=== PATIENT | male | born 1935 | race Caucasian/White ===

== ENCOUNTER → 2022-08-22 | Outpatient (CLI) | payer MEDICARE, BC ==
[2022-08-22 12:24] LABS: Partial Thromboplastin Time 50.7 sec (22.0-30.0); Prothrombin Time 86.8 sec (9.0-12.0)
[2022-08-22 12:26] LABS: INR 8.6 (<1.2)
== END | disposition home or self-care (01) ==
LOC: LABWHC1 10:57
PROVIDERS: ATTEND Nurse Practitioner Adult Health
DX: I48.0 Paroxysmal atrial fibrillation (principal)
CPT/HCPCS: 36415; 85610; 85730

== ENCOUNTER → 2022-09-07 | Outpatient (CLI) | payer MEDICARE, BC ==
[2022-09-07 11:07] LABS: Prothrombin Time 96.1 sec (9.0-12.0)
[2022-09-07 12:25] LABS: INR 9.4 (<1.2)
== END | disposition home or self-care (01) ==
LOC: LABWHC1 10:15
PROVIDERS: ATTEND Nurse Practitioner Adult Health
DX: I48.11 Longstanding persistent atrial fibrillation (principal)
CPT/HCPCS: 36415; 85610

== ENCOUNTER 2023-02-07 19:28 | Emergency (ER) | payer MEDICARE, BC ==
[2023-02-07 19:46] VITALS: TEMP 97.5
[2023-02-07] MEDS ORDERED: MORPHINE SULFATE 4 MG/ML SYRINGE IM STA (20:03)
--- NOTE | 2023-02-07 20:04 | ED ---
General Adult HPI - General Chief complaint: Extremity Injury, Lower Stated complaint: Fall Source: patient Mode of arrival: EMS Limitations: no limitations - History of Present Illness Initial comments: A 88-year-old male on Coumadin presents to the ED with a chief complaint of fall. Patient states he lost his balance and he fell forward onto the cement. Patient states that he was able to catch himself with his hands and notes that he landed on his right knee. Denies head injury at this time. No LOC. Now notes pain of his ribs and his right knee. Denies difficulty breathing. Denies headache. No other complaints. - Related Data Home Medications Medication Instructions Recorded Confirmed Digoxin [Lanoxin] 250 mcg PO DAILY 03/15/16 03/21/16 Glimepiride [Amaryl] 2 mg PO DAILY 03/15/16 03/21/16 Pioglitazone [Actos] 15 mg PO DAILY 03/15/16 03/21/16 Tamsulosin [Flomax] 0.4 mg PO Q48H 03/15/16 03/21/16 Warfarin [Coumadin] 5 mg PO DAILY 03/15/16 03/21/16 amLODIPine [Norvasc] 5 mg PO DAILY 03/15/16 03/21/16 atenoloL [Tenormin] 25 mg PO BID 03/15/16 03/21/16 hydrALAZINE HCL [Apresoline] 50 mg PO DAILY 03/15/16 03/21/16 hydroCHLOROthiazide [Hydrodiuril] 25 mg PO DAILY 03/15/16 03/21/16 lisinopriL [Zestril] 20 mg PO DAILY 03/15/16 03/21/16 sitaGLIPtin PHOS/metFORMIN HCL 1 each PO DAILY 03/15/16 03/21/16 [Janumet 50-500 mg Tablet] Previous Rx's Medication Instructions Recorded Cephalexin [Keflex] 500 mg PO Q8HR #10 cap 03/21/16 Acetaminophen [Tylenol Extra 500 mg PO Q8HR #30 tablet 02/07/23 Strength] Allergies Allergy/AdvReac Type Severity Reaction Status Date / Time No Known Allergies Allergy Verified 02/07/23 19:42 Review of Systems ROS Statement: Those systems with pertinent positive or pertinent negative responses have been documented in the HPI. ROS Other: All systems not noted in ROS Statement are negative. Past Medical History Past Medical History: Diabetes Mellitus, Hypertension, Osteoarthritis (OA) Additional Past Medical History / Comment(s): hiatal hernia, History of Any Multi-Drug Resistant Organisms: None Reported Past Surgical History: Pacemaker Additional Past Surgical History / Comment(s): saeid cataracts Past Anesthesia/Blood Transfusion Reactions: No Reported Reaction Type of Cardiac Device: Permanent Pacemaker Device Placement Date:: 2007 Past Psychological History: No Psychological Hx Reported Smoking Status: Former smoker Past Alcohol Use History: None Reported Past Drug Use History: None Reported - Past Family History Mother Family Medical History: Cancer Father Family Medical History: Cancer General Exam Limitations: no limitations General appearance: alert, in no apparent distress Head exam: Present: atraumatic, normocephalic Neck exam: Present: other (No midline cervical spinal tenderness to palpation) Respiratory exam: Present: normal lung sounds bilaterally Cardiovascular Exam: Present: regular rate, normal rhythm Extremities exam: Present: tenderness (Tenderness around the right patella. No crepitus or step-off. Surrounding soft tissue swelling.), other (Strength and sensation of bilateral upper and lower extremities equal and intact. DP PT pulses 2+.) Neurological exam: Present: alert, oriented X3 Skin exam: Present: warm, dry Course Vital Signs 02/07/23 19:36 Temperature 97.5 F L Pulse Rate 74 Respiratory 20 Rate Blood Pressure 172/86 O2 Sat by Pulse 95 Oximetry Medical Decision Making - Medical Decision Making Was pt. sent in by a medical professional or institution (, PA, EXTRACTIONS TECHNOLOGIST, urgent care, hospital, or fci...) When possible be specific @ -No Did you speak to anyone other than the patient for history (EMS, parent, family, police, friend...)? What history was obtained from this source @ -No Did you review nursing and triage notes (agree or disagree)? Why? @ -I reviewed and agree with nursing and triage notes Were old charts reviewed (outside hosp., previous admission, EMS record, old EKG, old radiological studies, urgent care reports/EKG's, fci records)? Report findings @ - reviewed showing patient on Coumadin. Differential Diagnosis (chest pain, altered mental status, abdominal pain women, abdominal pain men, vaginal bleeding, weakness, fever, dyspnea, syncope, headache, dizziness, GI bleed, back pain, seizure, CVA, palpatations, mental health, musculoskeletal)? @ -Acute fracture, acute hemorrhage. This is not meant to be an all-inclusive list. EKG interpreted by me (3pts min.). @ -None X-rays interpreted by me (1pt min.). @ -x-Ray showed showed no acute process of the chest or right knee. CT interpreted by me (1pt min.). @ -None done U/S interpreted by me (1pt. min.). @ -None done What testing was considered but not performed or refused? (CT, X-rays, U/S, labs)? Why? @ -None What meds were considered but not given or refused? Why? @ -None Did you discuss the management of the patient with other professionals (professionals i.e. , PA, EXTRACTIONS TECHNOLOGIST, lab, RT, psych nurse, social media analyst, application security consultant, teacher, radiological defense officer, case reviewer)? Give summary @ -No Was smoking cessation discussed for >3mins.? @ -No Was critical care preformed (if so, how long)? @ -No Were there social determinants of health that impacted care today? How? (Homelessness, low income, unemployed, alcoholism, drug addiction, transportation, low edu. Level, literacy, decrease access to med. care, residential, rehab)? @ -No Was there de-escalation of care discussed even if they declined (Discuss DNR or withdrawal of care, Hospice)? DNR status @ -No What co-morbidities impacted this encounter? (DM, HTN, Smoking, COPD, CAD, Cancer, CVA, ARF, Chemo, Hep., AIDS, mental health diagnosis, sleep apnea, morbid obesity)? @ -None Was patient admitted / discharged? Hospital course, mention meds given and route, prescriptions, significant lab abnormalities, going to OR and other pertinent info. @ -Discharged. Imaging as above. Patient provided 4 mg morphine with improvement of the pain. Discharged home in stable condition. Undiagnosed new problem with uncertain prognosis? @ -No Drug Therapy requiring intensive monitoring for toxicity (Heparin, Nitro, Insulin, Cardizem)? @ -No Were any procedures done? @ -No Diagnosis/symptom? @ -Fall, knee pain. Acute, or Chronic, or Acute on Chronic? @ -Acute Uncomplicated (without systemic symptoms) or Complicated (systemic symptoms)? @ -Uncomplicated Side effects of treatment? @ -No Exacerbation, Progression, or Severe Exacerbation? @ -No Poses a threat to life or bodily function? How? (Chest pain, [place], [place], pneumonia, PE, COPD, DKA, ARF, appy, cholecystitis, CVA, Diverticulitis, Homicidal, Suicidal, threat to staff... and all critical care pts) @ -No Disposition Clinical Impression: Knee pain Disposition: HOME SELF-CARE Condition: Good Instructions (If sedation given, give patient instructions): Knee Pain (ED) Additional Instructions: Please return to the Emergency Department if symptoms worsen or any other concerns. Prescriptions: Acetaminophen [Tylenol Extra Strength] 500 mg PO Q8HR #30 tablet Is patient prescribed a controlled substance at d/c from ED?: No Referrals: Kranthi Cuevas DO [Primary Care Provider] - 1-2 days
--- NOTE | 2023-02-07 20:51 | XR ---
EXAMINATION TYPE: XR chest 2V DATE OF EXAM: 01/27/2010 COMPARISON: Chest radiographs from 01/27/2010 TECHNIQUE: XR chest 2V Frontal and lateral views of the chest. CLINICAL INDICATION:Male, 88 years old with history of fall, rib pain; FINDINGS: Lungs/Pleura: There is no evidence of pleural effusion, focal consolidation, or pneumothorax. Pulmonary vascularity: Unremarkable. Heart/mediastinum: Cardiomediastinal silhouette is unremarkable. Two lead cardiac conduction device o verlying the left hemithorax with lead tips projecting over the right ventricle and right atrium. Musculoskeletal: No acute osseous pathology. IMPRESSION: No acute cardiopulmonary disease/process.
--- NOTE | 2023-02-07 20:52 | XR ---
EXAMINATION TYPE: XR knee complete RT DATE OF EXAM: 02/07/2023 8:43 PM INDICATION: Patient age:Male; 88 years old; Reason for study: r knee pain s/p fall; COMPARISON: None. TECHNIQUE: The Right knee(s) was examined in Frontal, lateral and oblique projections. FINDINGS: No evidence of any acute osseous pathology, soft tissue swelling, or joint effusion is no christine. Tricompartmental osteophyte formation involving the femoral condyles, tibial plateau and patell a. Mild joint space narrowing. Prepatellar edema. Quadriceps insertional enthesophyte on the patella. Enthesophyte of the tibial tuberosity. Atherosclerosis of the arterial vasculature. IMPRESSION: 1. No acute osseous pathology. 2. Moderate tricompartmental osteoarthritic changes. 3. Mild prepatellar edema.
[2023-02-07 22:06] VITALS: BP 157/75; PULSE 63; RESP 18
== END 2023-02-07 22:06 | disposition home or self-care (01) ==
LOC: EC 19:28
DX: M17.11 Unilateral primary osteoarthritis, right knee (principal); I10 Essential (primary) hypertension; E11.9 Type 2 diabetes mellitus without complications; M19.90 Unspecified osteoarthritis, unspecified site; Z87.891 Personal history of nicotine dependence; Z79.899 Other long term (current) drug therapy; W18.30XA Fall on same level, unspecified, initial encounter
CPT/HCPCS: 73562; 71046; 99283; 96372; J2270

== ENCOUNTER 2023-05-26 08:39 | Inpatient (IN) | payer MEDICARE, BC ==
--- NOTE | 2023-05-26 08:54 | ED ---
Fall HPI - General Chief Complaint: Fall Stated Complaint: Fall, Fractured Hip Time Seen by Provider: 05/26/23 08:40 Source: patient, EMS Mode of arrival: EMS Limitations: physical limitation - History of Present Illness Initial Comments: 88-year-old male presents emergency from via EMS chief complaint of trip and fall. Patient states that he may have struck his head but complains primarily of right hip pain. Patient states that he was given morphine by EMS. Patient is on Coumadin. Patient was placed in c-collar by EMS. Patient denies any fevers or chills no other complaints. Patient denies chest pain shortness of breath - Related Data Home Medications Medication Instructions Recorded Confirmed Glimepiride [Amaryl] 2 mg PO DAILY 03/15/16 05/26/23 Pioglitazone [Actos] 15 mg PO DAILY 03/15/16 05/26/23 Warfarin [Coumadin] 5 mg PO DAILY 03/15/16 05/26/23 amLODIPine [Norvasc] 5 mg PO DAILY 03/15/16 05/26/23 atenoloL [Tenormin] 25 mg PO DAILY 03/15/16 05/26/23 hydrALAZINE HCL [Apresoline] 50 mg PO TID 03/15/16 05/26/23 hydroCHLOROthiazide [Hydrodiuril] 25 mg PO DAILY 03/15/16 05/26/23 lisinopriL [Zestril] 20 mg PO BID 03/15/16 05/26/23 metFORMIN HCL [Glucophage] 1,000 mg PO BID 05/26/23 05/26/23 Allergies Allergy/AdvReac Type Severity Reaction Status Date / Time No Known Allergies Allergy Verified 05/26/23 12:07 Review of Systems ROS Statement: Those systems with pertinent positive or pertinent negative responses have been documented in the HPI. ROS Other: All systems not noted in ROS Statement are negative. Past Medical History Past Medical History: Diabetes Mellitus, Hypertension, Osteoarthritis (OA) Additional Past Medical History / Comment(s): hiatal hernia, History of Any Multi-Drug Resistant Organisms: None Reported Past Surgical History: Pacemaker Additional Past Surgical History / Comment(s): saeid cataracts Past Anesthesia/Blood Transfusion Reactions: No Reported Reaction Type of Cardiac Device: Permanent Pacemaker Device Placement Date:: 2007 Past Psychological History: No Psychological Hx Reported Smoking Status: Former smoker Past Alcohol Use History: None Reported Past Drug Use History: None Reported - Past Family History Mother Family Medical History: Cancer Father Family Medical History: Cancer General Exam Limitations: no limitations General appearance: alert, in no apparent distress Head exam: Present: atraumatic, normocephalic, normal inspection Eye exam: Present: normal appearance, PERRL, EOMI. Absent: scleral icterus, conjunctival injection, periorbital swelling ENT exam: Present: normal exam, mucous membranes moist Neck exam: Present: normal inspection. Absent: tenderness, meningismus, full ROM (Patient c-collar), lymphadenopathy Respiratory exam: Present: normal lung sounds bilaterally. Absent: respiratory distress, wheezes, rales, rhonchi, stridor Cardiovascular Exam: Present: regular rate, normal rhythm, normal heart sounds. Absent: systolic murmur, diastolic murmur, rubs, gallop, clicks Extremities exam: Present: other (Right hip tenderness, there is minimal shortening, pedal pulses palpable and equal) Back exam: Present: full ROM. Absent: tenderness Course Vital Signs 05/26/23 05/26/23 05/26/23 08:40 10:00 11:00 Temperature 98.2 F Pulse Rate 59 L 62 59 L Respiratory 22 18 18 Rate Blood Pressure 189/88 158/68 160/74 O2 Sat by Pulse 99 98 98 Oximetry 05/26/23 05/26/23 11:36 12:00 Temperature Pulse Rate 60 104 H Respiratory 18 18 Rate Blood Pressure 160/74 160/74 O2 Sat by Pulse 91 L 93 L Oximetry Medical Decision Making - Medical Decision Making Was pt. sent in by a medical professional or institution (, PA, ENVELOPE FOLDING MACHINE OPERATOR, urgent care, hospital, or long term...) When possible be specific @ -No Did you speak to anyone other than the patient for history (EMS, parent, family, police, friend...)? What history was obtained from this source @ -Family and EMS providing prehospital injury vitals treatment medications pro vided Did you review nursing and triage notes (agree or disagree)? Why? @ -I reviewed and agree with nursing and triage notes Were old charts reviewed (outside hosp., previous admission, EMS record, old EKG, old radiological studies, urgent care reports/EKG's, long term records)? Report findings @ -No old charts were reviewed Differential Diagnosis (chest pain, altered mental status, abdominal pain women, abdominal pain men, vaginal bleeding, weakness, fever, dyspnea, syncope, headache, dizziness, GI bleed, back pain, seizure, CVA, palpatations, mental health, musculoskeletal)? @ -Fall, hip fracture, intracranial hemorrhage EKG interpreted by me (3pts min.). @ -As above X-rays interpreted by me (1pt min.). @ -Chest x-ray shows no acute process right hip, pelvis x-ray showing right IT fracture CT interpreted by me (1pt min.). @ -CT brain, C-spine show no acute intracranial hemorrhage, cervical fracture U/S interpreted by me (1pt. min.). @ -None done What testing was considered but not performed or refused? (CT, X-rays, U/S, labs)? Why? @ -None What meds were considered but not given or refused? Why? @ -None Did you discuss the management of the patient with other professionals (professionals i.e. , PA, ENVELOPE FOLDING MACHINE OPERATOR, lab, RT, psych nurse, social insurance adviser, insole and outsole preparer, teacher, building drafting officer, telephonic nurse case manager)? Give summary @ -[facility] on-call for orthopedics accepts admission Was smoking cessation discussed for >3mins.? @ -No Was critical care preformed (if so, how long)? @ -No Were there social determinants of health that impacted care today? How? (Homelessness, low income, unemployed, alcoholism, drug addiction, transportation, low edu. Level, literacy, decrease access to med. care, long term, rehab)? @ -No Was there de-escalation of care discussed even if they declined (Discuss DNR or withdrawal of care, Hospice)? DNR status @ -No What co-morbidities impacted this encounter? (DM, HTN, Smoking, COPD, CAD, Cancer, CVA, ARF, Chemo, Hep., AIDS, mental health diagnosis, sleep apnea, morbid obesity)? @ -None Was patient admitted / discharged? Hospital course, mention meds given and route, prescriptions, significant lab abnormalities, going to OR and other pertinent info. @ -Admitted patient is admitted to orthopedic service with consult to medicine for surgical clearance patient has a right hip fracture. Patient was provided analgesics symptoms are stable time. Undiagnosed new problem with uncertain prognosis? @ -No Drug Therapy requiring intensive monitoring for toxicity (Heparin, Nitro, Insulin, Cardizem)? @ -No Were any procedures done? @ -No Diagnosis/symptom? @ -Fall, right IT fracture Acute, or Chronic, or Acute on Chronic? @ -Acute Uncomplicated (without systemic symptoms) or Complicated (systemic symptoms)? @ -complicated Side effects of treatment? @ -No Exacerbation, Progression, or Severe Exacerbation? @ -No Poses a threat to life or bodily function? How? (Chest pain, [place], [place], pneumonia, PE, COPD, DKA, ARF, appy, cholecystitis, CVA, Diverticulitis, Homicidal, Suicidal, threat to staff... and all critical care pts) @ -No - Lab Data Result diagrams: 05/26/23 08:54 05/26/23 08:54 Lab Results 05/26/23 05/26/23 05/26/23 Range/Units 08:54 08:54 08:54 WBC 12.8 H (3.8-10.6) k/uL RBC 4.46 (4.30-5.90) m/uL Hgb 13.9 (13.0-17.5) gm/dL Hct 41.8 (39.0-53.0) % MCV 93.7 (80.0-100.0) fL MCH 31.2 (25.0-35.0) pg MCHC 33.3 (31.0-37.0) g/dL RDW 13.3 (11.5-15.5) % Plt Count 136 L (150-450) k/uL MPV 12.0 Neutrophils % 86 % Lymphocytes % 4 % Monocytes % 8 % Eosinophils % 0 % Basophils % 0 % Neutrophils # 11.1 H (1.3-7.7) k/uL Lymphocytes # 0.5 L (1.0-4.8) k/uL Monocytes # 1.1 H (0-1.0) k/uL Eosinophils # 0.0 (0-0.7) k/uL Basophils # 0.0 (0-0.2) k/uL PT 12.4 H (9.0-12.0) sec INR 1.2 H (<1.2) APTT 19.8 L (22.0-30.0) sec Sodium 134 L (137-145) mmol/L Potassium 3.8 (3.5-5.1) mmol/L Chloride 95 L (98-107) mmol/L Carbon Dioxide 18 L (22-30) mmol/L Anion Gap 21 mmol/L BUN 25 H (9-20) mg/dL Creatinine 1.20 (0.66-1.25) mg/dL Est GFR (CKD-EPI)AfAm 63 (>60 ml/min/1.73 sqM) Est GFR (CKD-EPI)NonAf 54 (>60 ml/min/1.73 sqM) Glucose 402 H (74-99) mg/dL Calcium 9.3 (8.4-10.2) mg/dL Total Bilirubin 2.1 H (0.2-1.3) mg/dL AST 43 (17-59) U/L ALT 31 (4-49) U/L Alkaline Phosphatase 96 (38-126) U/L Total Protein 7.1 (6.3-8.2) g/dL Albumin 4.1 (3.5-5.0) g/dL - EKG Data -: EKG Interpreted by Me EKG Comments: EKG performed a: 47 paced rhythm at 60 a 263 QRS 200 QT/QTC 531/531 Disposition Clinical Impression: Fall, Fracture, intertrochanteric, right femur Disposition: ADMITTED IP TO THIS HOSP Condition: Fair Time of Disposition: 10:54
[2023-05-26 09:24] LABS: Basophils % (A) 0 %; Eosinophils % (A) 0 %; HCT 41.8 % (39.0-53.0); HGB 13.9 gm/dL (13.0-17.5); Lymphocytes # (A) 0.5 k/uL (1.0-4.8); Lymphocytes % (A) 4 %; MCH 31.2 pg (25.0-35.0); MCHC 33.3 g/dL (31.0-37.0); MCV 93.7 fL (80.0-100.0); Monocytes # (A) 1.1 k/uL (0-1.0); Monocytes % (A) 8 %; Neutrophils # (A) 11.1 k/uL (1.3-7.7); Neutrophils % (A) 86 %; Platelet Count 136 k/uL (150-450); RBC 4.46 m/uL (4.30-5.90); RDW 13.3 % (11.5-15.5); WBC 12.8 k/uL (3.8-10.6)
[2023-05-26 09:38] LABS: ALT 31 U/L (4-49); AST 43 U/L (17-59); African American GFR (CKD) 63 (>60 ml/min/1.73 sqM); Albumin 4.1 g/dL (3.5-5.0); Alkaline Phosphatase 96 U/L (38-126); Anion Gap 21 mmol/L; Blood Urea Nitrogen 25 mg/dL (9-20); Calcium 9.3 mg/dL (8.4-10.2); Carbon Dioxide 18 mmol/L (22-30); Chloride 95 mmol/L (98-107); Glucose 402 mg/dL (74-99); Non-African American GFR(CKD) 54 (>60 ml/min/1.73 sqM); Potassium 3.8 mmol/L (3.5-5.1); Sodium 134 mmol/L (137-145); Total Bilirubin 2.1 mg/dL (0.2-1.3); Total Protein 7.1 g/dL (6.3-8.2)
--- NOTE | 2023-05-26 09:49 | CT ---
EXAMINATION TYPE: CT brain kody gee DATE OF EXAM: 05/26/2023 COMPARISON: None HISTORY: fall CT DLP: 1483.2 mGycm Automated exposure control for dose reduction was used. TECHNIQUE: CT scan of the head and cervical spine are performed without contrast. FINDINGS: Head CT: The ventricles, basal cisterns and sulci over convexities within normal limits and there is no mass e ffect or shift of midline structures. There is no acute intra or extra-axial hemorrhage. There is moderate chronic white matter demyelination. The posterior fossa is grossly normal. The intraorbital contents appear normal and symmetric. There are mild chronic inflammatory changes in the maxillary sinuses but there are no air-fluid level s to suggest acute sinusitis. The mastoid air cells are well aerated. The calvarium and overlying soft tissues are intact. CT cervical spine. Cervical vertebral segments are normal in height and alignment and there is no fracture subluxation. The craniovertebral junction ratio is normal. There is mild to moderate degenerative disease throughout the cervical region greatest at the C5-6 an d C6-7 levels where there is mild to moderate disc space narrowing and spondylosis. There is moderate facet and uncovertebral joint arthropathy throughout the cervical region. IMPRESSION: 1. No acute trauma to the head or neck. 2. No acute bleed or mass effect 3. No acute trauma to the cervical spine but significant degenerative disc disease and osteoarthritic changes as described above.
[2023-05-26 09:59] LABS: INR 1.2 (<1.2); Prothrombin Time 12.4 sec (9.0-12.0)
[2023-05-26 10:22] LABS: Partial Thromboplastin Time 19.8 sec (22.0-30.0)
[2023-05-26] MEDS ORDERED: SODIUM CHLORIDE 0.9% 500 ML 500 ML IV ONE (10:26)
[2023-05-26] MEDS ORDERED: INSULIN REGULAR 100 UNIT/ML VIAL (IV) IV ONE (10:26)
[2023-05-26] MEDS ORDERED: HYDROmorphone 0.5 MG/0.5 ML SYRINGE IVP STA (10:46)
[2023-05-26] MEDS ORDERED: ONDANSETRON 4 MG/2 ML VIAL IVP PRN (10:55)
[2023-05-26] MEDS ORDERED: NALOXONE 0.4 MG/ML 1 ML VIAL IV PRN (10:55)
--- NOTE | 2023-05-26 10:55 | XR ---
EXAMINATION TYPE: XR Hip RT and AP Pelvis DATE OF EXAM: 05/26/2023 COMPARISON: None HISTORY: Pain following fall TECHNIQUE: A single AP view of the pelvis is obtained. Two views of the right hip are obtained. FINDINGS: There is a displaced intertrochanteric fracture of the right hip. The left hip is intact. The pelvic ring is intact without diastasis or fracture. IMPRESSION: 1. Displaced intertrochanteric fracture the right hip. 2. No pelvic fracture.
--- NOTE | 2023-05-26 10:57 | XR ---
EXAMINATION TYPE: XR chest 1V DATE OF EXAM: 05/26/2023 COMPARISON: 02/07/2023 HISTORY: Fall TECHNIQUE: Single frontal view of the chest is obtained. FINDINGS: There is a 2-lead cardiac pacemaker. Cardiac silhouette is normal in size and there is no pulmonary v ascular congestion. There is no airspace/consolidative opacity There is mild interstitial prominence which was seen previously and is likely chronic. There is no pneumothorax or pleural effusion. The osseous structures are intact IMPRESSION: 1. No acute cardiopulmonary disease. 2. No evidence of acute trauma.
--- NOTE | 2023-05-26 11:41 | XR ---
Right femur. HISTORY: Pain findings trauma COMPARISON: None TECHNIQUE: 4 portable views of the right femur were obtained FINDINGS: There is a displaced intertrochanteric fracture of the right femur. There is no right hip dislocation . Mid and distal right femur are intact. IMPRESSION: Displaced intertrochanteric fracture of the right femur.
[2023-05-26] MEDS ORDERED: ACETAMINOPHEN TAB 325 MG TAB PO PRN (12:26)
--- NOTE | 2023-05-26 12:28 | P.HPOR ---
History of Present Illness H&P Date: 05/26/23 Chief Complaint: Right hip pain Patient is an 88-year-old male who presents to the emergency department early this morning status post fall at home. Orthopedics was contacted due to a right hip IT fracture. Patient was seen at bedside with present during encounter late this morning. Patient states he is having a lot of right hip pain at this time. Patient states at 2 AM this morning he got up out of bed to use the bathroom when he tripped and fell landing on his right hip on the floor. Patient denies hitting his head/losing consciousness. Patient states imm ediately began to have right hip pain and could not get up under his own power. Patient was brought into the hospital via EMS. X-ray of the right hip does demonstrate right hip IT fracture. Patient states the pain is somewhat controlled with pain medication, however, patient states the pain is sharp. She says there is some radiation of pain down the right leg. Patient denies any numbness/tingling. Patient says he does have a pacemaker and is currently on Coumadin, however, patient does not take his medication regularly and cannot recall last dose of Coumadin he did take. Patient does follow with Dr. Akhtar for cardiology. Patient's glucose was 400 when he came in this morning. Vandanatomasz lassiter does follow with Dr. Cuevas for primary care. Patient denies any previous orthopedic surgical history. Patient usually ambulates independently at home. Patient denies chest pain, fever, [place] breath, nausea, lying, change in vision, loss of bowel/bladder control. Past Medical History Past Medical History: Diabetes Mellitus, Hypertension, Osteoarthritis (OA) Additional Past Medical History / Comment(s): hiatal hernia, History of Any Multi-Drug Resistant Organisms: None Reported Past Surgical History: Pacemaker Additional Past Surgical History / Comment(s): saeid cataracts Past Anesthesia/Blood Transfusion Reactions: No Reported Reaction Type of Cardiac Device: Permanent Pacemaker Device Placement Date:: 2007 Past Psychological History: No Psychological Hx Reported Smoking Status: Former smoker Past Alcohol Use History: None Reported Past Drug Use History: None Reported - Past Family History Mother Family Medical History: Cancer Father Family Medical History: Cancer Medications and Allergies Home Medications Medication Instructions Recorded Confirmed Type Glimepiride [Amaryl] 2 mg PO DAILY 03/15/16 05/26/23 History Pioglitazone [Actos] 15 mg PO DAILY 03/15/16 05/26/23 History Warfarin [Coumadin] 5 mg PO DAILY 03/15/16 05/26/23 History amLODIPine [Norvasc] 5 mg PO DAILY 03/15/16 05/26/23 History atenoloL [Tenormin] 25 mg PO DAILY 03/15/16 05/26/23 History hydrALAZINE HCL [Apresoline] 50 mg PO TID 03/15/16 05/26/23 History hydroCHLOROthiazide [Hydrodiuril] 25 mg PO DAILY 03/15/16 05/26/23 History lisinopriL [Zestril] 20 mg PO BID 03/15/16 05/26/23 History metFORMIN HCL [Glucophage] 1,000 mg PO BID 05/26/23 05/26/23 History Allergies Allergy/AdvReac Type Severity Reaction Status Date / Time No Known Allergies Allergy Verified 05/26/23 12:07 Physical Examination Inspection: Right leg is shortened and actually rotated. Negative for erythema/open fractures. Negative for ecchymosis Sensation: Equal, symmetric, bilaterally intact at the upper and lower extremities on exam. Palpation: Significant tenderness to palpation throughout right hip on exam. Nontender to palpation throughout rest of exam Range of motion: Patient has full range of motion bilateral upper extremities on exam. There is no range of motion throughout the right lower extremity secondary to injury and pain in the right hip. Patient has full range of motion left lower extremity exam Motor: 4/5 in all major motor groups left lower extremity and bilateral upper extremities. Motor exam not performed in right hip and knee secondary to injury. Right ankle 3/5 in resisted dorsi/plantar flexion. Neurovascular: Radial pulses intact, 2+ bilaterally. DP pulse intact bilaterally. Cap refill under 3 seconds in digits upper extremities. Special tests: Positive log roll maneuver on the right. Negative Homans bilaterally. Negative clonus bilaterally. Negative Reynaldo Results - Labs Labs: Abnormal Lab Results - Last 24 Hours (Table) 05/26/23 05/26/23 05/26/23 Range/Units 08:54 08:54 08:54 WBC 12.8 H (3.8-10.6) k/uL Plt Count 136 L (150-450) k/uL Neutrophils # 11.1 H (1.3-7.7) k/uL Lymphocytes # 0.5 L (1.0-4.8) k/uL Monocytes # 1.1 H (0-1.0) k/uL PT 12.4 H (9.0-12.0) sec INR 1.2 H (<1.2) APTT 19.8 L (22.0-30.0) sec Sodium 134 L (137-145) mmol/L Chloride 95 L (98-107) mmol/L Carbon Dioxide 18 L (22-30) mmol/L BUN 25 H (9-20) mg/dL Glucose 402 H (74-99) mg/dL Total Bilirubin 2.1 H (0.2-1.3) mg/dL H & H 05/26/23 Range/Units 08:54 Hgb 13.9 (13.0-17.5) gm/dL Hct 41.8 (39.0-53.0) % Coagulation 05/26/23 Range/Units 08:54 INR 1.2 H (<1.2) Result Diagrams: 05/26/23 08:54 05/26/23 08:54 - Diagnostic results Hip x-ray: report reviewed, image reviewed (Right hip x-ray does demonstrate right hip IT fracture) Assessment and Plan Assessment: 1. Right hip IT fracture status post fall Plan: 1. Right hip IT fracture - patient examined at bedside this morning in the emergency department. X-ray of the right hip does demonstrate right hip IT fracture. Surgery has been scheduled for tomorrow, 05/27/2023 - right hip IM nail. Patient to be nothing by mouth after midnight tonight. Medicine has been consulted for clearance. Patient does have pacemaker and is currently on Coumadin - cardiology consulted for clearance as well. Regular diet for today. Nothing by mouth at midnight tonight. Remain nonweightbearing right l ower extremity at this time. Withhold thinners at this time. We'll continue to follow patient during a standard hospital. 2. Appreciate medical and cardio management -patient does need clearance for surgery 3. Pain management - Tylenol; [place] 4. DVT prophylaxis - mechanical; withhold thinners at this time 5. GI prophylaxis - senna 6. PT/OT - nonweightbearing right lower extremity 7. Encourage incentive spirometer use Time with Patient: Less than 30
[2023-05-26] MEDS: HYDROmorphone 0.5 MG/0.5 ML SYRINGE IVP PRN ×2 (14:01→19:43)
[2023-05-26] MEDS ORDERED: DEXTROSE 50% SYRINGE 50 ML IVP PRN ×2 (14:39)
--- NOTE | 2023-05-26 14:41 | P.CONS ---
History of Present Illness - Reason for Consult Consult date: 05/26/23 Medical management - History of Present Illness History of present illness; patient is a 88-year-old gentleman with past medical history significant for hypertension, diabetes mellitus, atrial fibrillation on Coumadin who presented to the hospital because of a fall. Patient apparently woke up this morning to use the restroom when he tripped and fell landing on his right side. Patient denies losing consciousness. Denies hitting his head. Patient was complaining of pain in his right hip and was not able to get up on his own, patient was brought to the ER. Initial lab work done in the ER showed WBC 12.8, hemoglobin 13.9, platelet count 136, sodium 134, potassium 3.8, BUN 25, creatinine 1.2 X-ray of the right hip does demonstrate right hip IT fracture Patient was admitted to orthopedics service REVIEW OF SYSTEMS: CONSTITUTIONAL: No fever, no malaise, no fatigue. HEENT: No recent visual problems or hearing problems. Denied any sore throat. CARDIOVASCULAR: No chest pain, orthopnea, PND, no palpitations, no syncope. PULMONARY: No shortness of breath, no cough, no hemoptysis. GASTROINTESTINAL: No diarrhea, no nausea, no vomiting, no abdominal pain. NEUROLOGICAL: No headaches, no weakness, no numbness. HEMATOLOGICAL: Denies any bleeding or petechiae. GENITOURINARY: Denies any burning micturition, frequency, or urgency. MUSCULOSKELETAL/RHEUMATOLOGICAL: Right hip pain ENDOCRINE: Denies any polyuria or polydipsia. The rest of the 14-point review of systems is negative. PHYSICAL EXAMINATION: GENERAL: The patient is alert and oriented x3, not in any acute distress. Well developed, well nourished. HEENT: Pupils are round and equally reacting to light. EOMI. No scleral icterus. No conjunctival pallor. Normocephalic, atraumatic. No pharyngeal erythema. No thyromegaly. CARDIOVASCULAR: S1 and S2 present. No murmurs, rubs, or gallops. PULMONARY: Chest is clear to auscultation, no wheezing or crackles. ABDOMEN: Soft, nontender, nondistended, normoactive bowel sounds. No palpable organomegaly. MUSCULOSKELETAL: Right leg externally rotated EXTREMITIES: No cyanosis, clubbing, or pedal edema. NEUROLOGICAL: Gross neurological examination did not reveal any focal deficits. SKIN: No rashes. Assessment and plan Right hip fracture Hypertension [id number] diabetes mellitus Monitor vital signs Monitor CBC Monitor CMP Fall precautions Continue pain management per orthopedics Hold Coumadin for now Resume blood pressure medications Cardiology consulted for cardiac clearance Patient is medically cleared , patient has moderate risk for complications Labs and medication were reviewed.. Continue same treatment. Continue with symptomatic treatment. Resume home medication. Monitor labs and vitals. DVT and GI prophylaxis. Further recommendations as per clinical course of the patient Dictation was produced using [employer] dictation software. please excuse any grammatical, word or spelling errors. Past Medical History Past Medical History: Diabetes Mellitus, Hypertension, Osteoarthritis (OA) Additional Past Medical History / Comment(s): hiatal hernia, History of Any Multi-Drug Resistant Organisms: None Reported Past Surgical History: Pacemaker Additional Past Surgical History / Comment(s): saeid cataracts Past Anesthesia/Blood Transfusion Reactions: No Reported Reaction Type of Cardiac Device: Permanent Pacemaker Device Placement Date:: 2007 Past Psychological History: No Psychological Hx Reported Smoking Status: Former smoker Past Alcohol Use History: None Reported Past Drug Use History: None Reported - Past Family History Mother Family Medical History: Cancer Father Family Medical History: Cancer Medications and Allergies Home Medications Medication Instructions Recorded Confirmed Type Glimepiride [Amaryl] 2 mg PO DAILY 03/15/16 05/26/23 History Pioglitazone [Actos] 15 mg PO DAILY 03/15/16 05/26/23 History Warfarin [Coumadin] 5 mg PO DAILY 03/15/16 05/26/23 History amLODIPine [Norvasc] 5 mg PO DAILY 03/15/16 05/26/23 History atenoloL [Tenormin] 25 mg PO DAILY 03/15/16 05/26/23 History hydrALAZINE HCL [Apresoline] 50 mg PO TID 03/15/16 05/26/23 History hydroCHLOROthiazide [Hydrodiuril] 25 mg PO DAILY 03/15/16 05/26/23 History lisinopriL [Zestril] 20 mg PO BID 03/15/16 05/26/23 History metFORMIN HCL [Glucophage] 1,000 mg PO BID 05/26/23 05/26/23 History Allergies Allergy/AdvReac Type Severity Reaction Status Date / Time No Known Allergies Allergy Verified 05/26/23 12:07 Physical Exam Vitals: Vital Signs Temp Pulse Resp BP Pulse Ox 05/26/23 12:00 104 H 18 160/74 93 L 05/26/23 11:36 60 18 160/74 91 L 05/26/23 11:00 59 L 18 160/74 98 05/26/23 10:00 62 18 158/68 98 05/26/23 08:40 98.2 F 59 L 22 189/88 99 Intake and Output 05/25/23 05/26/23 05/26/23 22:59 06:59 14:59 Other: Weight 81.647 kg Results CBC & Chem 7: 05/26/23 08:54 05/26/23 08:54 Labs: Abnormal Lab Results - Last 24 Hours (Table) 05/26/23 05/26/23 05/26/23 Range/Units 08:54 08:54 08:54 WBC 12.8 H (3.8-10.6) k/uL Plt Count 136 L (150-450) k/uL Neutrophils # 11.1 H (1.3-7.7) k/uL Lymphocytes # 0.5 L (1.0-4.8) k/uL Monocytes # 1.1 H (0-1.0) k/uL PT 12.4 H (9.0-12.0) sec INR 1.2 H (<1.2) APTT 19.8 L (22.0-30.0) sec Sodium 134 L (137-145) mmol/L Chloride 95 L (98-107) mmol/L Carbon Dioxide 18 L (22-30) mmol/L BUN 25 H (9-20) mg/dL Glucose 402 H (74-99) mg/dL Total Bilirubin 2.1 H (0.2-1.3) mg/dL
[2023-05-26 14:48] LABS: Glucose,Whole Blood 384 mg/dL (70-110)
[2023-05-26] MEDS: hydrALAZINE HCL 50 MG TAB PO SCH ×2 (15:38→21:59)
[2023-05-26] MEDS: HYDROcodone/APAP 5-325MG 1 EACH TAB PO PRN (15:38)
[2023-05-26 16:30] LABS: Glucose,Whole Blood 345 mg/dL (70-110)
[2023-05-26] MEDS: INSULIN ASPART (NovoLOG) 100 UNIT/ML VIAL SQ SCH ×2 (17:08→21:59)
[2023-05-26] MEDS ORDERED: INSULIN ASPART (NovoLOG) 100 UNIT/ML VIAL SQ ONE (17:20)
[2023-05-26 19:42] LABS: Glucose,Whole Blood 315 mg/dL (70-110)
[2023-05-26 21:55] LABS: Glucose,Whole Blood 238 mg/dL (70-110)
[2023-05-26] MEDS: lisinopriL 20 MG TAB PO SCH (21:59)
[2023-05-27] MEDS: HYDROmorphone 0.5 MG/0.5 ML SYRINGE IVP PRN ×4 (01:05→20:14)
[2023-05-27 06:08] LABS: Glucose,Whole Blood 213 mg/dL (70-110)
[2023-05-27] MEDS: INSULIN ASPART (NovoLOG) 100 UNIT/ML VIAL SQ SCH ×4 (06:14→21:03)
--- NOTE | 2023-05-27 08:16 | P.CRDCN ---
History of Present Illness History of present illness: Stable for surgery continue cardiac meds periop complete heart block, s/p [place] ppm magnet over device intraop atorvastatin added full consult to follow Past Medical History Past Medical History: Diabetes Mellitus, Hypertension, Osteoarthritis (OA) Additional Past Medical History / Comment(s): hiatal hernia, History of Any Multi-Drug Resistant Organisms: None Reported Past Surgical History: Pacemaker Additional Past Surgical History / Comment(s): saeid cataracts Past Anesthesia/Blood Transfusion Reactions: No Reported Reaction Type of Cardiac Device: Permanent Pacemaker Device Placement Date:: 2007 Past Psychological History: No Psychological Hx Reported Smoking Status: Former smoker Past Alcohol Use History: None Reported Additional Past Alcohol Use History / Comment(s): quit smoking 50 yrs, smoked for 15 yrs- mostly pipe or cigar Past Drug Use History: None Reported - Past Family History Mother Family Medical History: Cancer Father Family Medical History: Cancer Medications and Allergies Home Medications Medication Instructions Recorded Confirmed Type Glimepiride [Amaryl] 2 mg PO DAILY 03/15/16 05/26/23 History Pioglitazone [Actos] 15 mg PO DAILY 03/15/16 05/26/23 History Warfarin [Coumadin] 5 mg PO DAILY 03/15/16 05/26/23 History amLODIPine [Norvasc] 5 mg PO DAILY 03/15/16 05/26/23 History atenoloL [Tenormin] 25 mg PO DAILY 03/15/16 05/26/23 History hydrALAZINE HCL [Apresoline] 50 mg PO TID 03/15/16 05/26/23 History hydroCHLOROthiazide [Hydrodiuril] 25 mg PO DAILY 03/15/16 05/26/23 History lisinopriL [Zestril] 20 mg PO BID 03/15/16 05/26/23 History metFORMIN HCL [Glucophage] 1,000 mg PO BID 05/26/23 05/26/23 History Allergies Allergy/AdvReac Type Severity Reaction Status Date / Time No Known Allergies Allergy Verified 05/26/23 12:07 Physical Exam Vitals: Vital Signs Temp Pulse Pulse Resp BP BP Pulse Ox 05/27/23 02:00 98.9 F 65 18 132/66 96 05/26/23 21:56 67 141/70 05/26/23 20:00 98.9 F 55 L 18 146/79 94 L 05/26/23 15:40 98.1 F 60 20 176/82 96 05/26/23 12:00 104 H 18 160/74 93 L 05/26/23 11:36 60 18 160/74 91 L 05/26/23 11:00 59 L 18 160/74 98 05/26/23 10:00 62 18 158/68 98 05/26/23 08:40 98.2 F 59 L 22 189/88 99 Intake and Output 05/26/23 05/27/23 05/27/23 22:59 06:59 14:59 Output Total 1140 500 Balance -1140 -500 Output: Urine 1140 500 Other: Voiding Method Indwelling Catheter Weight 81.647 kg Results 05/26/23 08:54 05/26/23 08:54 Cardiac Enzymes 05/26/23 05/26/23 05/26/23 Range/Units 08:54 15:15 19:10 AST 43 (17-59) U/L Troponin I 0.066 H* 0.069 H* (0.000-0.034) ng/mL Coagulation 05/26/23 Range/Units 08:54 PT 12.4 H (9.0-12.0) sec APTT 19.8 L (22.0-30.0) sec CBC 05/26/23 Range/Units 08:54 WBC 12.8 H (3.8-10.6) k/uL RBC 4.46 (4.30-5.90) m/uL Hgb 13.9 (13.0-17.5) gm/dL Hct 41.8 (39.0-53.0) % Plt Count 136 L (150-450) k/uL Comprehensive Metabolic Panel 05/26/23 Range/Units 08:54 Sodium 134 L (137-145) mmol/L Potassium 3.8 (3.5-5.1) mmol/L Chloride 95 L (98-107) mmol/L Carbon Dioxide 18 L (22-30) mmol/L BUN 25 H (9-20) mg/dL Creatinine 1.20 (0.66-1.25) mg/dL Glucose 402 H (74-99) mg/dL Calcium 9.3 (8.4-10.2) mg/dL AST 43 (17-59) U/L ALT 31 (4-49) U/L Alkaline Phosphatase 96 (38-126) U/L Total Protein 7.1 (6.3-8.2) g/dL Albumin 4.1 (3.5-5.0) g/dL Current Medications Generic Name Dose Route Start Last Admin Trade Name Freq PRN Reason Stop Dose Admin Acetaminophen 650 mg 05/26/23 12:26 Acetaminophen Tab 325 Mg Tab PO Q6HR PRN Fever and/ or Pain Hydrocodone Bitart/Acetaminophen 1 each 05/26/23 10:55 05/26/23 15:38 Hydrocodone/Apap 5-325mg 1 Each Tab PO 1 each Q4HR PRN Administration Moderate Pain (Scale 4 to 6) Amlodipine Besylate 5 mg 05/27/23 09:00 Amlodipine 5 Mg Tab PO DAILY [facility] Atenolol 25 mg 05/27/23 09:00 Atenolol 25 Mg Tab PO DAILY [facility] Dextrose/Water 25 ml 05/26/23 14:39 Dextrose 50% Syringe 50 Ml IVP PER PROTOCOL PRN Hypoglycemia Protocol Dextrose/Water 50 ml 05/26/23 14:39 Dextrose 50% Syringe 50 Ml IVP PER PROTOCOL PRN Hypoglycemia Protocol Hydralazine HCl 50 mg 05/26/23 16:00 05/26/23 21:59 Hydralazine Hcl 50 Mg Tab PO 50 mg TID [facility]ERALD Administration Hydromorphone HCl 0.5 mg 05/26/23 10:55 05/27/23 06:13 Hydromorphone 0.5 Mg/0.5 Ml Syringe IVP 0.5 mg Q3HR PRN Administration Moderate Pain (Scale 4 to 6) Insulin Aspart 0 unit 05/26/23 17:30 05/27/23 06:14 Insulin Aspart (Novolog) 100 Unit/Ml Vial SQ 100 unit ACHS GERALD Administration Protocol Lisinopril 20 mg 05/26/23 21:00 05/26/23 21:59 Lisinopril 20 Mg Tab PO 20 mg BID GERALD Administration Naloxone HCl 0.2 mg 05/26/23 10:55 Naloxone 0.4 Mg/Ml 1 Ml Vial IV Q2M PRN Opioid Reversal Ondansetron HCl 4 mg 05/26/23 10:55 Ondansetron 4 Mg/2 Ml Vial IVP Q8HR PRN Nausea And Vomiting Senna 8.6 mg 05/27/23 09:00 Sennosides 8.6 Mg Tab PO DAILY GERALD Intake and Output 05/26/23 05/27/23 05/27/23 22:59 06:59 14:59 Output Total 1140 500 Balance -1140 -500 Output: Urine 1140 500 Other: Voiding Method Indwelling Catheter Weight 81.647 kg 05/26/23 08:54 05/26/23 08:54
[2023-05-27] MEDS: atenoloL 25 MG TAB PO SCH (09:33)
[2023-05-27] MEDS: lisinopriL 20 MG TAB PO SCH ×2 (09:33→21:03)
[2023-05-27] MEDS: SENNOSIDES 8.6 MG TAB PO SCH (09:33)
[2023-05-27] MEDS: ATORVASTATIN 40 MG TAB PO SCH (09:33)
[2023-05-27] MEDS: HYDROcodone/APAP 5-325MG 1 EACH TAB PO PRN ×2 (09:33→17:32)
[2023-05-27] MEDS: amLODIPine 5 MG TAB PO SCH (09:33)
[2023-05-27] MEDS: hydrALAZINE HCL 50 MG TAB PO SCH ×3 (09:33→21:03)
--- NOTE | 2023-05-27 11:09 | P.PN ---
Progress Note - Text Progress Note Date: 05/27/23 Orthopedic Surgery Risk Review James Marte is a 88-year-old male presenting for evaluation of sudden onset right hip pain, inability to ambulate after fall from standing at home in the bathroom. It was my pleasure to have seen and examined James Marte. In our visit today we have had a chance to go over subjective complaints, physical examination findings and treatments including the natural course history without intervention and various interventional options. His imaging demonstrates right intertrochanteric fracture with subtrochanteric extension. On physical exam, James Marte demonstrates pain with motion of right lower extremity, which is NV intact at this time. I have explained to the patient that this fracture needs stabilization. Based on the patients imaging, physical exam, and the rapid progression and disabling nature of her symptoms, at this time I recommend surgery in the form or a: intramedullary nail fixation of right hip I discussed the risk and benefits of this procedure at length with James Marte and family at bedside including . Questions were invited and answered, and the patient wishes to proceed as outlined below. Currently, I am recommendin. intramedullary nail fixation right hip 2. Review of surgical risks and benefits as well as an educational packet on the proposed surgical procedure. Risks: All surgical procedures come with inherent risks, including those related to positioning, anesthesia, intraoperative findings, and postoperative complications. It is important to understand that surgery does not come with any guarantee of a successful outcome as complications and adverse events are always possible. The patient was given a handout discussing the surgical procedure and risks associated with the intervention, both of which were discussed with the patient. These risks include but are not limited to the following: - Experiencing same, different or even worse symptoms compared to before surgery. - Requiring further surgery or other forms of treatment presently or at some time in the future . - On an extreme but fortunately relatively rare basis severe complication such as blindness, stroke, heart attack, temporary and/or permanent nerve injury, paralysis, coma, or may occur, sometimes without known explanation. - Surgical complications may include but are not limited to risk of infection, fluid accumulation in the surgical dissection site, including a seroma or hematoma, that requires additional surgery, wound drainage, bleeding, new numbness or weakness, vision changes/loss, spinal fluid leakage, non-healing and/or infected incision, headaches, difficulty or inability to swallow, hoarseness, hemopneumothorax, pneumothorax, injury to nerves, spinal cord, blood vessels, lymphatics or other vital organs (i.e., bowel injury, injury to the great vessels); heterotopic bone formation; complications related to the hardware such as screws, rods, including misplaced hardware, device failure, hardware fracture/breakage, or hardware loosening; retained surgical instrumen tations or devices and the need for further surgery. - Medical risks of the planned surgery include but are not limited to generalized Infections to the whole body or local areas outside of the surgical site (sepsis), heart attack, bleeding, anaphylaxis, meningitis, seizure, epilepsy, hearing loss, burn mendoza, laceration of the head or other areas of the body, bruising, hypersensitivity of the skin, bladder over distension; allergic reaction; shoulder injury related to positioning; fat, blood and air clots to other areas of the body like heart, lungs, brain; failure of internal organs such as lungs, kidneys, liver and excessive bleeding. If blood transfusions are necessary, note that transfusions may cause intolerance reactions such as anaphylaxis or other complex reactions. Despite best efforts, the results of surgery might not heal in terms of bone, soft tissues such as skin, fascia, ligaments, and joints. [facility] has multiple operating rooms with single and overlapping rooms running daily. They currently function under the required guidelines as produced by the [employer] Committee with regards to the overlapping rooms and will continue to comply with changes to this policy as they occur. The requirements include and are complied with as follows: (1) the critical portions of the overlapping rooms will not occur at the same time, (2) the attending physician will be physically present during the critical portions of the procedure and immediately available during the entire case, and (3) a back-up attending is designated should the primary attending not be immediately available. The patient has had a chance to review all the listed information, has been given print outs detailing this information, and has had all his/her questions a nswered to their satisfaction. It was my pleasure to have seen and examined James Marte. In our visit today we have had a chance to go over my understanding of our patient's current condition, the natural course history without intervention and various interventional options. Questions were invited and answered, and the patient wishes to proceed as outlined above. I have seen and examined the patient for 25 minutes and we have spent more than 50% of the time in repeat and detailed counseling about the patient's condition, its natural course history with out and as much as can be predicted with surgery and re-review of various surgical treatment options. In conclusion, James Marte and family at bedside including his requested we proceed with the above suggested surgery and are willing to accept risks and limitations of the suggested surgery as nature of the disease process and our best attempts at treatment for the condition. Thank you again for allowing us to be part of your patient's care. Please don't hesitate to contact me if you have any further questions. Signed and authenticated by: Delbert Trivedi [facility] [address] [place] [address]
[2023-05-27] MEDS ORDERED: fentaNYL (PF) 50 MCG/ML 2 ML AMP ONE (11:13)
[2023-05-27] MEDS ORDERED: KETAMINE HCL IN 0.9 % NACL 50 MG/5 ML SYRINGE ONE (11:13)
[2023-05-27] MEDS ORDERED: MIDAZOLAM 2 MG/2 ML VIAL ONE (11:13)
[2023-05-27] MEDS ORDERED: IV FLUID CONTINUATION 1,000 ML IV ONE (11:20)
[2023-05-27] MEDS ORDERED: SODIUM CHLORIDE 0.9% 100 ML with ceFAZolin 2,000 MG IV ONE ×2 (11:20)
[2023-05-27] MEDS ORDERED: NALOXONE 0.4 MG/ML 1 ML VIAL IV PRN (11:21)
[2023-05-27] MEDS ORDERED: MAGNESIUM HYDROXIDE 2,400 MG/30 ML CUP PO PRN (11:21)
[2023-05-27] MEDS ORDERED: TRANEXAMIC 1,000 MG/100ML-NACL 1,000 MG in SALINE 1 100ML.BAG IVPB PRN (11:23)
--- NOTE | 2023-05-27 12:20 | P.OP ---
Date of Procedure: 05/27/23 Preoperative Diagnosis: 1. RIGHT IT FRACTURE, 3 PART UNSTABLE 2. S/P FFS Postoperative Diagnosis: 1. RIGHT IT FRACTURE, 3 PART UNSTABLE 2. S/P FFS Procedure(s) Performed: 1. RIGHT HIP INTRAMEDULLARY NAIL FIXATION Implants: [employer] intertan short 125 deg 11 mm Anesthesia: MAC, spinal Surgeon: Delbert Stubbs Logistics Clerk #1: Naman Fitch (ZOEY Foley Was present and assisted with all aspects of the case from positioning to dressing placement) Estimated Blood Loss (ml): 50 IV fluids (ml): 1,200 Urine output (ml): 250 Pathology: none sent Indications for Procedure: James Marte is a 88-year-old male presenting for evaluation of sudden onset right hip pain, inability to ambulate after fall from standing at home in the bathroom. It was my pleasure to have seen and examined James Marte. In our visit today we have had a chance to go over subjective complaints, physical examination findings and treatments including the natural course history without intervention and various interventional options. His imaging demonstrates right intertrochanteric fracture with subtrochanteric extension. On physical exam, James Marte demonstrates pain with motion of right lower extremity, which is NV intact at this time. I have explained to the patient that this fracture needs stabilization. Based on the patients imaging, physical exam, and the rapid progression and disabling nature of her symptoms, at this time I recommend surgery in the form or a: intramedullary nail fixation of right hip I discussed the risk and benefits of this procedure at length with James Matre and family at bedside including . Questions were invited and answered, and the patient wishes to proceed as outlined below. Currently, I am recommendin. intramedullary nail fixation right hip Description of Procedure: Right hip short IMN The patient was seen and examined in the preoperative area. All preoperative protocols were followed. Informed consent was obtained risks and benefits of the procedure were discussed at length. Risks including bleeding infection damage to the surrounding tissue and risk of reoperation were discussed with the patient. Risk of anesthesia up to and including was a discussed with the patient. These are outlined in the risk reviewed. They were willing to accept these risks and all of the risks of surgery. The patient was given a weight-based dose of antibiotics in the form of 2 g Ancef. The patient was seen and evaluated by the anesthesia team who deemed them fit for surgery. The site was marked, the patient was willing to proceed with the procedure. The patient was transferred to the operative suite by the Department of anesthesia. There were then drifted off to sleep by the department of anesthesia andGETA anesthesia was used. Once adequate anesthesia had been obtained the patient was carefully transferred to the operative bed. All bony prominences were padded accordingly. SCDs were placed on the nonoperative lower extremities. Arms were well padded. the patient was transferred to the Radha table and her right leg was placed in a Radha boot and secured to the table left leg was placed in a well-leg rhodes well padded and secured. The post was placed and she was secured appropriately. arms were placed on arm boards and well-padded Preoperative briefing was done with the operative team and everyone was ready for the procedure to start. Xray used to reduce the fracture with Radha table. The patients right leg was then prepped and draped in the normal sterile fashion. Timeout was then performed and all parties in agreement with the procedure to be performed. X-ray was then used to meliza 2 cm proximal to the GT. Skin incision made in line with the femur and blunt dissection taken down to the deep facia which was split. Blut dissetion then taken down to the tip of the GT and the sharp awl used. Optimal starting point achieved on AP and Lateral imaging. Awl was then advaced into the proximal femur. Ball tip guidewire was then passed into the femur. It was confirmed on Ap and laterl. Opening reamer then passed followed by 9, 11 and 13 mm reamers. Then the nail was selected and impacted into place over the wire using flouroscopic guidance. Once in position the lateral guide was placed and skin incisoin made in line with the femur over the lateral aspect. Dissection taken down through the tensor facia which was split inline with its fibers. The guide was seated against bone. Pin was placed through guide for the lag screw to be with in 10mm on Ap and lateral of the subchondarl bone. This was then measured. Appropriate sized compression screw then selected and drilled. Then the lag screw drilled. Lag screw placed over the wire followed by the compression screw. About 7 mm of compression was achieved. Good alignment in AP and lateral shown. The nail was then locked proximally. Distal locking screw was then placed through the jig using similar technique. Screw was drilled and measured and placed. AP and lateral confirmed good placement and good fracture reduction as well as stability in ROM. The guid was then removed from the nail. The wound was then copiously irrigated with normal sterile saline final AP and lateral fluoroscopic imaging confirmed good placement of pins as well as reduction of fracture. The deep fascia was then closed with 0 Vicryl superficial closed 2-0 Vicryl and skin closed with skin jeniffer the wound edges approximated very well. The wound was then cleaned and dressed with an optifoam dressing. The patient was then transferred back to their hospital bed. There were awakened by department of anesthesia having tolerated the procedure very well with no complications. The patient was then transported to the postoperative care unit in stable condition.
--- NOTE | 2023-05-27 12:36 | XR ---
Intraoperative fluoroscopy and spot films were fixation of right hip fracture. 46 seconds of fluoroscopy and 5 spot films were obtained demonstrating fixation of an intertrochanter ic fracture of the right hip with intramedullary thalia in the proximal femur and transfemoral neck scre ws.. IMPRESSION: Satisfactory fixation of a intertrochanteric fracture the right hip with near anatomic alignment.
--- NOTE | 2023-05-27 12:38 | P.PN ---
Subjective Progress Note Date: 05/27/23 patient is a 88-year-old gentleman with past medical history significant for hypertension, diabetes mellitus, atrial fibrillation on Coumadin who presented to the hospital because of a fall. Patient apparently woke up this morning to use the restroom when he tripped and fell landing on his right side. Patient denies losing consciousness. Denies hitting his head. Patient was complaining of pain in his right hip and was not able to get up on his own, patient was brought to the ER. Initial lab work done in the ER showed WBC 12.8, hemoglobin 13.9, platelet count 136, sodium 134, potassium 3.8, BUN 25, creatinine 1.2 X-ray of the right hip does demonstrate right hip IT fracture Patient was admitted to orthopedics service 05/27. Patient seen and examined. Currently nothing by mouth, going for surgery today. Right hip pain REVIEW OF SYSTEMS: CONSTITUTIONAL: No fever, no malaise,. CARDIOVASCULAR: No chest pain, no palpitations, no syncope. PULMONARY: No shortness of breath, no cough, GASTROINTESTINAL: No diarrhea, no nausea, no vomiting, no abdominal pain. NEUROLOGICAL: No headaches, no weakness, PHYSICAL EXAMINATION: GENERAL: The patient is alert and oriented x3, not in any acute distress. Well developed, well nourished. HEENT: Pupils are round and equally reacting to light. EOMI. No scleral icterus. No conjunctival pallor. Normocephalic, atraumatic. No pharyngeal erythema. No thyromegaly. CARDIOVASCULAR: S1 and S2 present. No murmurs, rubs, or gallops. PULMONARY: Chest is clear to auscultation, no wheezing or crackles. ABDOMEN: Soft, nontender, nondistended, normoactive bowel sounds. No palpable organomegaly. MUSCULOSKELETAL: Right leg externally rotated EXTREMITIES: No cyanosis, clubbing, or pedal edema. NEUROLOGICAL: Gross neurological examination did not reveal any focal deficits. SKIN: No rashes. Assessment and plan Right hip fracture Hypertension Hge-gwpuezc-jcregnxuj diabetes mellitus Monitor vital signs Monitor CBC Monitor CMP Fall precautions Continue pain management per orthopedics Hold Coumadin for now Continue Norvasc, atenolol, lisinopril Monitor blood sugar levels, Continue sliding scale insulin Cardiology consulted , cleared patient for surgery Patient is medically cleared , patient has moderate risk for complications Currently nothing by mouth, going for surgery today Labs and medication were reviewed.. Continue same treatment. Continue with symptomatic treatment. Resume home medication. Monitor labs and vitals. DVT and GI prophylaxis. Further recommendations as per clinical course of the patient Dictation was produced using [employer] dictation software. please excuse any grammatical, word or spelling errors. Objective - Vital Signs Vital signs: Vital Signs Temp 98.2 F 05/27/23 07:19 Pulse 65 05/27/23 09:32 Resp 18 05/27/23 07:19 BP 157/71 05/27/23 09:32 Pulse Ox 96 05/27/23 07:19 FiO2 Intake & Output 05/26/23 05/27/23 05/27/23 18:59 06:59 18:59 Output Total 1140 500 Balance -1140 -500 Weight 81.647 kg Output: Urine 1140 500 Other: Voiding Method Indwelling Catheter - Labs CBC & Chem 7: 05/26/23 08:54 05/26/23 08:54 Labs: Abnormal Lab Results - Last 24 Hours (Table) 05/26/23 05/26/23 05/26/23 Range/Units 08:54 14:45 15:15 PT 12.4 H (9.0-12.0) sec INR 1.2 H (<1.2) APTT 19.8 L (22.0-30.0) sec POC Glucose (mg/dL) 384 H (70-110) mg/dL Creatine Kinase (55-170) U/L Troponin I 0.066 H* (0.000-0.034) ng/mL 05/26/23 05/26/23 05/26/23 Range/Units 16:29 16:54 19:10 PT (9.0-12.0) sec INR (<1.2) APTT (22.0-30.0) sec POC Glucose (mg/dL) 345 H (70-110) mg/dL Creatine Kinase 233 H (55-170) U/L Troponin I 0.069 H* (0.000-0.034) ng/mL 05/26/23 05/26/23 05/27/23 Range/Units 19:40 21:53 06:07 PT (9.0-12.0) sec INR (<1.2) APTT (22.0-30.0) sec POC Glucose (mg/dL) 315 H 238 H 213 H (70-110) mg/dL Creatine Kinase (55-170) U/L Troponin I (0.000-0.034) ng/mL
[2023-05-27 13:50] LABS: Glucose,Whole Blood 178 mg/dL (70-110)
--- NOTE | 2023-05-27 15:37 | P.CRDCN ---
History of Present Illness Consult date: 05/27/23 Consult reason: pre-op evaluation History of present illness: This is Rogelio Barajas NP, I'm dictating on behalf of Dr. Royal's H&P and A&P The patient was interviewed and examined. HPI: Patient is a pleasant 88-year-old male who has a past medical history that includes diabetes mellitus, hypertension, osteoarthritis, who [facility]. Patient reports that he was at home standing in the kitchen, when he just felt himself starting to fall. Patient reports that he was unable to catch himself, and reports that he did not lose consciousness during this episode. Patient did fall and obtain a right IT fracture. This was discovered after presentation to the emergency department on imaging. Patient had an EKG completed which does show ventricular pacing. Patient does have a history of complete heart block with a dual-chamber pacemaker. We have been consulted for surgical clearance. ROS: [No fever, chills, or rigors] [no cough, phlegm, or expectoration] [no nausea, vomiting, or diarrhea] [no hematuria, dysuria] [Right hip pain with movement] [no strokes or seizures] [no skin lesions] EXAMINATION: GENERAL: Well-appearing, well-nourished and in no acute distress. NECK: Supple without JVD or thyromegaly. LUNGS: Breath sounds clear to auscultation bilaterally. Respiration equal and unlabored. No wheezes, rales or rhonchi. HEART: Regular rate and rhythm without murmurs, rubs or gallops. S1 and S2 heard. EXTREMITIES: Pain with movement in the right hip, no edema. No clubbing or cyanosis. Peripheral pulses intact and strong. REVIEW OF LABS, ECG & MEDICAL DATA: LABS: White count 12.8, hemoglobin 13.9, platelet 136, sodium 134, potassium 3.8, chloride 95, BUN 25, creatinine 1.2, calcium 9.3, crit and kinase 233, troponin 0.066, 0.069, BNP 5280 EKG: Ventricular paced rhythm IMAGING:CT of the brain with C-spine dated 05/26/2023 demonstrates no acute trauma to the head or neck, no acute bleed or mass effect, no acute trauma to the cervical spine but significant degenerative disc disease and osteoarthritic changes as described above. X-ray of the right hip and AP pelvis dated 04/29 demonstrates displaced intertrochanteric fracture of the right hip, no pelvic fracture. Chest x-ray dated 05/26/2023 demonstrates no acute cardiopulmonary disease, no evidence of acute trauma. X-ray of the right femur dated 05/26/2023 redemonstrates a displaced intertrochanteric fracture of the right femur. Limited x-ray of the right hip dated 05/27/2023 demonstrates satisfactory fixation of a intertrochanteric fracture of the right hip with near anatomic alignment. VITALS: IMPRESSION: 1. S/P fall with right IT fracture 2. Complete Heart Block, dual chamber pacemaker 3. Rhabdomyolysis post fall 4. Elevated troponin secondary to rhabdomyolysis PLAN: Start Atorvastatin 40mg daily, give first dose stat. Cleared for IT fracture repair. Place magnet over pacemaker during procedure to ensure continued pacing. Continue home cardiac medications. Resume warfarin after surgery. No further recommendations from a cardiology standpoint. Thank you for the consult and allowing us to participate in the care of this patient. Past Medical History Past Medical History: Diabetes Mellitus, Hypertension, Osteoarthritis (OA) Additional Past Medical History / Comment(s): hiatal hernia, History of Any Multi-Drug Resistant Organisms: None Reported Past Surgical History: Pacemaker Additional Past Surgical History / Comment(s): saeid cataracts Past Anesthesia/Blood Transfusion Reactions: No Reported Reaction Type of Cardiac Device: Permanent Pacemaker Device Placement Date:: 2007 Past Psychological History: No Psychological Hx Reported Smoking Status: Former smoker Past Alcohol Use History: None Reported Additional Past Alcohol Use History / Comment(s): quit smoking 50 yrs, smoked for 15 yrs- mostly pipe or cigar Past Drug Use History: None Reported - Past Family History Mother Family Medical History: Cancer Father Family Medical History: Cancer Medications and Allergies Home Medications Medication Instructions Recorded Confirmed Type Glimepiride [Amaryl] 2 mg PO DAILY 03/15/16 05/26/23 History Pioglitazone [Actos] 15 mg PO DAILY 03/15/16 05/26/23 History Warfarin [Coumadin] 5 mg PO DAILY 03/15/16 05/26/23 History amLODIPine [Norvasc] 5 mg PO DAILY 03/15/16 05/26/23 History atenoloL [Tenormin] 25 mg PO DAILY 03/15/16 05/26/23 History hydrALAZINE HCL [Apresoline] 50 mg PO TID 03/15/16 05/26/23 History hydroCHLOROthiazide [Hydrodiuril] 25 mg PO DAILY 03/15/16 05/26/23 History lisinopriL [Zestril] 20 mg PO BID 03/15/16 05/26/23 History metFORMIN HCL [Glucophage] 1,000 mg PO BID 05/26/23 05/26/23 History Allergies Allergy/AdvReac Type Severity Reaction Status Date / Time No Known Allergies Allergy Verified 05/26/23 12:07 Physical Exam Vitals: Vital Signs Temp Pulse Pulse Resp BP BP Pulse Ox 05/27/23 07:19 98.2 F 96 18 129/71 96 05/27/23 02:00 98.9 F 65 18 132/66 96 05/26/23 21:56 67 141/70 05/26/23 20:00 98.9 F 55 L 18 146/79 94 L 05/26/23 15:40 98.1 F 60 20 176/82 96 05/26/23 12:00 104 H 18 160/74 93 L 05/26/23 11:36 60 18 160/74 91 L 05/26/23 11:00 59 L 18 160/74 98 05/26/23 10:00 62 18 158/68 98 05/26/23 08:40 98.2 F 59 L 22 189/88 99 Intake and Output 05/26/23 05/27/23 05/27/23 22:59 06:59 14:59 Output Total 1140 500 Balance -1140 -500 Output: Urine 1140 500 Other: Voiding Method Indwelling Catheter Weight 81.647 kg Results 05/26/23 08:54 05/26/23 08:54 Cardiac Enzymes 05/26/23 05/26/23 05/26/23 Range/Units 08:54 15:15 19:10 AST 43 (17-59) U/L Troponin I 0.066 H* 0.069 H* (0.000-0.034) ng/mL Coagulation 05/26/23 Range/Units 08:54 PT 12.4 H (9.0-12.0) sec APTT 19.8 L (22.0-30.0) sec CBC 05/26/23 Range/Units 08:54 WBC 12.8 H (3.8-10.6) k/uL RBC 4.46 (4.30-5.90) m/uL Hgb 13.9 (13.0-17.5) gm/dL Hct 41.8 (39.0-53.0) % Plt Count 136 L (150-450) k/uL Comprehensive Metabolic Panel 05/26/23 Range/Units 08:54 Sodium 134 L (137-145) mmol/L Potassium 3.8 (3.5-5.1) mmol/L Chloride 95 L (98-107) mmol/L Carbon Dioxide 18 L (22-30) mmol/L BUN 25 H (9-20) mg/dL Creatinine 1.20 (0.66-1.25) mg/dL Glucose 402 H (74-99) mg/dL Calcium 9.3 (8.4-10.2) mg/dL AST 43 (17-59) U/L ALT 31 (4-49) U/L Alkaline Phosphatase 96 (38-126) U/L Total Protein 7.1 (6.3-8.2) g/dL Albumin 4.1 (3.5-5.0) g/dL Current Medications Generic Name Dose Route Start Last Admin Trade Name Freq PRN Reason Stop Dose Admin Acetaminophen 650 mg 05/26/23 12:26 Acetaminophen Tab 325 Mg Tab PO Q6HR PRN Fever and/ or Pain Hydrocodone Bitart/Acetaminophen 1 each 05/26/23 10:55 05/26/23 15:38 Hydrocodone/Apap 5-325mg 1 Each Tab PO 1 each Q4HR PRN Administration Moderate Pain (Scale 4 to 6) Amlodipine Besylate 5 mg 05/27/23 09:00 Amlodipine 5 Mg Tab PO DAILY [facility] Atenolol 25 mg 05/27/23 09:00 Atenolol 25 Mg Tab PO DAILY [facility] Atorvastatin Calcium 40 mg 05/27/23 09:00 Atorvastatin 40 Mg Tab PO DAILY [facility] Dextrose/Water 25 ml 05/26/23 14:39 Dextrose 50% Syringe 50 Ml IVP PER PROTOCOL PRN Hypoglycemia Protocol Dextrose/Water 50 ml 05/26/23 14:39 Dextrose 50% Syringe 50 Ml IVP PER PROTOCOL PRN Hypoglycemia Protocol Hydralazine HCl 50 mg 05/26/23 16:00 05/26/23 21:59 Hydralazine Hcl 50 Mg Tab PO 50 mg TID [facility] Administration Hydromorphone HCl 0.5 mg 05/26/23 10:55 05/27/23 06:13 Hydromorphone 0.5 Mg/0.5 Ml Syringe IVP 0.5 mg Q3HR PRN Administration Moderate Pain (Scale 4 to 6) Insulin Aspart 0 unit 05/26/23 17:30 05/27/23 06:14 Insulin Aspart (Novolog) 100 Unit/Ml Vial SQ 100 unit ACHS [facility] Administration Protocol Lisinopril 20 mg 05/26/23 21:00 05/26/23 21:59 Lisinopril 20 Mg Tab PO 20 mg BID [facility] Administration Naloxone HCl 0.2 mg 05/26/23 10:55 Naloxone 0.4 Mg/Ml 1 Ml Vial IV Q2M PRN Opioid Reversal Ondansetron HCl 4 mg 05/26/23 10:55 Ondansetron 4 Mg/2 Ml Vial IVP Q8HR PRN Nausea And Vomiting Senna 8.6 mg 05/27/23 09:00 Sennosides 8.6 Mg Tab PO DAILY [facility] Intake and Output 05/26/23 05/27/23 05/27/23 22:59 06:59 14:59 Output Total 1140 500 Balance -1140 -500 Output: Urine 1140 500 Other: Voiding Method Indwelling Catheter Weight 81.647 kg 05/26/23 08:54 05/26/23 08:54
[2023-05-27] MEDS: SODIUM CHLORIDE 0.9% 1,000 ML IV SCH (16:22)
[2023-05-27 16:49] LABS: Glucose,Whole Blood 223 mg/dL (70-110)
[2023-05-27 20:28] LABS: Glucose,Whole Blood 239 mg/dL (70-110)
[2023-05-27] MEDS: SENNOSIDES-DOCUSATE SODIUM 1 EACH TAB PO SCH (21:03)
[2023-05-28] MEDS: SODIUM CHLORIDE 0.9% 1,000 ML IV SCH ×2 (04:17→17:43)
[2023-05-28] MEDS: HYDROcodone/APAP 5-325MG 1 EACH TAB PO PRN ×3 (04:31→20:43)
[2023-05-28] MEDS: HYDROmorphone 0.5 MG/0.5 ML SYRINGE IVP PRN ×3 (05:57→18:19)
[2023-05-28 06:02] LABS: Glucose,Whole Blood 227 mg/dL (70-110)
[2023-05-28] MEDS: INSULIN ASPART (NovoLOG) 100 UNIT/ML VIAL SQ SCH ×4 (06:36→20:42)
[2023-05-28] MEDS: ATORVASTATIN 40 MG TAB PO SCH (08:39)
[2023-05-28] MEDS: hydrALAZINE HCL 50 MG TAB PO SCH ×3 (08:39→20:42)
[2023-05-28] MEDS: atenoloL 25 MG TAB PO SCH (08:39)
[2023-05-28] MEDS: amLODIPine 5 MG TAB PO SCH (08:39)
[2023-05-28] MEDS: SENNOSIDES 8.6 MG TAB PO SCH (08:39)
[2023-05-28] MEDS: lisinopriL 20 MG TAB PO SCH ×2 (08:39→20:42)
--- NOTE | 2023-05-28 09:26 | P.PN ---
Subjective Progress Note Date: 05/28/23 HPI: Patient is a pleasant 88-year-old male who has a past medical history that includes diabetes mellitus, hypertension, osteoarthritis, who presented to the hospital after a fall. Patient reports that he was at home standing in the kitchen, when he just felt himself starting to fall. Patient reports that he was unable to catch himself, and reports that he did not lose consciousness during this episode. Patient did fall and obtain a right IT fracture. This was discovered after presentation to the emergency department on imaging. Patient had an EKG completed which does show ventricular pacing. Patient does have a history of complete heart block with a dual-chamber pacemaker. We have been co nsulted for surgical clearance. REVIEW OF LABS, ECG & MEDICAL DATA: LABS: White count 12.8, hemoglobin 13.9, platelet 136, sodium 134, potassium 3.8, chloride 95, BUN 25, creatinine 1.2, calcium 9.3, crit and kinase 233, troponin 0.066, 0.069, BNP 5280 EKG: Ventricular paced rhythm IMAGING:CT of the brain with C-spine dated 05/26/2023 demonstrates no acute trauma to the head or neck, no acute bleed or mass effect, no acute trauma to the cervical spine but significant degenerative disc disease and osteoarthritic changes as described above. X-ray of the right hip and AP pelvis dated 05/26/20 demonstrates displaced intertrochanteric fracture of the right hip, no pelvic fracture. Chest x-ray dated 05/26/2023 demonstrates no acute cardiopulmonary disease, no evidence of acute trauma. X-ray of the right femur dated 05/26/2023 redemonstrates a displaced intertrochanteric fracture of the right femur. Limited x-ray of the right hip dated 05/27/2023 demonstrates satisfactory fixation of a intertrochanteric fracture of the right hip with near anatomic alignment. 05/28 Patient is seen today in follow-up.heart rate is running in the 60s at the time of exam, blood pressure 138/78, pulse ox 94% on 3 L nasal cannula. Additional lab work reveals hemoglobin A1c is 11.9. EXAMINATION: GENERAL: Well-appearing, well-nourished and in no acute distress. NECK: Supple without JVD or thyromegaly. LUNGS: Breath sounds clear to auscultation bilaterally. Respiration equal and unlabored. No wheezes, rales or rhonchi. HEART: Regular rate and rhythm without murmurs, rubs or gallops. S1 and S2 heard. EXTREMITIES: Pain with movement in the right hip, no edema. No clubbing or cyanosis. Peripheral pulses intact and strong. IMPRESSION: 1. S/P fall with right IT fracture 2. Complete Heart Block, dual chamber pacemaker 3. Rhabdomyolysis post fall 4. Elevated troponin secondary to rhabdomyolysis PLAN: Continue Atorvastatin 40mg daily Continue home cardiac medications. Resume warfarin after surgery once cleared by orthopedics. No further recommendations from a cardiology standpoint. Thank you for the consult and allowing us to participate in the care of this patient. Objective - Vital Signs Vital signs: Vital Signs Temp 97.6 F 05/28/23 07:00 Pulse 45 L 05/28/23 07:00 Resp 17 05/28/23 07:00 BP 127/68 05/28/23 07:00 Pulse Ox 94 L 05/28/23 07:00 FiO2 Intake & Output 05/27/23 05/28/23 05/28/23 18:59 06:59 18:59 Intake Total 1000 Output Total 850 400 Balance 150 -400 Weight 81.647 kg Intake: IV 700 Intake, IV Titration 300 Amount Sodium Chloride 0.9% 1, 300 000 ml @ 75 mls/hr IV . [id number] [facility] Rx#:[id number] Output: Urine 800 400 Estimated Blood Loss 50 Other: Voiding Method Indwelling Catheter Indwelling Catheter # Bowel Movements 2 - Labs CBC & Chem 7: 05/26/23 08:54 05/26/23 08:54 Labs: Abnormal Lab Results - Last 24 Hours (Table) 05/27/23 05/27/23 05/27/23 Range/Units 06:08 13:45 16:44 POC Glucose (mg/dL) 178 H 223 H (70-110) mg/dL Hemoglobin A1c 11.9 H (<=6.0) % 05/27/23 05/28/23 Range/Units 20:24 05:51 POC Glucose (mg/dL) 239 H 227 H (70-110) mg/dL Hemoglobin A1c (<=6.0) %
--- NOTE | 2023-05-28 10:03 | P.PN ---
Subjective Progress Note Date: 05/28/23 Principal diagnosis: Right hip IT fracture Patient seen at bedside this morning lying semirecumbent position eating breakfast. Patient says he is having fair amount of pain to the right hip at this time. Patient says he has not been up walking since surgery was performed yesterday. Patient does have harrington in place. Patient is looking forward to working with therapy later this morning. Patient says he has not had bowel movement yet, however, patient says he has been passing gas. Patient denies any other issues at this time. Patient denies chest pain, fever, shortness breath, nausea, vomiting, change in vision, loss/bladder control. Objective - Vital Signs Vital signs: Vital Signs Temp 97.6 F 05/28/23 07:00 Pulse 61 05/28/23 08:44 Resp 17 05/28/23 07:00 BP 138/78 05/28/23 08:44 Pulse Ox 94 L 05/28/23 07:00 FiO2 Intake & Output 05/27/23 05/28/23 05/28/23 18:59 06:59 18:59 Intake Total 1000 Output Total 850 400 Balance 150 -400 Weight 81.647 kg Intake: IV 700 Intake, IV Titration 300 Amount Sodium Chloride 0.9% 1, 300 000 ml @ 75 mls/hr IV . [id number] [facility] Rx#:[id number] Output: Urine 800 400 Estimated Blood Loss 50 Other: Voiding Method Indwelling Catheter Indwelling Catheter # Bowel Movements 2 - Exam Inspection: Surgical dressing present over right lateral hip. Incision appears to be clean, dry, intact. Negative for any active drainage. Negative for erythema/open fractures. Sensation: Equal, symmetric, bilaterally intact at the upper and lower extremities on exam. Palpation: Fair amount of tenderness to palpation throughout right hip on exam. Nontender to palpation throughout rest of exam Range of motion: Patient has full range of motion bilateral upper extremities on exam. There is limited range of motion in the right hip and knee flexion/extension secondary to referred pain to the right hip.. Patient has full range of motion left lower extremity exam Motor: 4/5 in all major motor groups left lower extremity and bilateral upper extremities. 3+/5 in resisted right hip flexion extension, right knee flexion extension. 4-/5 in resisted right ankle dorsi/plantar flexion. Neurovascular: Radial pulses intact, 2+ bilaterally. DP pulse intact bilaterally. Cap refill under 3 seconds in digits upper extremities. Special tests: Negative Homans bilaterally. Negative clonus bilaterally. Negative Reynaldo - Labs CBC & Chem 7: 05/26/23 08:54 05/26/23 08:54 Labs: Abnormal Lab Results - Last 24 Hours (Table) 05/27/23 05/27/23 05/27/23 Range/Units 06:08 13:45 16:44 POC Glucose (mg/dL) 178 H 223 H (70-110) mg/dL Hemoglobin A1c 11.9 H (<=6.0) % 05/27/23 05/28/23 Range/Units 20:24 05:51 POC Glucose (mg/dL) 239 H 227 H (70-110) mg/dL Hemoglobin A1c (<=6.0) % Assessment and Plan Assessment: 1. Right hip IT fracture status post fall - Postop day 1 status post right hip IM nail Plan: 1. Right hip IT fracture - patient stable at bedside this morning. Pain medication as needed. Begin Lovenox for DVT prophylaxis today. PT/OT daily. Incision is clean, dry, intact. Plan for discharge to rehab when bed is available. We'll continue to follow patient for a standard hospital. 2. Appreciate medical and cardio management 3. Pain management - Tylenol; [place] 4. DVT prophylaxis - lovenox 5. GI prophylaxis - senna 6. PT/OT - nonweightbearing right lower extremity 7. Encourage incentive spirometer use 8. Discharge planning - plan for discharge to rehab when bed available. Time with Patient: Less than 30
[2023-05-28 11:31] LABS: Glucose,Whole Blood 390 mg/dL (70-110)
[2023-05-28] MEDS: ENOXAPARIN 40 MG/0.4 ML SYRINGE SQ SCH (12:19)
[2023-05-28 12:48] VITALS: BMI 26.6
[2023-05-28] MEDS ORDERED: IPRATROPIUM-ALBUTEROL 3 ML NEB INHALATION PRN (14:03)
--- NOTE | 2023-05-28 15:31 | P.PN ---
Subjective Progress Note Date: 05/28/23 This is an 88-year-old gentleman admitted with a right hip IT fracture status post fall, postop day 1 right hip IM Nail. Reports no pain at rest, positive pain with movement. Positive diet intake, passing flatus, no bowel movement. Blood sugars uncontrolled, in the 200s. Afebrile. Heart rate currently in the 60s. Oxygen requirements increased up to 3 L nasal cannula to maintain O2 sats in the mid 90s. Afebrile. Objective - Vital Signs Vital signs: Vital Signs Temp 97.6 F 05/28/23 07:00 Pulse 45 L 05/28/23 09:32 Resp 17 05/28/23 09:32 BP 138/78 05/28/23 08:44 Pulse Ox 94 L 05/28/23 07:00 FiO2 Intake & Output 05/27/23 05/28/23 05/28/23 18:59 06:59 18:59 Intake Total 1000 Output Total 850 400 400 Balance 150 -400 -400 Weight 81.647 kg 81.647 kg Intake: IV 700 Intake, IV Titration 300 Amount Sodium Chloride 0.9% 1, 300 000 ml @ 75 mls/hr IV . [id number] [facility] Rx#:[id number] Output: Urine 800 400 400 Estimated Blood Loss 50 Other: Voiding Method Indwelling Catheter Indwelling Catheter Indwelling Catheter # Bowel Movements 2 1 - Exam PHYSICAL EXAM: VITAL SIGNS: [As above] GENERAL: Sitting up in bed, no acute distress HEENT: Normocephalic, Conjunctivae normal. eyes normal. NECK: No JVD. No thyroid enlargement. No LNs CARDIOVASCULAR: S1, S2 regular.. No murmur RESPIRATION: Unlabored, Breath sounds diminished in the bases. No rhonchi or crackles. No bronchial breathing. ABDOMEN: Soft, nontender . No guarding. no masses palpable. No ascites, No hepatosplenomegaly.Bowel sounds heard. LEGS: Right lower extremity dressings clean dry and intact. No edema. no sw elling , no clubbing, no cyanosis, positive DP pulse. PSYCHIATRY: Alert and oriented X3, mood and affect normal. NERVOUS SYSTEM: Cranial N 2-12 grossly normal.No focal deficits.Strength and sensation grossly intact. Skin: Warm and dry, no rash. - Labs CBC & Chem 7: 05/26/23 08:54 05/26/23 08:54 Labs: Abnormal Lab Results - Last 24 Hours (Table) 05/27/23 05/27/23 05/27/23 Range/Units 06:08 16:44 20:24 POC Glucose (mg/dL) 223 H 239 H (70-110) mg/dL Hemoglobin A1c 11.9 H (<=6.0) % 05/28/23 05/28/23 Range/Units 05:51 11:30 POC Glucose (mg/dL) 227 H 390 H (70-110) mg/dL Hemoglobin A1c (<=6.0) % Assessment and Plan Assessment: Right hip IT fracture status post fall, postop day 1 right hip IM Nail. Rhabdomyolysis status post fall Elevated troponin secondary to the above Postoperative atelectasis, expected outcome Acute hypoxic respiratory failure secondary to the above Diabetes mellitus, uncontrolled, hemoglobin A1c 11.9 ,hyperglycemic, further diabetic teaching outpatient in clinic with PCP. 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 COPD Prior nicotine dependence Plan: Continue on current medication regime ,monitoring and symptomatic treatment. Aggressive pulmonary toileting with incentive spirometer reinforced. Nebulized bronchodilators and Symbicort added to med regimen. Lantus added to med regimen for uncontrolled blood sugars. Close monitoring of blood sugars. Elevated A1c of 11.9 and patient will require further diabetic teaching outpatient in clinic. Pain management/DVT prophylaxis as per primary.PT. The impression and plan of care has been dictated as directed. : I performed a history and examination of this patient, discussed the same with the dictator. I agree with the dictator's note ,documented as a scribe. Any additional findings or plans will be noted.
[2023-05-28] MEDS: SYMBICORT 80-4.5 MCG INHALER INHALATION SCH ×2 (15:43→21:37)
[2023-05-28] MEDS: INSULIN DETEMIR (LEVEMIR) 100 UNIT/ML SYR SQ SCH (15:43)
[2023-05-28] MEDS: IPRATROPIUM-ALBUTEROL 3 ML NEB INHALATION SCH ×2 (15:44→21:37)
[2023-05-28 17:11] LABS: Glucose,Whole Blood 371 mg/dL (70-110)
[2023-05-28 20:01] LABS: Glucose,Whole Blood 389 mg/dL (70-110)
[2023-05-28] MEDS: SENNOSIDES-DOCUSATE SODIUM 1 EACH TAB PO SCH (20:42)
[2023-05-29] MEDS: HYDROmorphone 0.5 MG/0.5 ML SYRINGE IVP PRN ×3 (04:41→14:04)
[2023-05-29 05:57] LABS: Glucose,Whole Blood 126 mg/dL (70-110)
[2023-05-29] MEDS: INSULIN ASPART (NovoLOG) 100 UNIT/ML VIAL SQ SCH ×4 (06:06→21:17)
[2023-05-29] MEDS: SODIUM CHLORIDE 0.9% 1,000 ML IV SCH ×2 (06:24→21:00)
[2023-05-29] MEDS: HYDROcodone/APAP 5-325MG 1 EACH TAB PO PRN (06:35)
[2023-05-29] MEDS: lisinopriL 20 MG TAB PO SCH ×2 (08:05→21:17)
[2023-05-29] MEDS: atenoloL 25 MG TAB PO SCH (08:05)
[2023-05-29] MEDS: ATORVASTATIN 40 MG TAB PO SCH (08:05)
[2023-05-29] MEDS: hydrALAZINE HCL 50 MG TAB PO SCH ×3 (08:05→21:17)
[2023-05-29] MEDS: amLODIPine 5 MG TAB PO SCH (08:05)
[2023-05-29] MEDS: SENNOSIDES 8.6 MG TAB PO SCH (08:05)
[2023-05-29] MEDS: ENOXAPARIN 40 MG/0.4 ML SYRINGE SQ SCH (08:05)
[2023-05-29] MEDS: SYMBICORT 80-4.5 MCG INHALER INHALATION SCH ×2 (08:33→20:48)
[2023-05-29] MEDS: IPRATROPIUM-ALBUTEROL 3 ML NEB INHALATION SCH ×4 (08:33→20:48)
[2023-05-29] MEDS: INSULIN DETEMIR (LEVEMIR) 100 UNIT/ML SYR SQ SCH (08:45)
--- NOTE | 2023-05-29 08:52 | P.PN ---
Subjective Progress Note Date: 05/29/23 HPI: Patient is a pleasant 88-year-old male who has a past medical history that includes diabetes mellitus, hypertension, osteoarthritis, who presented to the hospital after a fall. Patient reports that he was at home standing in the kitchen, when he just felt himself starting to fall. Patient reports that he was unable to catch himself, and reports that he did not lose consciousness during this episode. Patient did fall and obtain a right IT fracture. This was discovered after presentation to the emergency department on imaging. Patient had an EKG completed which does show ventricular pacing. Patient does have a history of complete heart block with a dual-chamber pacemaker. We have been co nsulted for surgical clearance. REVIEW OF LABS, ECG & MEDICAL DATA: LABS: White count 12.8, hemoglobin 13.9, platelet 136, sodium 134, potassium 3.8, chloride 95, BUN 25, creatinine 1.2, calcium 9.3, crit and kinase 233, troponin 0.066, 0.069, BNP 5280 EKG: Ventricular paced rhythm IMAGING:CT of the brain with C-spine dated 05/26/2023 demonstrates no acute trauma to the head or neck, no acute bleed or mass effect, no acute trauma to the cervical spine but significant degenerative disc disease and osteoarthritic changes as described above. X-ray of the right hip and AP pelvis dated 05/26/20 demonstrates displaced intertrochanteric fracture of the right hip, no pelvic fracture. Chest x-ray dated 05/26/2023 demonstrates no acute cardiopulmonary disease, no evidence of acute trauma. X-ray of the right femur dated 05/26/2023 redemonstrates a displaced intertrochanteric fracture of the right femur. Limited x-ray of the right hip dated 05/27/2023 demonstrates satisfactory fixation of a intertrochanteric fracture of the right hip with near anatomic alignment. 05/28 Patient is seen today in follow-up.heart rate is running in the 60s at the time of exam, blood pressure 138/78, pulse ox 94% on 3 L nasal cannula. Additional lab work reveals hemoglobin A1c is 11.9. 05/29 Patient is in bed complaining of hip pain. He denies shortness of breath, no chest pain. Blood pressure is elevated this morning at 165/77 most likely secondary to pain. Heart rate is in the 50s and 60s. Note that patient's nurse was contacted yesterday regarding resuming Coumadin if okay with orthopedic s urgeon. Patient will need to be resumed on Coumadin. EXAMINATION: GENERAL: Well-appearing, well-nourished and in no acute distress. NECK: Supple without JVD or thyromegaly. LUNGS: Breath sounds clear to auscultation bilaterally. Respiration equal and unlabored. No wheezes, rales or rhonchi. HEART: Regular rate and rhythm without murmurs, rubs or gallops. S1 and S2 heard. EXTREMITIES: Pain with movement in the right hip, no edema. No clubbing or cyanosis. Peripheral pulses intact and strong. IMPRESSION: 1. S/P fall with right IT fracture 2. Complete Heart Block, dual chamber pacemaker 3. Rhabdomyolysis post fall 4. Elevated troponin secondary to rhabdomyolysis 5. Persistent atrial fibrillation on Coumadin PLAN: Continue Atorvastatin 40mg daily Continue home cardiac medications. Resume warfarin once cleared by orthopedics. No further recommendations from a cardiology standpoint. Thank you for the consult and allowing us to participate in the care of this patient. Objective - Vital Signs Vital signs: Vital Signs Temp 97.7 F 05/29/23 02:05 Pulse 57 L 05/29/23 02:05 Resp 16 05/29/23 02:05 BP 155/73 05/29/23 02:05 Pulse Ox 95 05/29/23 02:05 FiO2 Intake & Output 05/28/23 05/29/23 05/29/23 18:59 06:59 18:59 Output Total 800 300 Balance -800 -300 Weight 81.647 kg Output: Urine 800 300 Other: Voiding Method Indwelling Catheter Indwelling Catheter # Bowel Movements 1 - Labs CBC & Chem 7: 05/26/23 08:54 05/26/23 08:54 Labs: Abnormal Lab Results - Last 24 Hours (Table) 05/28/23 05/28/23 05/28/23 Range/Units 11:30 17:10 20:00 POC Glucose (mg/dL) 390 H 371 H 389 H (70-110) mg/dL 05/29/23 Range/Units 05:55 POC Glucose (mg/dL) 126 H (70-110) mg/dL
[2023-05-29 09:12] LABS: Basophils # (A) 0.02 X 10*3/uL (0.00-0.10); Basophils % (A) 0.2 %; Eosinophils # (A) 0.01 X 10*3/uL (0.04-0.35); Eosinophils % (A) 0.1 %; HGB 11.5 d/dL (13.0-17.0); Lymphocytes # (A) 0.92 X 10*3/uL (0.90-5.00); Lymphocytes % (A) 8.4 %; MCH 30.3 pg (27.0-32.0); MCHC 33.8 d/dL (32.0-37.0); MCV 89.5 FL (80.0-97.0); Mean Platelet Volume 12.3 FL (9.5-12.2); Monocytes # (A) 0.87 X 10*3/uL (0.20-1.00); NRBC Per 100 WBC 0 X 10*3/uL (0.00-0.01); Neutrophils # (A) 9.01 X 10*3/uL (1.80-7.70); Neutrophils % (A) 82.6 %; Platelet Count 185 X 10*3/uL (140-440); RDW 13.5 % (11.5-14.5); WBC 10.91 X 10*3/uL (4.50-10.00)
[2023-05-29 09:37] LABS: BUN/Creat Ratio 24.33 Ratio (12.00-20.00); Blood Urea Nitrogen 21.9 mg/dL (9.0-27.0); Calcium 8.5 mg/dL (8.7-10.3); Carbon Dioxide 22.7 mmol/L (21.6-31.8); Chloride 104 mmol/L (96-109); Glucose 135 mg/dL (70-110); Potassium 3.3 mmol/L (3.5-5.5); Sodium 138 mmol/L (135-145)
[2023-05-29] MEDS: HYDROcodone/APAP 7.5-325MG 1 EACH TAB PO PRN ×2 (10:03→16:59)
[2023-05-29 11:04] LABS: Basophils % (A) 0 %; Eosinophils # (A) 0.1 k/uL (0-0.7); Eosinophils % (A) 1 %; HCT 34.3 % (39.0-53.0); Lymphocytes # (A) 0.8 k/uL (1.0-4.8); Lymphocytes % (A) 10 %; MCH 32.5 pg (25.0-35.0); Mean Platelet Volume 10.6; Monocytes # (A) 0.5 k/uL (0-1.0); Monocytes % (A) 7 %; Neutrophils # (A) 6.5 k/uL (1.3-7.7); Neutrophils % (A) 81 %; Platelet Count 142 k/uL (150-450); RBC 3.68 m/uL (4.30-5.90); RDW 13.2 % (11.5-15.5)
[2023-05-29 11:41] LABS: Glucose,Whole Blood 241 mg/dL (70-110)
--- NOTE | 2023-05-29 12:34 | P.PN ---
Subjective Progress Note Date: 05/29/23 Principal diagnosis: Right hip IT fracture Patient was seen at bedside this morning lying semirecumbent position currently receiving respiratory breathing treatment patient currently does have a Danielle in place. Dressings appear to be clean, dry, intact over right hip. Patient has been accepted to go to [facility]. Patient reportedly like to [facility]. Patient does have pain when putting weight on the right lower Leg. Patient denies any other issues at this time. Patient denies chest pain, fever, shortness breath, nausea, vomiting, change in vision, loss/bladder control. Objective - Vital Signs Vital signs: Vital Signs Temp 98.2 F 05/29/23 07:34 Pulse 64 05/29/23 08:44 Resp 19 05/29/23 07:34 BP 165/77 05/29/23 07:34 Pulse Ox 95 05/29/23 08:35 FiO2 21 05/29/23 08:35 Intake & Output 05/28/23 05/29/23 05/29/23 18:59 06:59 18:59 Output Total 800 300 Balance -800 -300 Weight 81.647 kg Output: Urine 800 300 Other: Voiding Method Indwelling Catheter Indwelling Catheter # Bowel Movements 1 - Exam Inspection: Surgical dressing present over right lateral hip. Incision appears to be clean, dry, intact. Negative for any active drainage. Negative for erythema/open fractures. Sensation: Equal, symmetric, bilaterally intact at the upper and lower extremities on exam. Palpation: Fair amount of tenderness to palpation throughout right hip on exam. Nontender to palpation throughout rest of exam Range of motion: Patient has full range of motion bilateral upper extremities on exam. There is limited range of motion in the right hip and knee flexion/extension secondary to referred pain to the right hip.. Patient has full range of motion left lower extremity exam Motor: 4/5 in all major motor groups left lower extremity and bilateral upper extremities. 3+/5 in resisted right hip flexion extension, right knee flexion extension. 4-/5 in resisted right ankle dorsi/plantar flexion. Neurovascular: Radial pulses intact, 2+ bilaterally. DP pulse intact bilaterally. Cap refill under 3 seconds in digits upper extremities. Special tests: Negative Homans bilaterally. Negative clonus bilaterally. Negative Reynaldo - Labs CBC & Chem 7: 05/29/23 10:40 05/29/23 05:43 Labs: Abnormal Lab Results - Last 24 Hours (Table) 05/28/23 05/28/23 05/28/23 Range/Units 11:30 17:10 20:00 WBC (4.50-10.00) X 10*3/uL RBC (4.40-5.60) X 10*6/uL Hgb (13.0-17.0) d/dL Hct (39.6-50.0) % MPV (9.5-12.2) FL Neutrophils # (1.80-7.70) X 10*3/uL Eosinophils # (0.04-0.35) X 10*3/uL POC Glucose (mg/dL) 390 H 371 H 389 H (70-110) mg/dL 05/29/23 05/29/23 Range/Units 05:43 05:55 WBC 10.91 H (4.50-10.00) X 10*3/uL RBC 3.80 L (4.40-5.60) X 10*6/uL Hgb 11.5 L (13.0-17.0) d/dL Hct 34.0 L (39.6-50.0) % MPV 12.3 H (9.5-12.2) FL Neutrophils # 9.01 H (1.80-7.70) X 10*3/uL Eosinophils # 0.01 L (0.04-0.35) X 10*3/uL POC Glucose (mg/dL) 126 H (70-110) mg/dL Assessment and Plan Assessment: 1. Right hip IT fracture status post fall - Postop day 2 status post right hip IM nail Plan: 1. Right hip IT fracture - patient stable at bedside this morning. Pain medication as needed. Okay to restart Coumadin tmrw. Discontinue lovenox. PT/OT daily. Incision is clean, dry, intact. Plan for discharge to rehab tmrw. We'll continue to follow patient during stay in hospital 2. Appreciate medical and cardio management 3. Pain management - Tylenol; [facility] 4. DVT prophylaxis -discontinue lovenox; okay to resume coumadin tmrw 5. GI prophylaxis - senna 6. PT/OT - nonweightbearing right lower extremity 7. Encourage incentive spirometer use 8. Discharge planning - plan for discharge to rehab tmrw. Time with Patient: Less than 30
--- NOTE | 2023-05-29 12:50 | CA ---
Transthoracic Echo Report Name: James Marte Age: 88 Gender: M : 1935 Exam Date: 05/29/2023 09:00 Exam Location: [facility] Ht (in): 69 Wt (lb): 180 Ordering Physician: Vania Fitch Attending/Referring Phys: [id number], Constantine Chef Manager Prem Harper Procedure CPT: Indications: LVF Cardiac Hx: Technical Quality: Fair Contrast 1: Total Dose (mL): Contrast 2: Total Dose (mL): MEASUREMENTS (Male / Female) Normal Values 2D ECHO LV Diastolic Diameter PLAX 4.5 cm 4.2 - 5.9 / 3.9 - 5.3 cm LV Systolic Diameter PLAX 2.8 cm IVS Diastolic Thickness 1.2 cm 0.6 - 1.0 / 0.6 - 0.9 cm LVPW Diastolic Thickness 1.2 cm 0.6 - 1.0 / 0.6 - 0.9 cm LV Relative Wall Thickness 0.5 RV Internal Dim ED PLAX 4.1 cm LVOT Diameter 2.1 cm Aortic Root Diameter 3.0 cm LA Systolic Diameter LX 3.7 cm 3.0 - 4.0 / 2.7 - 3.8 cm LV Diastolic Volume MOD BP 95.2 cm??? 67 - 155 / 56 - 104 cm??? LV Systolic Volume MOD BP 46.5 cm??? - / 19 - 49 cm??? LV Ejection Fraction MOD BP 51.1 % >= 55 % LV Cardiac Index MOD BP 1939.6 cm???/min???m??? LV Diastolic Volume MOD 4C 92.7 cm??? LV Systolic Volume MOD 4C 48.7 cm??? LV Ejection Fraction MOD 4C 47.5 % LV Cardiac Index MOD 4C 1754.8 cm???/min???m??? LV Diastolic Length 4C 6.8 cm LV Systolic Length 4C 6.0 cm LV Diastolic Volume MOD 2C 92.1 cm??? LV Systolic Volume MOD 2C 43.5 cm??? LV Ejection Fraction MOD 2C 52.8 % LV Cardiac Index MOD 2C 1937.5 cm???/min???m??? LV Diastolic Length 2C 7.2 cm LV Systolic Length 2C 6.2 cm LA Volume 112.7 cm??? 18 - 58 / 22 - 52 cm??? LA Volume Index 56.1 cm???/m??? 16 - 28 cm???/m??? Ascending Aorta Diameter 3.0 cm DOPPLER AV Peak Velocity 207.2 cm/s AV Peak Gradient 17.2 mmHg LVOT Peak Velocity 75.9 cm/s LVOT Peak Gradient 2.3 mmHg LVOT Velocity Time Integral 13.7 cm LVOT Stroke Volume 45.2 cm??? LVOT Stroke Volume Index 22.9 ml/m??? LVOT Cardiac Index 1803.1 cm???/min???m??? AV Area Cont Eq pk 1.2 cm??? MV Peak Velocity 139.8 cm/s MV Peak Gradient 7.8 mmHg MV Mean Velocity 56.0 cm/s MV Mean Gradient 1.8 mmHg MV Velocity Time Integral 33.5 cm MR Peak Velocity 456.2 cm/s MR Peak Gradient 83.2 mmHg MV E' Velocity 4.9 cm/s TR Peak Velocity 351.6 cm/s TR Peak Gradient 49.4 mmHg Right Ventricular Systolic Press 59.4 mmHg FINDINGS Left Ventricle Normal LV size. Mild concentric LVH. Left ventricular ejection fraction is estimated at 50-55 %. Right Ventricle Mild right ventricular dilatation. Catheter/pacemaker wire in the right ventricular cavity. RVSP= 59mmHg. Right Atrium Normal right atrial size. RA area= 20.1cm2 Left Atrium Severely increased left atrial volume. Mildly increased left atrial area. LA volume index= 57ml/m2 Mitral Valve Mild Mitral Valve and annulus thickening. Mild to moderate MR. Aortic Valve Aortic valve not well visualized. Mild AV calcification. AV peak gradient= 17.2mmHg. Tricuspid Valve Structurally normal tricuspid valve. Severe TR. Pulmonic Valve Pulmonic valve not well visualized. No pulmonic regurgitation. Pericardium Normal pericardium. Aorta Normal size aortic root and proximal ascending aorta. CONCLUSIONS Normal LV function Enlarged left atrium Mild to moderate mitral regurgitation Mild aortic stenosis Severe tricuspid regurgitation Moderate pulmonary hypertension Previewed by: Dr. Morgan Peters MD (Electronically Signed) Final Date: 29 May 2023 12:50
--- NOTE | 2023-05-29 14:55 | P.PN ---
Subjective Progress Note Date: 05/29/23 This is an 88-year-old gentleman admitted with a right hip IT fracture status post fall, postop day 1 right hip IM Nail. Reports no pain at rest, positive pain with movement. Positive diet intake, passing flatus, no bowel movement. Blood sugars uncontrolled, in the 200s. Afebrile. Heart rate currently in the 60s. Oxygen requirements increased up to 3 L nasal cannula to maintain O2 sats in the mid 90s. Afebrile. 05/29/2023 reports significant pain with weightbearing. Anticoagulation with Coumadin being resumed today. Consuming approximately 50-75%, denies nausea vomiting or diarrhea. Positive bowel movements yesterday. Sat up in chair yesterday. Objective - Vital Signs Vital signs: Vital Signs Temp 98.2 F 05/29/23 07:34 Pulse 66 05/29/23 11:30 Resp 19 05/29/23 07:34 BP 165/77 05/29/23 07:34 Pulse Ox 95 05/29/23 08:35 FiO2 21 05/29/23 08:35 Intake & Output 05/28/23 05/29/23 05/29/23 18:59 06:59 18:59 Output Total 800 300 Balance -800 -300 Weight 81.647 kg Output: Urine 800 300 Other: Voiding Method Indwelling Catheter Indwelling Catheter Indwelling Catheter # Bowel Movements 1 - Exam PHYSICAL EXAM: VITAL SIGNS: [As above] GENERAL: Alert and oriented 3, Sitting up in bed, no acute distress HEENT: Normocephalic, Conjunctivae normal. eyes normal. NECK: Supple, No JVD. CARDIOVASCULAR: S1, S2 regular..No murmur RESPIRATION: Unlabored, Breath sounds diminished in the bases. ABDOMEN: Soft, nontender . No guarding. no masses palpable. +Bowel sounds. LEGS: Right lower extremity dressings clean dry and intact. No edema. no swelling , no clubbing, no cyanosis, positive DP pulse NERVOUS SYSTEM: Cranial N 2-12 grossly normal.No focal deficits.Strength and sensation grossly intact. Skin: Warm and dry, no rash. - Labs CBC & Chem 7: 05/29/23 10:40 05/29/23 05:43 Labs: Abnormal Lab Results - Last 24 Hours (Table) 05/28/23 05/28/23 05/29/23 Range/Units 17:10 20:00 05:43 WBC 10.91 H (4.50-10.00) X 10*3/uL RBC 3.80 L (4.40-5.60) X 10*6/uL Hgb 11.5 L (13.0-17.0) d/dL Hct 34.0 L (39.6-50.0) % Plt Count (150-450) k/uL MPV 12.3 H (9.5-12.2) FL Neutrophils # 9.01 H (1.80-7.70) X 10*3/uL Lymphocytes # (1.0-4.8) k/uL Eosinophils # 0.01 L (0.04-0.35) X 10*3/uL Potassium (3.5-5.5) mmol/L BUN/Creatinine Ratio (12.00-20.00) Ratio Glucose (70-110) mg/dL POC Glucose (mg/dL) 371 H 389 H (70-110) mg/dL Calcium (8.7-10.3) mg/dL 05/29/23 05/29/23 05/29/23 Range/Units 05:43 05:55 10:40 WBC (4.50-10.00) X 10*3/uL RBC 3.68 L (4.40-5.60) X 10*6/uL Hgb 12.0 L (13.0-17.0) d/dL Hct 34.3 L (39.6-50.0) % Plt Count 142 L (150-450) k/uL MPV (9.5-12.2) FL Neutrophils # (1.80-7.70) X 10*3/uL Lymphocytes # 0.8 L (1.0-4.8) k/uL Eosinophils # (0.04-0.35) X 10*3/uL Potassium 3.3 L (3.5-5.5) mmol/L BUN/Creatinine Ratio 24.33 H (12.00-20.00) Ratio Glucose 135 H (70-110) mg/dL POC Glucose (mg/dL) 126 H (70-110) mg/dL Calcium 8.5 L (8.7-10.3) mg/dL 05/29/23 Range/Units 11:40 WBC (4.50-10.00) X 10*3/uL RBC (4.40-5.60) X 10*6/uL Hgb (13.0-17.0) d/dL Hct (39.6-50.0) % Plt Count (150-450) k/uL MPV (9.5-12.2) FL Neutrophils # (1.80-7.70) X 10*3/uL Lymphocytes # (1.0-4.8) k/uL Eosinophils # (0.04-0.35) X 10*3/uL Potassium (3.5-5.5) mmol/L BUN/Creatinine Ratio (12.00-20.00) Ratio Glucose (70-110) mg/dL POC Glucose (mg/dL) 241 H (70-110) mg/dL Calcium (8.7-10.3) mg/dL Assessment and Plan Assessment: Right hip IT fracture status post fall, postop day 1 right hip IM Nail. Rhabdomyolysis status post fall Elevated troponin secondary to the above Postoperative atelectasis, expected outcome Acute hypoxic respiratory failure secondary to the above Diabetes mellitus, uncontrolled, hemoglobin A1c 11.9 ,hyperglycemic, further diabetic teaching outpatient in clinic with PCP. 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 Persistent atrial fibrillation on Coumadin COPD Prior nicotine dependence Plan: Continue on current medication regime ,monitoring and symptomatic treatment. Maintain aggressive pulmonary toileting with incentive spirometer reinforced. Pain management as per primary. PT. Coumadin per pharmacy dosing. The impression and plan of care has been dictated as directed. : I performed a history and examination of this patient, discussed the same with the dictator. I agree with the dictator's note ,documented as a scribe. Any additional findings or plans will be noted.
[2023-05-29 16:52] LABS: Glucose,Whole Blood 294 mg/dL (70-110)
[2023-05-29 20:42] LABS: Glucose,Whole Blood 230 mg/dL (70-110)
[2023-05-29] MEDS: SENNOSIDES-DOCUSATE SODIUM 1 EACH TAB PO SCH (21:17)
[2023-05-30 05:36] LABS: Glucose,Whole Blood 250 mg/dL (70-110)
[2023-05-30] MEDS: INSULIN ASPART (NovoLOG) 100 UNIT/ML VIAL SQ SCH ×3 (06:33→16:44)
[2023-05-30] MEDS: HYDROcodone/APAP 7.5-325MG 1 EACH TAB PO PRN ×2 (06:33→16:39)
[2023-05-30 07:04] LABS: Prothrombin Time 10.8 sec (9.0-12.0)
[2023-05-30] MEDS: IPRATROPIUM-ALBUTEROL 3 ML NEB INHALATION SCH ×3 (08:29→16:17)
[2023-05-30] MEDS ORDERED: TAMSULOSIN 0.4 MG CAP.ER.24H PO SCH (08:30)
[2023-05-30] MEDS: SYMBICORT 80-4.5 MCG INHALER INHALATION SCH (08:30)
[2023-05-30] MEDS: SENNOSIDES 8.6 MG TAB PO SCH (09:06)
[2023-05-30] MEDS: amLODIPine 5 MG TAB PO SCH (09:06)
[2023-05-30] MEDS: ATORVASTATIN 40 MG TAB PO SCH (09:06)
[2023-05-30] MEDS: hydrALAZINE HCL 50 MG TAB PO SCH ×2 (09:06→16:39)
[2023-05-30] MEDS: INSULIN DETEMIR (LEVEMIR) 100 UNIT/ML SYR SQ SCH (09:06)
[2023-05-30] MEDS: lisinopriL 20 MG TAB PO SCH (09:06)
[2023-05-30] MEDS: atenoloL 25 MG TAB PO SCH (09:06)
[2023-05-30] MEDS ORDERED: INSULIN DETEMIR (LEVEMIR) 100 UNIT/ML SYR SQ ONE (09:19)
[2023-05-30] MEDS ORDERED: hydroCHLOROthiazide 25 MG TAB PO SCH (09:30)
--- NOTE | 2023-05-30 09:45 | P.PN ---
Subjective Progress Note Date: 05/30/23 Principal diagnosis: Right hip IT fracture Patient was seen at bedside this morning lying semirecumbent position eating breakfast. Nurse mentions since harrington removed last night patient has not urinated on own and was straight cathed. Patient denies having any urinary issues in the past and says he has never seen a urologist before. Patient has been accepted to go to [facility]. Patient does have pain when putting weight on the right lower Leg. Patient denies any other issues at this time. Patient denies chest pain, fever, shortness breath, nausea, vomiting, change in vision, loss/bladder control. Objective - Vital Signs Vital signs: Vital Signs Temp 97.4 F L 05/30/23 07:09 Pulse 60 05/30/23 08:39 Resp 17 05/30/23 07:09 BP 149/67 05/30/23 07:09 Pulse Ox 94 L 05/30/23 07:09 FiO2 21 05/29/23 08:35 Intake & Output 05/29/23 05/30/23 05/30/23 18:59 06:59 18:59 Output Total 300 400 Balance -300 -400 Output: Urine 300 Post Void Residual 400 Other: Voiding Method Indwelling Catheter # Voids 1 - Exam Inspection: Surgical dressing present over right lateral hip. Dressing presents with some saturation. New dressings were placed over incision. Incisions. Be healing well at this time. Cade are well aligned and intact. Negative for any active drainage. Negative for erythema/open fractures. Sensation: Equal, symmetric, bilaterally intact at the upper and lower extremities on exam. Palpation: Fair amount of tenderness to palpation throughout right hip on exam. Nontender to palpation throughout rest of exam Range of motion: Patient has full range of motion bilateral upper extremities on exam. There is limited range of motion in the right hip and knee flexion/extension secondary to referred pain to the right hip.. Patient has full range of motion left lower extremity exam Motor: 4/5 in all major motor groups left lower extremity and bilateral upper extremities. 3+/5 in resisted right hip flexion extension, right knee flexion extension. 4-/5 in resisted right ankle dorsi/plantar flexion. Neurovascular: Radial pulses intact, 2+ bilaterally. DP pulse intact bilaterall y. Cap refill under 3 seconds in digits upper extremities. Special tests: Negative Homans bilaterally. Negative clonus bilaterally. Negative Reynaldo - Labs CBC & Chem 7: 05/29/23 10:40 05/29/23 05:43 Labs: Abnormal Lab Results - Last 24 Hours (Table) 05/29/23 05/29/23 05/29/23 Range/Units 05:43 05:43 10:40 WBC 10.91 H (4.50-10.00) X 10*3/uL RBC 3.80 L 3.68 L (4.40-5.60) X 10*6/uL Hgb 11.5 L 12.0 L (13.0-17.0) d/dL Hct 34.0 L 34.3 L (39.6-50.0) % Plt Count 142 L (150-450) k/uL MPV 12.3 H (9.5-12.2) FL Neutrophils # 9.01 H (1.80-7.70) X 10*3/uL Lymphocytes # 0.8 L (1.0-4.8) k/uL Eosinophils # 0.01 L (0.04-0.35) X 10*3/uL Potassium 3.3 L (3.5-5.5) mmol/L BUN/Creatinine Ratio 24.33 H (12.00-20.00) Ratio Glucose 135 H (70-110) mg/dL POC Glucose (mg/dL) (70-110) mg/dL Calcium 8.5 L (8.7-10.3) mg/dL 05/29/23 05/29/23 05/29/23 Range/Units 11:40 16:49 20:40 WBC (4.50-10.00) X 10*3/uL RBC (4.40-5.60) X 10*6/uL Hgb (13.0-17.0) d/dL Hct (39.6-50.0) % Plt Count (150-450) k/uL MPV (9.5-12.2) FL Neutrophils # (1.80-7.70) X 10*3/uL Lymphocytes # (1.0-4.8) k/uL Eosinophils # (0.04-0.35) X 10*3/uL Potassium (3.5-5.5) mmol/L BUN/Creatinine Ratio (12.00-20.00) Ratio Glucose (70-110) mg/dL POC Glucose (mg/dL) 241 H 294 H 230 H (70-110) mg/dL Calcium (8.7-10.3) mg/dL 05/30/23 Range/Units 05:34 WBC (4.50-10.00) X 10*3/uL RBC (4.40-5.60) X 10*6/uL Hgb (13.0-17.0) d/dL Hct (39.6-50.0) % Plt Count (150-450) k/uL MPV (9.5-12.2) FL Neutrophils # (1.80-7.70) X 10*3/uL Lymphocytes # (1.0-4.8) k/uL Eosinophils # (0.04-0.35) X 10*3/uL Potassium (3.5-5.5) mmol/L BUN/Creatinine Ratio (12.00-20.00) Ratio Glucose (70-110) mg/dL POC Glucose (mg/dL) 250 H (70-110) mg/dL Calcium (8.7-10.3) mg/dL Assessment and Plan Assessment: 1. Right hip IT fracture status post fall - Postop day 3 status post right hip IM nail Plan: 1. Right hip IT fracture - patient stable at bedside this morning. Pain medication as needed. Restart Coumadin today. PT/OT daily. New dressings placed over incision. dose flomax given. If patient unable to urinate on own, send with harrington to [facility]. follow up with urologist in outpatient setting. Discharge to [facility] today. 2. Appreciate medical and cardio management 3. Pain management - Tylenol; Wayan 4. DVT prophylaxis -restart coumadin today 5. GI prophylaxis - senna 6. PT/OT - WBAT w/walker and assistance 7. Encourage incentive spirometer use 8. Discharge planning - discharge to rehab today. Time with Patient: Less than 30
--- NOTE | 2023-05-30 09:51 | P.DS ---
Providers Date of admission: 05/26/23 10:49 Expected date of discharge: 05/30/23 Attending physician: Delbert Stubbs, Consults: 05/26/23 10:54 Consult Physician Urgent Consulting Provider: Kranthi Cuevas Consult Reason/Comments: Medical management, surgical clearance Do you want consulting provider notified?: Yes 05/26/23 11:35 Consult Physician Routine Consulting Provider: Sri Akhtar Consult Reason/Comments: Cardiac clearance, hx of afib Do you want consulting provider notified?: Yes 05/26/23 12:17 Consult Physician Urgent Consulting Provider: Marty Royal Consult Reason/Comments: cardiac clearance for right hip IT fracture surgery- pacemaker Do you want consulting provider notified?: Yes Primary care physician: Kranthi Cuevas Hospital Course: Date of admission: 05/26/2023 Date of discharge: 05/30/2023 Admission diagnosis: Right hip IT fracture Discharge diagnosis: same Attending physician: Dr. Stubbs Surgical procedures: Right hip IM nail Brief history: Patient is a 88-year-old male with a history of right hip IT fracture status post fall. At this point patient has failed conservative treatment measures and has opted to proceed with a elective right hip IM nail. Hospital course: Details of patient's surgery can be found in operative report. Patient tolerated the procedure well and was subsequently transported to orthopedic floor. Patient's orthopeidc and medical care was provided daily. Patient had daily laboratory tests performed for evaluation of overall blood counts. Patient had daily physical therapy to include strengthening range of motion as well as education with walker ambulation. Patient was treated with Lovenox for their postoperative DVT prophylaxis during their inpatient stay. Patient was noted to have a relatively uneventful postoperative course. Patient reported satisfactory pain control with oral pain medications by postoperative day 3. Patient showed satisfactory progress with physical therapy. Patient moved steadily through the program and had no difficulty meeting the goals by postoperative day 3. Given patient's otherwise satisfactory course and having m et physical therapy goals, plan is to discharge patient to rehab on postoperative day 3. Discharge condition/disposition: Patient will be discharged to rehab in stable condition. Discharge medications: Instructions are given on resumption of patient's normal daily medications per primary care recommendation, in addition patient will be prescribed [place]; senna; resume Coumadin. Discharge instructions: 1. Wound care and infection precautions, keep incision dry and covered while showering, no lotions, creams, moisturizers. No soaking, tubs, pools, hottubs. Do not scrub over the incision. 2. Weight-bear as tolerated with walker / cane until follow-up. 3. Ice and elevate when necessary. Do not exceed 20 minutes per hour with ice pack. 4. Utilize compression sleeve until seen at first follow up appointment. 5. Nursing care. 6. Physical therapy 7. Pain meds and anticoagulants per prescription. 8. Pain medication has potential to cause constipation. Increase oral fluid and fiber intake. Contact primary care provider if you have not had a bowel movement within 48 hours after discharge 9. No anti-inflammatory medication until discussed at first post operative visit, this including Motrin, Aleve, Mobic, Diclofenac. 10. Follow up in office at [address] Delbert Stubbs 11. Follow up with your primary care doctor 7-10 days after discharge. 12. Contact [facility] with any questions, . Assessment: Right hip IT fracture Procedures: Right hip IM nail Patient Condition at Discharge: Fair Plan - Discharge Summary Discharge Rx Participant: No New Discharge Prescriptions: New Ipratropium-Albuterol Nebulize [Duoneb 0.5 mg-3 mg/3 ml Soln] 3 ml INHALATION Q4H PRN each PRN Reason: Shortness Of Breath Or Wheezing HYDROcodone/APAP 7.5-325MG [[place] 7.5-325] 1 tab PO Q6HR PRN #24 tab PRN Reason: Pain Sennosides/Docusate Sodium [Senna Plus 8.6-50 mg Softgel] 1 each PO DAILY #20 capsule INSULIN LISPRO (HumaLOG) [humaLOG] 0 unit SQ ACHS #10 ml Ipratropium-Albuterol Nebulize [Duoneb 0.5 mg-3 mg/3 ml Soln] 3 ml INHALATION RT-QID each Budesonide/Formoterol Fumarate [Symbicort 80-4.5 Mcg Inhaler] 2 puff INHALATION BID #1 each Tamsulosin [Flomax] 0.4 mg PO PC-BRKFST cap Insulin Detemir (Levemir) [Levemir] 24 unit SQ DAILY@0700 #1 each Sennosides-Docusate Sodium [Senokot-S] 2 each PO HS tab Continue lisinopriL [Zestril] 20 mg PO BID hydrALAZINE HCL [Apresoline] 50 mg PO TID hydroCHLOROthiazide [Hydrodiuril] 25 mg PO DAILY Warfarin [Coumadin] 5 mg PO DAILY atenoloL [Tenormin] 25 mg PO DAILY amLODIPine [Norvasc] 5 mg PO DAILY Discontinued Pioglitazone [Actos] 15 mg PO DAILY Glimepiride [Amaryl] 2 mg PO DAILY metFORMIN HCL [Glucophage] 1,000 mg PO BID Discharge Medication List Warfarin [Coumadin] 5 mg PO DAILY 03/15/16 [History] amLODIPine [Norvasc] 5 mg PO DAILY 03/15/16 [History] atenoloL [Tenormin] 25 mg PO DAILY 03/15/16 [History] hydrALAZINE HCL [Apresoline] 50 mg PO TID 03/15/16 [History] hydroCHLOROthiazide [Hydrodiuril] 25 mg PO DAILY 03/15/16 [History] lisinopriL [Zestril] 20 mg PO BID 03/15/16 [History] Budesonide/Formoterol Fumarate [Symbicort 80-4.5 Mcg Inhaler] 2 puff INHALATION BID #1 each 05/29/23 [Rx] INSULIN LISPRO (HumaLOG) [humaLOG] 0 unit SQ ACHS #10 ml 05/29/23 [Rx] Ipratropium-Albuterol Nebulize [Duoneb 0.5 mg-3 mg/3 ml Soln] 3 ml INHALATION Q4H PRN each 05/29/23 [Rx] Ipratropium-Albuterol Nebulize [Duoneb 0.5 mg-3 mg/3 ml Soln] 3 ml INHALATION RT-QID each 05/29/23 [Rx] HYDROcodone/APAP 7.5-325MG [[place] 7.5-325] 1 tab PO Q6HR PRN #24 tab 05/30/23 [Rx] Insulin Detemir (Levemir) [Levemir] 24 unit SQ DAILY@0700 #1 each 05/30/23 [Rx] Sennosides-Docusate Sodium [Senokot-S] 2 each PO HS tab 05/30/23 [Rx] Sennosides/Docusate Sodium [Senna Plus 8.6-50 mg Softgel] 1 each PO DAILY #20 capsule 05/30/23 [Rx] Tamsulosin [Flomax] 0.4 mg PO PC-BRKFST cap 05/30/23 [Rx] Follow up Appointment(s)/Referral(s): Kranthi Cuevas DO [Primary Care Provider] - 1 Week (After DC from subacute rehab) Delbert Stubbs DO [Doctor of Osteopathic Medicine] - 06/11/23 11:30 am Jacobo Robb MD [STAFF PHYSICIAN] - 1 Week Activity/Diet/Wound Care/Special Instructions: Yonas BAE Daily PT/INR CBC,BMP in 3 days Discharge instructions: 1. Wound care and infection precautions, keep incision dry and covered while showering, no lotions, creams, moisturizers. No soaking, tubs, pools, hottubs. Do not scrub over the incision. 2. Weight-bear as tolerated with walker / cane until follow-up. 3. Ice and elevate when necessary. Do not exceed 20 minutes per hour with ice pack. 4. Utilize compression sleeve until seen at first follow up appointment. 5. Nursing care. 6. Physical therapy 7. Pain meds and anticoagulants per prescription. 8. Pain medication has potential to cause constipation. Increase oral fluid and fiber intake. Contact primary care provider if you have not had a bowel movement within 48 hours after discharge 9. No anti-inflammatory medication until discussed at first post operative visit, this including Motrin, Aleve, Mobic, Diclofenac. 10. Follow up in office at [address] Delbert Stubbs 11. Follow up with your primary care doctor 7-10 days after discharge. 12. Contact [facility] with any questions, . Discharge Disposition: TRANSFER TO SNF/ECF
[2023-05-30] MEDS ORDERED: POTASSIUM CHLORIDE ER 20 MEQ TAB.ER PO SCH (10:00)
[2023-05-30] MEDS: SODIUM CHLORIDE 0.9% 1,000 ML IV SCH (10:12)
[2023-05-30 10:44] LABS: African American GFR (CKD) >90 (>60 ml/min/1.73 sqM); Anion Gap 9 mmol/L; Blood Urea Nitrogen 20 mg/dL (9-20); Calcium 7.8 mg/dL (8.4-10.2); Carbon Dioxide 22 mmol/L (22-30); Chloride 103 mmol/L (98-107); Glucose 258 mg/dL (74-99); Non-African American GFR(CKD) 82 (>60 ml/min/1.73 sqM); Potassium 3.3 mmol/L (3.5-5.1); Sodium 134 mmol/L (137-145)
[2023-05-30] MEDS ORDERED: polyethylene glycoL 3350 17 GM POWD.PACK PO STA (10:47)
--- NOTE | 2023-05-30 10:54 | P.PN ---
Subjective Progress Note Date: 05/30/23 This is an 88-year-old gentleman admitted with a right hip IT fracture status post fall, postop day 1 right hip IM Nail. Reports no pain at rest, positive pain with movement. Positive diet intake, passing flatus, no bowel movement. Blood sugars uncontrolled, in the 200s. Afebrile. Heart rate currently in the 60s. Oxygen requirements increased up to 3 L nasal cannula to maintain O2 sats in the mid 90s. Afebrile. 05/29/2023 reports significant pain with weightbearing. Anticoagulation with Coumadin being resumed today. Consuming approximately 50-75%, denies nausea vomiting or diarrhea. Positive bowel movements yesterday. Sat up in chair yesterday. 05/30/2023 pain control improved. Anticoagulated on Coumadin, current INR 1. Blood sugars improving but remains in the mid 250s this morning, Lantus increased. Good diet intake, denies nausea vomiting or diarrhea. Denies chest pain, palpitations or shortness of breath. Afebrile. Labs pending. Last bowel movement 2 days ago, a dose of MiraLAX ordered. Objective - Vital Signs Vital signs: Vital Signs Temp 97.4 F L 05/30/23 07:09 Pulse 60 05/30/23 08:39 Resp 17 05/30/23 07:09 BP 149/67 05/30/23 07:09 Pulse Ox 94 L 05/30/23 07:09 FiO2 21 05/29/23 08:35 Intake & Output 05/29/23 05/30/23 05/30/23 18:59 06:59 18:59 Output Total 300 400 Balance -300 -400 Output: Urine 300 Post Void Residual 400 Other: Voiding Method Indwelling Catheter # Voids 1 - Exam PHYSICAL EXAM: VITAL SIGNS: [As above] GENERAL: Alert and oriented 3, Sitting up in bed, no acute distress HEENT: Normocephalic, Conjunctivae normal. eyes normal. MMM. NECK: Supple, No JVD. CARDIOVASCULAR: S1, S2 regular.No murmur RESPIRATION: Unlabored, equal air entry, Breath sounds diminished in the bases. ABDOMEN: Soft, nondistended, nontender . No guarding. +Bowel sounds. LEGS: Right lower extremity dressings clean dry and intact. No edema. no swelling , no clubbing, no cyanosis, positive DP pulse NERVOUS SYSTEM: Cranial N 2-12 grossly normal.No focal deficits.Strength and sensation grossly intact. Skin: Warm and dry, no rash. - Labs CBC & Chem 7: 05/29/23 10:40 05/29/23 05:43 Labs: Abnormal Lab Results - Last 24 Hours (Table) 05/29/23 05/29/23 05/29/23 Range/Units 10:40 11:40 16:49 RBC 3.68 L (4.30-5.90) m/uL Hgb 12.0 L (13.0-17.5) gm/dL Hct 34.3 L (39.0-53.0) % Plt Count 142 L (150-450) k/uL Lymphocytes # 0.8 L (1.0-4.8) k/uL POC Glucose (mg/dL) 241 H 294 H (70-110) mg/dL 05/29/23 05/30/23 Range/Units 20:40 05:34 RBC (4.30-5.90) m/uL Hgb (13.0-17.5) gm/dL Hct (39.0-53.0) % Plt Count (150-450) k/uL Lymphocytes # (1.0-4.8) k/uL POC Glucose (mg/dL) 230 H 250 H (70-110) mg/dL Assessment and Plan Assessment: Right hip IT fracture status post fall, postop day 1 right hip IM Nail. Rhabdomyolysis status post fall Elevated troponin secondary to the above Postoperative atelectasis, expected outcome Acute hypoxic respiratory failure secondary to the above Diabetes mellitus, uncontrolled, hemoglobin A1c 11.9 ,hyperglycemic, further diabetic teaching outpatient in clinic with PCP. 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 Persistent atrial fibrillation on Coumadin COPD Prior nicotine dependence Plan: Continue on current medication regime ,monitoring and symptomatic treatment. BMP pending. Single dose of MiraLAX ordered as last bowel movement 2 days ago. Discharge pending a subacute rehab today as per orthopedic surgery.patient will be discharged on Lantus with NovoLog sliding scale for tighter blood sugar control.Maintain aggressive pulmonary toileting with incentive spirometer reinforced. Pain management as per primary. Anticoagulation with Coumadin, close monitoring of INR.Follow-up with PCP 1 week after discharge from subacute rehab. The impression and plan of care has been dictated as directed. : I performed a history and examination of this patient, discussed the same with the dictator. I agree with the dictator's note ,documented as a scribe. Any additional findings or plans will be noted.
[2023-05-30 11:26] LABS: Glucose,Whole Blood 255 mg/dL (70-110)
--- NOTE | 2023-05-30 12:50 | P.PN ---
Subjective Progress Note Date: 05/30/23 HPI: Patient is a pleasant 88-year-old male who has a past medical history that includes diabetes mellitus, hypertension, osteoarthritis, who presented to the hospital after a fall. Patient reports that he was at home standing in the kitchen, when he just felt himself starting to fall. Patient reports that he was unable to catch himself, and reports that he did not lose consciousness during this episode. Patient did fall and obtain a right IT fracture. This was discovered after presentation to the emergency department on imaging. Patient had an EKG completed which does show ventricular pacing. Patient does have a history of complete heart block with a dual-chamber pacemaker. We have been co nsulted for surgical clearance. REVIEW OF LABS, ECG & MEDICAL DATA: LABS: White count 12.8, hemoglobin 13.9, platelet 136, sodium 134, potassium 3.8, chloride 95, BUN 25, creatinine 1.2, calcium 9.3, crit and kinase 233, troponin 0.066, 0.069, BNP 5280 EKG: Ventricular paced rhythm IMAGING:CT of the brain with C-spine dated 05/26/2023 demonstrates no acute trauma to the head or neck, no acute bleed or mass effect, no acute trauma to the cervical spine but significant degenerative disc disease and osteoarthritic changes as described above. X-ray of the right hip and AP pelvis dated 05/26/20 demonstrates displaced intertrochanteric fracture of the right hip, no pelvic fracture. Chest x-ray dated 05/26/2023 demonstrates no acute cardiopulmonary disease, no evidence of acute trauma. X-ray of the right femur dated 05/26/2023 redemonstrates a displaced intertrochanteric fracture of the right femur. Limited x-ray of the right hip dated 05/27/2023 demonstrates satisfactory fixation of a intertrochanteric fracture of the right hip with near anatomic alignment. 05/28 Patient is seen today in follow-up.heart rate is running in the 60s at the time of exam, blood pressure 138/78, pulse ox 94% on 3 L nasal cannula. Additional lab work reveals hemoglobin A1c is 11.9. 05/29 Patient is in bed complaining of hip pain. He denies shortness of breath, no chest pain. Blood pressure is elevated this morning at 165/77 most likely secondary to pain. Heart rate is in the 50s and 60s. Note that patient's nurse was contacted yesterday regarding resuming Coumadin if okay with orthopedic s urgeon. Patient will need to be resumed on Coumadin. 05/30 Patient is seen today sitting in a chair. He is complaining of continued hip pain and is scheduled for discharge to [facility] today. He is complaining of difficulty swallowing which family states started when he came in the hospital. According to his nurse, he was taking his medications fine yesterday but last evening but had use applesauce to give him medications and that has continued today. He has also had some yellow-brown sputum and these 2 issues will be passed on to medical management. Patient has been resumed back on Coumadin. INR is 1.0. EXAMINATION: GENERAL: Well-appearing, well-nourished and in no acute distress. NECK: Supple without JVD or thyromegaly. LUNGS: Breath sounds clear to auscultation bilaterally. Respiration equal and unlabored. No wheezes, rales or rhonchi. HEART: Regular rate and rhythm without murmurs, rubs or gallops. S1 and S2 heard. EXTREMITIES: Pain with movement in the right hip, no edema. No clubbing or cyanosis. Peripheral pulses intact and strong. IMPRESSION: 1. Fall with right IT fracture status post IM nail fixation 2. Complete Heart Block, dual chamber pacemaker 3. Rhabdomyolysis post fall 4. Elevated troponin secondary to rhabdomyolysis 5. Persistent atrial fibrillation on Coumadin PLAN: Continue Atorvastatin 40mg daily Continue home cardiac medications. Continue Coumadin and monitor INR. No further recommendations from a cardiology standpoint. Thank you for the consult and allowing us to participate in the care of this patient. Objective - Vital Signs Vital signs: Vital Signs Temp 97.4 F L 05/30/23 07:09 Pulse 60 05/30/23 11:45 Resp 17 05/30/23 07:09 BP 149/67 05/30/23 07:09 Pulse Ox 94 L 05/30/23 07:09 FiO2 21 05/29/23 08:35 Intake & Output 05/29/23 05/30/23 05/30/23 18:59 06:59 18:59 Output Total 300 400 Balance -300 -400 Output: Urine 300 Post Void Residual 400 Other: Voiding Method Indwelling Catheter Urinal # Voids 1 - Labs CBC & Chem 7: 05/29/23 10:40 05/30/23 10:02 Labs: Abnormal Lab Results - Last 24 Hours (Table) 05/29/23 05/29/23 05/30/23 Range/Units 16:49 20:40 05:34 Sodium (137-145) mmol/L Potassium (3.5-5.1) mmol/L Glucose (74-99) mg/dL POC Glucose (mg/dL) 294 H 230 H 250 H (70-110) mg/dL Calcium (8.4-10.2) mg/dL 05/30/23 05/30/23 Range/Units 10:02 11:25 Sodium 134 L (137-145) mmol/L Potassium 3.3 L (3.5-5.1) mmol/L Glucose 258 H (74-99) mg/dL POC Glucose (mg/dL) 255 H (70-110) mg/dL Calcium 7.8 L (8.4-10.2) mg/dL
[2023-05-30] MEDS ORDERED: POTASSIUM CHLORIDE ER 20 MEQ TAB.ER PO STA (12:51)
[2023-05-30] MEDS: HYDROmorphone 0.5 MG/0.5 ML SYRINGE IVP PRN (13:19)
--- NOTE | 2023-05-30 13:19 | XR ---
EXAMINATION TYPE: XR chest 1V portable DATE OF EXAM: 05/30/2023 1:13 PM COMPARISON: Chest radiographs from 05/26/2023 TECHNIQUE: XR chest 1V portable Portable AP radiograph of the chest. CLINICAL INDICATION:Male, 88 years old with history of productive cough, shortness of breath; FINDINGS: Lungs/Pleura: There is no evidence of pleural effusion, focal consolidation, or pneumothorax. Hyperi nflation with chronic senescent parenchymal change. Pulmonary vascularity: Unremarkable. Heart/mediastinum: Cardiomediastinal silhouette is unremarkable. Atherosclerotic calcifications are seen in the aorta. Two lead cardiac conduction device overlying the left hemithorax with lead tips pr ojecting over the right ventricle and right atrium. Musculoskeletal: No acute osseous pathology. Degenerative changes of the thoracic spine. High riding bilateral humeral head suggestive of chronic rotator cuff tears. IMPRESSION: 1. No acute cardiopulmonary disease/process. 2. COPD changes.
[2023-05-30 16:38] LABS: Glucose,Whole Blood 107 mg/dL (70-110)
[2023-05-30] MEDS ORDERED: WARFARIN 5 MG TAB PO SCH (18:00)
[2023-05-30 20:06] VITALS: BP 138/72; PULSE 76; RESP 20; TEMP 97.8
== END 2023-05-30 20:20 | DRG 956 ==
LOC: EC 08:39 → 4SSUR 10:49
PROVIDERS: ADMIT Orthopaedic Surgery; ATTEND Orthopaedic Surgery
PROC: 0QS606Z Reposition Right Upper Femur with Intramedullary Internal Fixation Device, Open Approach (ICD-10-PCS; principal; 2023-05-27 10:00)
DX: S72.141A Displaced intertrochanteric fracture of right femur, initial encounter for closed fracture (principal); T79.6XXA Traumatic ischemia of muscle, initial encounter; J96.01 Acute respiratory failure with hypoxia; I44.2 Atrioventricular block, complete; I48.19 Other persistent atrial fibrillation; J44.0 Chronic obstructive pulmonary disease with (acute) lower respiratory infection; E11.22 Type 2 diabetes mellitus with diabetic chronic kidney disease; E11.65 Type 2 diabetes mellitus with hyperglycemia; N18.30 Chronic kidney disease, stage 3 unspecified; I12.9 Hypertensive chronic kidney disease with stage 1 through stage 4 chronic kidney disease, or unspecified chronic kidney disease; R79.89 Other specified abnormal findings of blood chemistry; M50.30 Other cervical disc degeneration, unspecified cervical region; M47.812 Spondylosis without myelopathy or radiculopathy, cervical region; J20.9 Acute bronchitis, unspecified; W01.0XXA Fall on same level from slipping, tripping and stumbling without subsequent striking against object, initial encounter; Y92.002 Bathroom of unspecified non-institutional (private) residence as the place of occurrence of the external cause; Z79.01 Long term (current) use of anticoagulants; Z79.899 Other long term (current) drug therapy; Z79.84 Long term (current) use of oral hypoglycemic drugs; Z95.0 Presence of cardiac pacemaker; Z87.891 Personal history of nicotine dependence
CPT/HCPCS: 36415; 70450; 71045; 72125; 73501; 73502; 80048; 80053; 82550; 83036; 83735; 83880; 84484; 85025; 85610; 85730; 93005; 93306; 94640; 94760; 96361; 96374; 99285; 99406

== ENCOUNTER 2023-06-06 12:04 | Inpatient (IN) | payer MEDICARE, BC ==
[2023-06-06] MEDS ORDERED: HYDROmorphone 0.5 MG/0.5 ML SYRINGE IVP STA ×2 (12:50→13:37)
[2023-06-06] MEDS: SODIUM CHLORIDE 0.9% 500 ML 500 ML IV SCH ×2 (13:06→13:52)
--- NOTE | 2023-06-06 13:07 | ED ---
General Adult HPI - General Chief complaint: Upper Respiratory Infection Stated complaint: Foot Pain Time Seen by Provider: 06/06/23 12:10 Source: patient, RN notes reviewed, old records reviewed Mode of arrival: EMS Limitations: altered mental status - History of Present Illness Initial comments: This is an 88-year-old male who recently had hip surgery and was recently diagnosed with pneumonia and treated with doxycycline. Patient comes in and is complaining of right foot pain and right hip pain and history is that he was a little bit altered today. However when I speak with him is alert and oriented 3. Patient denies shortness of breath or chest pain. Patient denies a fever chills. Patient denies any abdominal pain. Patient denies any back pain. Patient discontinued complaining of left hip pain. - Related Data Home Medications Medication Instructions Recorded Confirmed Warfarin [Coumadin] 5 mg PO DAILY@1700 03/15/16 06/06/23 amLODIPine [Norvasc] 5 mg PO DAILY@0800 03/15/16 06/06/23 atenoloL [Tenormin] 25 mg PO DAILY@0800 03/15/16 06/06/23 hydrALAZINE HCL [Apresoline] 50 mg PO Q8HR@0600,1400,2200 03/15/16 06/06/23 hydroCHLOROthiazide [Hydrodiuril] 25 mg PO DAILY@0800 03/15/16 06/06/23 lisinopriL [Zestril] 20 mg PO BID@0800,1700 03/15/16 06/06/23 Atorvastatin [Lipitor] 40 mg PO HS 06/06/23 06/06/23 Budesonide/Formoterol Fumarate 2 puff INHALATION RT-BID@0800,1700 06/06/23 [Symbicort 80-4.5 Mcg Inhaler] Doxycycline Hyclate 100 mg PO BID@0800,1700 06/06/23 06/06/23 Glucerna Shake 120 - 237 ml PO TID@0800,1200,1700 06/06/23 06/06/23 INSULIN ASPART (NovoLOG) [NovoLOG 8 unit SQ AC-TID 06/06/23 06/06/23 (formulary)] INSULIN LISPRO (HumaLOG) [humaLOG] See Protocol SQ ACHS 06/06/23 06/06/23 Insulin Detemir (Levemir) [Levemir] 32 unit SQ DAILY@0700 06/06/23 06/06/23 Magnesium Hydroxide [Milk of 7,200 mg PO DAILY PRN 06/06/23 06/06/23 Magnesia Concentrate] Na Phos,M-B/Na Phos,Di-Ba [Fleet 133 ml RECTAL DAILY PRN 06/06/23 06/06/23 Adult] Nystatin [Nystatin Oral Susp] 500,000 unit PO QID 06/06/23 06/06/23 Sennosides-Docusate Sodium 2 tab PO HS 06/06/23 06/06/23 [Senokot-S] Tamsulosin [Flomax] 0.4 mg PO DAILY@0800 06/06/23 06/06/23 bisacodyL [Dulcolax] 10 mg RECTAL DAILY PRN 06/06/23 06/06/23 guaiFENesin [guaiFENesin ER] 600 mg PO Q12HR@0800,2100 06/06/23 06/06/23 Previous Rx's Medication Instructions Recorded Ipratropium-Albuterol Nebulize 3 ml INHALATION Q4H PRN each 05/29/23 [Duoneb 0.5 mg-3 mg/3 ml Soln] Ipratropium-Albuterol Nebulize 3 ml INHALATION RT-QID each 05/29/23 [Duoneb 0.5 mg-3 mg/3 ml Soln] Acetaminophen Tab [Tylenol] 650 mg PO Q6HR PRN tab 05/30/23 HYDROcodone/APAP 7.5-325MG [[place] 1 tab PO Q6HR PRN #24 tab 05/30/23 7.5-325] Allergies Allergy/AdvReac Type Severity Reaction Status Date / Time No Known Allergies Allergy Verified 06/06/23 13:14 Review of Systems ROS Statement: Those systems with pertinent positive or pertinent negative responses have been documented in the HPI. ROS Other: All systems not noted in ROS Statement are negative. Past Medical History Past Medical History: Diabetes Mellitus, Hypertension, Osteoarthritis (OA) Additional Past Medical History / Comment(s): hiatal hernia, History of Any Multi-Drug Resistant Organisms: None Reported Past Surgical History: Pacemaker Additional Past Surgical History / Comment(s): saeid cataracts Past Anesthesia/Blood Transfusion Reactions: No Reported Reaction Type of Cardiac Device: Permanent Pacemaker Device Placement Date:: 2007 Past Psychological History: No Psychological Hx Reported Smoking Status: Former smoker Past Alcohol Use History: None Reported Past Drug Use History: None Reported - Past Family History Mother Family Medical History: Cancer Father Family Medical History: Cancer General Exam - General Exam Comments Initial Comments: GENERAL: Patient is well-developed and well-nourished. Patient is nontoxic and well- hydrated and is in no acute distress. ENT: Neck is soft and supple. No significant lymphadenopathy is noted. Oropharynx is clear. Moist mucous membranes. Neck has full range of motion without eliciting any pain. EYES: The sclera were anicteric and conjunctiva were pink and moist. Extraocular movements were intact and pupils were equal round and reactive to light. Eyelids were unremarkable. PULMONARY: Unlabored respirations. Good breath sounds bilaterally. No audible rales rhonchi or wheezing was noted. CARDIOVASCULAR: There is a regular rate and rhythm without any murmurs gallops or rubs. ABDOMEN: Soft and nontender with normal bowel sounds. SKIN: Skin is clear with no lesions or rashes and otherwise unremarkable. NEUROLOGIC: Patient is alert and oriented x3. Cranial nerves II through XII are grossly intact. Motor and sensory are also intact. Normal speech, volume and content. Symmetrical smile. MUSCULOSKELETAL: Patient's left hip is swollen and tender to palpation. Patient has some anterior right leg pain LYMPHATICS: No significant lymphadenopathy is noted PSYCHIATRIC: Normal psychiatric evaluation. Limitations: altered mental status Course Vital Signs 06/06/23 06/06/23 12:08 13:28 Temperature 98.7 F Pulse Rate 63 Respiratory 20 Rate Blood Pressure 130/64 124/66 O2 Sat by Pulse 99 Oximetry Medical Decision Making - Medical Decision Making EKG is interpreted by myself. EKG shows a paced rhythm at 60 bpm QRS is 189 QT interval 571 QTC is 572. Was pt. sent in by a medical professional or institution (, [facility], SCIENCE WRITER, urgent care, hospital, or assisted...) When possible be specific @ -Patient was sent in by the assisted Did you speak to anyone other than the patient for history (EMS, parent, family, police, friend...)? What history was obtained from this source @ -No Did you review nursing and triage notes (agree or disagree)? Why? @ -I reviewed and agree with nursing and triage notes Were old charts reviewed (outside hosp., previous admission, EMS record, old EKG, old radiological studies, urgent care reports/EKG's, assisted records)? Report findings @ -I reviewed prior charts in prior laboratory this patient Differential Diagnosis (chest pain, altered mental status, abdominal pain women, abdominal pain men, vaginal bleeding, weakness, fever, dyspnea, syncope, headache, dizziness, GI bleed, back pain, seizure, CVA, palpatations, mental health, musculoskeletal)? @ -Differential Altered Mental Status: Hypoglycemia, DKA, hypercapnia, ETOH, overdose, CO poisoning, trauma, myxedema coma, HTN encephalopathy, infection, encephalitis, psychosis, intercranial hemorrhage, hepatic encephalopathy, meningitis, CVA, this is not meant to be an all-inclusive list EKG interpreted by me (3pts min.). @ -As above X-rays interpreted by me (1pt min.). @ -Chest x-ray shows small pleural effusions. X-ray of the hip and foot showed no acute abnormality CT interpreted by me (1pt min.). @ -None done U/S interpreted by me (1pt. min.). @ -None done What testing was considered but not performed or refused? (CT, X-rays, U/S, labs)? Why? @ -None What meds were considered but not given or refused? Why? @ -None Did you discuss the management of the patient with other professionals (professionals i.e. , PA, SCIENCE WRITER, lab, RT, psych nurse, elementary school social worker, oil well logging engineer, teacher, public health officer, case monitor)? Give summary @ -I spoke with Dr. Cuevas she agreed to admit the patient Was smoking cessation discussed for >3mins.? @ -No Was critical care preformed (if so, how long)? @ -No Were there social determinants of health that impacted care today? How? (Homelessness, low income, unemployed, alcoholism, drug addiction, transportation, low edu. Level, literacy, decrease access to med. care, [place] [facility], rehab)? @ -No Was there de-escalation of care discussed even if they declined (Discuss DNR or withdrawal of care, Hospice)? DNR status @ -No What co-morbidities impacted this encounter? (DM, HTN, Smoking, COPD, CAD, Can cer, CVA, ARF, Chemo, Hep., AIDS, mental health diagnosis, sleep apnea, morbid obesity)? @ -None Was patient admitted / discharged? Hospital course, mention meds given and route, prescriptions, significant lab abnormalities, going to OR and other pertinent info. @ -Patient continually complained of hip and foot pain throughout his duration. X-ray of the foot and ankle were normal. Patient was positive for COVID. Patient also had an elevated troponin and lactic acid. Patient also had a questionable urine so the patient will be treated for urinary tract infection. I will consult or felt and cardiology. Patient was diagnosed with urinary tract infection at 245 Undiagnosed new problem with uncertain prognosis? @ -No Drug Therapy requiring intensive monitoring for toxicity (Heparin, Nitro, Insulin, Cardizem)? @ -No Were any procedures done? @ -No Diagnosis/symptom? @ -COVID-19 Acute, or Chronic, or Acute on Chronic? @ -Acute Uncomplicated (without systemic symptoms) or Complicated (systemic symptoms)? @ -Complicated Side effects of treatment? @ -No Exacerbation, Progression, or Severe Exacerbation? @ -No Poses a threat to life or bodily function? How? (Chest pain, USA, RI, pneumonia, PE, COPD, DKA, ARF, appy, cholecystitis, CVA, Diverticulitis, Homicidal, Suicidal, threat to staff... and all critical care pts) @ -No Diagnosis/symptom? @ -Elevated troponin Acute, or Chronic, or Acute on Chronic? @ -Acute Uncomplicated (without systemic symptoms) or Complicated (systemic symptoms)? @ -Complicated Side effects of treatment? @ -none Exacerbation, Progression, or Severe Exacerbation] @ -no Poses a threat to life or bodily function? @ -This could lead to an RI and an organ dysfunction Diagnosis/symptom? @ -Urinary tract infection Acute, or Chronic, or Acute on Chronic? @ -Acute Uncomplicated (without systemic symptoms) or Complicated (systemic symptoms)? @ -Complicated Side effects of treatment? @ -none Exacerbation, Progression, or Severe Exacerbation] @ -no Poses a threat to life or bodily function? @ -no Diagnosis/symptom? @ -Postsurgical pain Acute, or Chronic, or Acute on Chronic? @ -Acute Uncomplicated (without systemic symptoms) or Complicated (systemic symptoms)? @ -Complicated Side effects of treatment? @ -none Exacerbation, Progression, or Severe Exacerbation] @ -no Poses a threat to life or bodily function? @ -no - Lab Data Result diagrams: 06/06/23 12:31 06/06/23 12:31 Lab Results 06/06/23 06/06/23 06/06/23 Range/Units 11:29 12:31 12:31 WBC 13.2 H (3.8-10.6) k/uL RBC 3.55 L (4.30-5.90) m/uL Hgb 11.0 L (13.0-17.5) gm/dL Hct 32.3 L (39.0-53.0) % MCV 90.9 (80.0-100.0) fL MCH 31.0 (25.0-35.0) pg MCHC 34.1 (31.0-37.0) g/dL RDW 12.6 (11.5-15.5) % Plt Count 327 (150-450) k/uL MPV 8.5 Neutrophils % 82 % Lymphocytes % 9 % Monocytes % 6 % Eosinophils % 2 % Basophils % 0 % Neutrophils # 10.8 H (1.3-7.7) k/uL Lymphocytes # 1.1 (1.0-4.8) k/uL Monocytes # 0.8 (0-1.0) k/uL Eosinophils # 0.3 (0-0.7) k/uL Basophils # 0.0 (0-0.2) k/uL PT 20.4 H (9.0-12.0) sec INR 2.1 H (<1.2) APTT 29.9 (22.0-30.0) sec Sodium 132 L (137-145) mmol/L Potassium 3.5 (3.5-5.1) mmol/L Chloride 100 (98-107) mmol/L Carbon Dioxide 22 (22-30) mmol/L Anion Gap 10 mmol/L BUN 44 H (9-20) mg/dL Creatinine 1.24 (0.66-1.25) mg/dL Est GFR (CKD-EPI)AfAm 60 (>60 ml/min/1.73 sqM) Est GFR (CKD-EPI)NonAf 52 (>60 ml/min/1.73 sqM) Glucose 125 H (74-99) mg/dL Lactic Ac Sepsis Rflx Plasma Lactic Acid Karel (0.7-2.0) mmol/L Calcium 8.1 L (8.4-10.2) mg/dL Total Bilirubin 1.4 H (0.2-1.3) mg/dL AST 54 (17-59) U/L ALT 35 (4-49) U/L Alkaline Phosphatase 167 H (38-126) U/L Troponin I (0.000-0.034) ng/mL Total Protein 5.8 L (6.3-8.2) g/dL Albumin 2.7 L (3.5-5.0) g/dL Urine Color Urine Appearance (Clear) Urine pH (5.0-8.0) Ur Specific [place] (1.001-1.035) Urine Protein (Negative) Urine Glucose (UA) (Negative) Urine Ketones (Negative) Urine Blood (Negative) Urine Nitrite (Negative) Urine Bilirubin (Negative) Urine Urobilinogen (<2.0) mg/dL Ur Leukocyte Esterase (Negative) Urine RBC (0-5) /hpf Urine WBC (0-5) /hpf Urine Mucus (None) /hpf Urine Yeast (Budding) (None) /hpf Coronavirus (PCR) (Not Detectd) 06/06/23 06/06/23 06/06/23 Range/Units 12:31 12:31 12:31 WBC (3.8-10.6) k/uL RBC (4.30-5.90) m/uL Hgb (13.0-17.5) gm/dL Hct (39.0-53.0) % MCV (80.0-100.0) fL MCH (25.0-35.0) pg MCHC (31.0-37.0) g/dL RDW (11.5-15.5) % Plt Count (150-450) k/uL MPV Neutrophils % % Lymphocytes % % Monocytes % % Eosinophils % % Basophils % % Neutrophils # (1.3-7.7) k/uL Lymphocytes # (1.0-4.8) k/uL Monocytes # (0-1.0) k/uL Eosinophils # (0-0.7) k/uL Basophils # (0-0.2) k/uL PT (9.0-12.0) sec INR (<1.2) APTT (22.0-30.0) sec Sodium (137-145) mmol/L Potassium (3.5-5.1) mmol/L Chloride (98-107) mmol/L Carbon Dioxide (22-30) mmol/L Anion Gap mmol/L BUN (9-20) mg/dL Creatinine (0.66-1.25) mg/dL Est GFR (CKD-EPI)AfAm (>60 ml/min/1.73 sqM) Est GFR (CKD-EPI)NonAf (>60 ml/min/1.73 sqM) Glucose (74-99) mg/dL Lactic Ac Sepsis Rflx Plasma Lactic Acid Karel 2.2 H* (0.7-2.0) mmol/L Calcium (8.4-10.2) mg/dL Total Bilirubin (0.2-1.3) mg/dL AST (17-59) U/L ALT (4-49) U/L Alkaline Phosphatase (38-126) U/L Troponin I 0.355 H* (0.000-0.034) ng/mL Total Protein (6.3-8.2) g/dL Albumin (3.5-5.0) g/dL Urine Color Urine Appearance (Clear) Urine pH (5.0-8.0) Ur Specific [place] (1.001-1.035) Urine Protein (Negative) Urine Glucose (UA) (Negative) Urine Ketones (Negative) Urine Blood (Negative) Urine Nitrite (Negative) Urine Bilirubin (Negative) Urine Urobilinogen (<2.0) mg/dL Ur Leukocyte Esterase (Negative) Urine RBC (0-5) /hpf Urine WBC (0-5) /hpf Urine Mucus (None) /hpf Urine Yeast (Budding) (None) /hpf Coronavirus (PCR) Detected A (Not Detectd) 06/06/23 06/06/23 Range/Units 13:08 14:26 WBC (3.8-10.6) k/uL RBC (4.30-5.90) m/uL Hgb (13.0-17.5) gm/dL Hct (39.0-53.0) % MCV (80.0-100.0) fL MCH (25.0-35.0) pg MCHC (31.0-37.0) g/dL RDW (11.5-15.5) % Plt Count (150-450) k/uL MPV Neutrophils % % Lymphocytes % % Monocytes % % Eosinophils % % Basophils % % Neutrophils # (1.3-7.7) k/uL Lymphocytes # (1.0-4.8) k/uL Monocytes # (0-1.0) k/uL Eosinophils # (0-0.7) k/uL Basophils # (0-0.2) k/uL PT (9.0-12.0) sec INR (<1.2) APTT (22.0-30.0) sec Sodium (137-145) mmol/L Potassium (3.5-5.1) mmol/L Chloride (98-107) mmol/L Carbon Dioxide (22-30) mmol/L Anion Gap mmol/L BUN (9-20) mg/dL Creatinine (0.66-1.25) mg/dL Est GFR (CKD-EPI)AfAm (>60 ml/min/1.73 sqM) Est GFR (CKD-EPI)NonAf (>60 ml/min/1.73 sqM) Glucose (74-99) mg/dL Lactic Ac Sepsis Rflx Y Plasma Lactic Acid Karel (0.7-2.0) mmol/L Calcium (8.4-10.2) mg/dL Total Bilirubin (0.2-1.3) mg/dL AST (17-59) U/L ALT (4-49) U/L Alkaline Phosphatase (38-126) U/L Troponin I (0.000-0.034) ng/mL Total Protein (6.3-8.2) g/dL Albumin (3.5-5.0) g/dL Urine Color Yellow Urine Appearance Clear (Clear) Urine pH 6.0 (5.0-8.0) Ur Specific [place] 1.022 (1.001-1.035) Urine Protein Trace H (Negative) Urine Glucose (UA) Negative (Negative) Urine Ketones Negative (Negative) Urine Blood Negative (Negative) Urine Nitrite Negative (Negative) Urine Bilirubin Negative (Negative) Urine Urobilinogen <2.0 (<2.0) mg/dL Ur Leukocyte Esterase Moderate H (Negative) Urine RBC 1 (0-5) /hpf Urine WBC 18 H (0-5) /hpf Urine Mucus Rare H (None) /hpf Urine Yeast (Budding) Few H (None) /hpf Coronavirus (PCR) (Not Detectd) Disposition Clinical Impression: COVID-19, Postoperative pain, acute, hip, Elevated troponin, Urinary tract infection Disposition: ADMITTED IP TO THIS HOSP Referrals: Kranthi Cuevas DO [Primary Care Provider] - 1-2 days Time of Disposition: 16:38
[2023-06-06 13:33] LABS: Basophils % (A) 0 %; Eosinophils # (A) 0.3 k/uL (0-0.7); Eosinophils % (A) 2 %; HCT 32.3 % (39.0-53.0); Lymphocytes # (A) 1.1 k/uL (1.0-4.8); Lymphocytes % (A) 9 %; MCHC 34.1 g/dL (31.0-37.0); MCV 90.9 fL (80.0-100.0); Mean Platelet Volume 8.5; Monocytes # (A) 0.8 k/uL (0-1.0); Monocytes % (A) 6 %; Neutrophils # (A) 10.8 k/uL (1.3-7.7); Neutrophils % (A) 82 %; Platelet Count 327 k/uL (150-450); RBC 3.55 m/uL (4.30-5.90); RDW 12.6 % (11.5-15.5); WBC 13.2 k/uL (3.8-10.6)
[2023-06-06 13:42] LABS: ALT 35 U/L (4-49); AST 54 U/L (17-59); African American GFR (CKD) 60 (>60 ml/min/1.73 sqM); Albumin 2.7 g/dL (3.5-5.0); Alkaline Phosphatase 167 U/L (38-126); Anion Gap 10 mmol/L; Blood Urea Nitrogen 44 mg/dL (9-20); Calcium 8.1 mg/dL (8.4-10.2); Carbon Dioxide 22 mmol/L (22-30); Chloride 100 mmol/L (98-107); Glucose 125 mg/dL (74-99); Non-African American GFR(CKD) 52 (>60 ml/min/1.73 sqM); Potassium 3.5 mmol/L (3.5-5.1); Sodium 132 mmol/L (137-145); Total Bilirubin 1.4 mg/dL (0.2-1.3); Total Protein 5.8 g/dL (6.3-8.2)
[2023-06-06 13:47] LABS: INR 2.1 (<1.2); Partial Thromboplastin Time 29.9 sec (22.0-30.0); Prothrombin Time 20.4 sec (9.0-12.0)
[2023-06-06 14:06] LABS: Appearance,Urine Clear (Clear); Bilirubin,Urine Negative (Negative); Blood,Urine Negative (Negative); Budding Yeast,Urine Few /hpf; Color,Urine Yellow; Glucose,Urine (UA) Negative (Negative); Ketones,Urine Negative (Negative); Leukocyte Esterase,Urine Moderate (Negative); Mucus,Urine Rare /hpf; Nitrite,Urine Negative (Negative); Protein,Urine Trace (Negative); RBC,Urine 1 /hpf (0-5); Specific Gravity,Urine 1.022 (1.001-1.035); Urobilinogen,Urine <2.0 mg/dL (<2.0); WBC,Urine 18 /hpf (0-5)
[2023-06-06] MEDS ORDERED: SODIUM CHLORIDE 0.9% 500 ML 500 ML IV ONE (14:50)
[2023-06-06] MEDS ORDERED: ACETAMINOPHEN TAB 500 MG TAB PO STA (14:51)
[2023-06-06] MEDS ORDERED: cefTRIAXone IN SWFI 1,000 MG/10 ML SYRINGE IVP STA (14:51)
--- NOTE | 2023-06-06 15:29 | XR ---
EXAMINATION TYPE: XR chest 2V DATE OF EXAM: 06/06/2023 COMPARISON: 05/30/2023 HISTORY: Shortness of breath TECHNIQUE: Frontal and lateral views of the chest are obtained. FINDINGS: Scattered senescent parenchymal changes noted. Hyperinflation compatible with COPD. No evidence for infiltrate. No evidence for atelectasis. Small effusions seen posteriorly on the late ral projection. Pulmonary venous congestion without overt failure. Heart size is stable. Mediastinal structures are stable and grossly unremarkable. No evidence for hilar prominence. Degenerative changes dorsal spine. IMPRESSION: 1. Small effusions seen posteriorly on the lateral projection. Pulmonary venous congestion without ov ert failure.
--- NOTE | 2023-06-06 15:30 | XR ---
EXAMINATION TYPE: XR foot complete RT DATE OF EXAM: 06/06/2023 CLINICAL HISTORY: pain TECHNIQUE: Frontal, lateral and oblique images of the right foot are obtained. COMPARISON: None. FINDINGS: There is no acute fracture/dislocation evident. There is evidence of an os navicularis. Va scular calcifications seen. The joint spaces appear within normal limits. The overlying soft tissue appears unremarkable. IMPRESSION: There is no acute fracture or dislocation. ICD 10 NO FRACTURE, INITIAL EVALUATION
--- NOTE | 2023-06-06 15:31 | XR ---
EXAMINATION TYPE: XR ankle complete RT DATE OF EXAM: 06/06/2023 COMPARISON: NONE HISTORY: Pain FINDINGS: Three views of the ankle demonstrate the ankle mortise to be intact and symmetric. The joint spaces are preserved. The osseous structures are intact. Vascular calcifications. Diffuse soft tissue maral a. Well-corticated density adjacent to the lateral malleolus appears chronic. Calcaneal spurs and pes planus deformity. IMPRESSION: 1. No definite acute fracture or dislocation, if symptoms persist follow-up study in 7 to 10 days wou ld be suggested. 2. Diffuse soft tissue edema. Tiny bony density too small to characterize inferior to the lateral mal leolus is most likely chronic correlate with point tenderness.
[2023-06-06] MEDS ORDERED: IBUPROFEN 600 MG TAB PO STA (16:05)
[2023-06-06] MEDS ORDERED: NITROGLYCERIN SL TABS 0.4 MG TAB SUBLINGUAL PRN (16:38)
[2023-06-06] MEDS ORDERED: ACETAMINOPHEN TAB 325 MG TAB PO PRN (16:41)
[2023-06-06] MEDS: IBUPROFEN 600 MG TAB PO SCH ×2 (17:23→22:13)
[2023-06-07] MEDS: HYDROmorphone 0.5 MG/0.5 ML SYRINGE IVP PRN ×2 (03:32→17:50)
--- NOTE | 2023-06-07 09:36 | P.CNOR ---
History of Present Illness - [facility] Consult date: 06/07/23 Requesting physician: Tom Valle Consult reason: other (Right hip post op pain) History of present illness: History of Presenting Illness Patient is a pleasant 88-year-old male who presented to the ER with complaint of right foot pain and right hip pain. Patient was recently diagnosed with pneumonia and treated with doxycycline and is now currently positive for Covid. Patient is known to our services; Dr. Stubbs on 05/27/23 performed a Right hip IT nail fixation after a fall at home. Patient was discharged to [facility] for rehab. Prior to procedure patient was ambulatory independently. Patient does have a medical history of Diabetes Mellitus, Hypertension, Osteoarthritis (OA), and pacemaker placement in 2007. Patient denies any other orthopedic history. Patient seen and examined in the ER. Patient is resting comfortably on a stretcher. Patient does seem a bit lethargic this morning. He does report that his pain is currently managed. He denies any right lower extremity pain at this time. Patient was able to perform back exercises with mild difficulty. Patient does demonstrate right quad weakness. Patient denies any numbness or tingling to bilateral lower extremities. No acute concerns at this time. XR of the right foot and ankle are negative for any fracture or dislocation. XR of the right hip, hardware intact, no migration or loosening. Review of Systems Pertinent positives and negatives as discussed in HPI, a complete review of systems was performed and all other systems are negative. Physical Examination Inspection: Negative for any open fractures, ecchymosis, significant er ythema/ulcers. Surgical incision over the right hip, dressing is clean dry and intact. Sensation: Sensation is equal, symmetric, bilaterally intact throughout the upper and lower extremities Palpation: Nontender to palpation throughout bilateral upper and left lower extremities and throughout spine exam. Mild tenderness to palpation over the right hip. Range of motion: Patient does have full range of motion bilateral upper and left lower extremities on exam, limited range of motion of the right hip due to recent surgical procedure. Motor: 4/5 in all major motor groups in the bilateral upper and left lower extremities, 4-/5 right lower extremity. Special tests: Negative Homans bilaterally. Negative Reynaldo bilaterally. Negative clonus bilaterally. Neurovascular: Radial pulse intact, 2+ bilaterally. Cap refill under 3 seconds in digits upper extremities. Assessment and Plan Recent Right hip IT nail fixation Post-Op pain of right hip Covid19 Complex medical patient At this time we do not recommend any emergent/urgent orthopedic surgical intervention. Patient may follow-up with Dr. Stubbs office for further evaluation as needed. Orthopedics is signing off at this time. Please do not hesitate to contact us for any further questions. 2. Appreciate medical management 3. Pain management - Recommend previously discharged post op medication of Chromo 7.5 q 6hrs PRN 4. GI prophylaxis - senna 5. DVT prophylaxis - Aspirin 325mg daily 6. PT/OT - weightbearing as tolerated with a walker as needed. 7. Appreciate consult I reviewed and discussed this case with my attending Dr. Stubbs, whom has reviewed this chart and films and is in agreement with assessment and plan of care as outlined above. I have personally seen and examined the patient, performed the documentation and the assessment and plan as written. Number of minutes spent on the visit: [ ]. Past Medical History Past Medical History: Diabetes Mellitus, Hypertension, Osteoarthritis (OA) Additional Past Medical History / Comment(s): hiatal hernia, History of Any Multi-Drug Resistant Organisms: None Reported Past Surgical History: Pacemaker Additional Past Surgical History / Comment(s): saeid cataracts Past Anesthesia/Blood Transfusion Reactions: No Reported Reaction Type of Cardiac Device: Permanent Pacemaker Device Placement Date:: 2007 Past Psychological History: No Psychological Hx Reported Smoking Status: Former smoker Past Alcohol Use History: None Reported Past Drug Use History: None Reported - Past Family History Mother Family Medical History: Cancer Father Family Medical History: Cancer Medications and Allergies Home Medications Medication Instructions Recorded Confirmed Type Warfarin [Coumadin] 5 mg PO DAILY@1700 03/15/16 06/06/23 History amLODIPine [Norvasc] 5 mg PO DAILY@0800 03/15/16 06/06/23 History atenoloL [Tenormin] 25 mg PO DAILY@0800 03/15/16 06/06/23 History hydrALAZINE HCL [Apresoline] 50 mg PO Q8HR@0600,1400,2200 03/15/16 06/06/23 History hydroCHLOROthiazide [Hydrodiuril] 25 mg PO DAILY@0800 03/15/16 06/06/23 History lisinopriL [Zestril] 20 mg PO BID@0800,1700 03/15/16 06/06/23 History Ipratropium-Albuterol Nebulize 3 ml INHALATION Q4H PRN each 05/29/23 06/06/23 Rx [Duoneb 0.5 mg-3 mg/3 ml Soln] Ipratropium-Albuterol Nebulize 3 ml INHALATION RT-QID each 05/29/23 06/06/23 Rx [Duoneb 0.5 mg-3 mg/3 ml Soln] Acetaminophen Tab [Tylenol] 650 mg PO Q6HR PRN tab 05/30/23 06/06/23 Rx HYDROcodone/APAP 7.5-325MG [Chromo 1 tab PO Q6HR PRN #24 tab 05/30/23 06/06/23 Rx 7.5-325] Atorvastatin [Lipitor] 40 mg PO HS 06/06/23 06/06/23 History Budesonide/Formoterol Fumarate 2 puff INHALATION RT-BID@0800,1700 06/06/23 06/06/23 History [Symbicort 80-4.5 Mcg Inhaler] Doxycycline Hyclate 100 mg PO BID@0800,1700 06/06/23 06/06/23 History Glucerna Shake 120 - 237 ml PO TID@0800,1200,1700 06/06/23 06/06/23 History INSULIN ASPART (NovoLOG) [NovoLOG 8 unit SQ AC-TID 06/06/23 06/06/23 History (formulary)] INSULIN LISPRO (HumaLOG) [humaLOG] See Protocol SQ ACHS 06/06/23 06/06/23 History Insulin Detemir (Levemir) [Levemir] 32 unit SQ DAILY@0700 06/06/23 06/06/23 History Magnesium Hydroxide [Milk of 7,200 mg PO DAILY PRN 06/06/23 06/06/23 History Magnesia Concentrate] Na Phos,M-B/Na Phos,Di-Ba [Fleet 133 ml RECTAL DAILY PRN 06/06/23 06/06/23 History Adult] Nystatin [Nystatin Oral Susp] 500,000 unit PO QID 06/06/23 06/06/23 History Sennosides-Docusate Sodium 2 tab PO HS 06/06/23 06/06/23 History [Senokot-S] Tamsulosin [Flomax] 0.4 mg PO DAILY@0800 06/06/23 06/06/23 History bisacodyL [Dulcolax] 10 mg RECTAL DAILY PRN 06/06/23 06/06/23 History guaiFENesin [guaiFENesin ER] 600 mg PO Q12HR@0800,2100 06/06/23 06/06/23 History Allergies Allergy/AdvReac Type Severity Reaction Status Date / Time No Known Allergies Allergy Verified 06/06/23 13:14 Results - Labs Labs: Abnormal Lab Results - Last 24 Hours (Table) 06/06/23 06/06/23 06/06/23 Range/Units 11:29 12:31 12:31 WBC 13.2 H (3.8-10.6) k/uL RBC 3.55 L (4.30-5.90) m/uL Hgb 11.0 L (13.0-17.5) gm/dL Hct 32.3 L (39.0-53.0) % Neutrophils # 10.8 H (1.3-7.7) k/uL PT 20.4 H (9.0-12.0) sec INR 2.1 H (<1.2) Sodium 132 L (137-145) mmol/L BUN 44 H (9-20) mg/dL Glucose 125 H (74-99) mg/dL Plasma Lactic Acid Karel (0.7-2.0) mmol/L Calcium 8.1 L (8.4-10.2) mg/dL Total Bilirubin 1.4 H (0.2-1.3) mg/dL Alkaline Phosphatase 167 H (38-126) U/L Troponin I (0.000-0.034) ng/mL Total Protein 5.8 L (6.3-8.2) g/dL Albumin 2.7 L (3.5-5.0) g/dL Urine Protein (Negative) Ur Leukocyte Esterase (Negative) Urine WBC (0-5) /hpf Urine Mucus (None) /hpf Urine Yeast (Budding) (None) /hpf Coronavirus (PCR) (Not Detectd) 06/06/23 06/06/23 06/06/23 Range/Units 12:31 12:31 12:31 WBC (3.8-10.6) k/uL RBC (4.30-5.90) m/uL Hgb (13.0-17.5) gm/dL Hct (39.0-53.0) % Neutrophils # (1.3-7.7) k/uL PT (9.0-12.0) sec INR (<1.2) Sodium (137-145) mmol/L BUN (9-20) mg/dL Glucose (74-99) mg/dL Plasma Lactic Acid Karel 2.2 H* (0.7-2.0) mmol/L Calcium (8.4-10.2) mg/dL Total Bilirubin (0.2-1.3) mg/dL Alkaline Phosphatase (38-126) U/L Troponin I 0.355 H* (0.000-0.034) ng/mL Total Protein (6.3-8.2) g/dL Albumin (3.5-5.0) g/dL Urine Protein (Negative) Ur Leukocyte Esterase (Negative) Urine WBC (0-5) /hpf Urine Mucus (None) /hpf Urine Yeast (Budding) (None) /hpf Coronavirus (PCR) Detected A (Not Detectd) 06/06/23 06/06/23 06/06/23 Range/Units 13:08 19:18 21:54 WBC (3.8-10.6) k/uL RBC (4.30-5.90) m/uL Hgb (13.0-17.5) gm/dL Hct (39.0-53.0) % Neutrophils # (1.3-7.7) k/uL PT (9.0-12.0) sec INR (<1.2) Sodium (137-145) mmol/L BUN (9-20) mg/dL Glucose (74-99) mg/dL Plasma Lactic Acid Karel (0.7-2.0) mmol/L Calcium (8.4-10.2) mg/dL Total Bilirubin (0.2-1.3) mg/dL Alkaline Phosphatase (38-126) U/L Troponin I 0.334 H* 0.289 H* (0.000-0.034) ng/mL Total Protein (6.3-8.2) g/dL Albumin (3.5-5.0) g/dL Urine Protein Trace H (Negative) Ur Leukocyte Esterase Moderate H (Negative) Urine WBC 18 H (0-5) /hpf Urine Mucus Rare H (None) /hpf Urine Yeast (Budding) Few H (None) /hpf Coronavirus (PCR) (Not Detectd) H & H 06/06/23 Range/Units 12:31 Hgb 11.0 L (13.0-17.5) gm/dL Hct 32.3 L (39.0-53.0) % Coagulation 06/06/23 Range/Units 11:29 INR 2.1 H (<1.2) Result Diagrams: 06/06/23 12:31 06/06/23 12:31
--- NOTE | 2023-06-07 10:08 | XR ---
EXAMINATION TYPE: XR Hip Limited RT DATE OF EXAM: 06/07/2023 Comparison: 05/26/2023 Clinical History: 88-year-old male pain Findings: Lateral skin jeniffer. Antegrade intramedullary nail with screw fixation across the patient's known ri ght IT fracture. Minimally displaced fracture fragment of the lesser trochanter redemonstrated. Some soft tissue swelling likely related to recent operation. Impression: Intertrochanteric nailing with hip screw fixation proximal right femur. Gross anatomic alignment. Lat eral soft tissue swelling could be postsurgical or could reflect a recent injury. No new fracture see n.
[2023-06-07] MEDS: ASPIRIN 325 MG TAB PO SCH (10:58)
[2023-06-07] MEDS: IBUPROFEN 600 MG TAB PO SCH ×4 (10:58→21:42)
[2023-06-07 13:26] LABS: Chol/HDL Ratio 2.79 Ratio; LDL Cholesterol,Calculated 58.5 mg/dL (0.0-131.0)
[2023-06-07 14:07] LABS: Glucose,Whole Blood 54 mg/dL (70-110)
[2023-06-07] MEDS ORDERED: DEXTROSE 50% SYRINGE 50 ML IVP STA (14:19)
[2023-06-07] MEDS: DEXTROSE 5%-0.45% NACL 1,000 ML IV SCH (14:44)
[2023-06-07 15:05] LABS: Glucose,Whole Blood 109 mg/dL (70-110)
--- NOTE | 2023-06-07 16:01 | FL ---
EXAMINATION TYPE: FL barium swallow DATE OF EXAM: 06/07/2023 CLINICAL INDICATION: 88-year-old male recent hip surgery with pain and trouble swallowing COMPARISON: None Total Fluoroscopy Time: 1 minute 30 seconds Total DAP: 10 mGycm2. 28 images obtained. FINDINGS: Imaging is very limited as the patient was unable to stand and was in pain. Pain barium was utilized and the table was tilted proximally 30 degrees. No amparo aspiration is identified. However, there is a fairly large Zenker's diverticulum demonstrated. Mild tertiary peristaltic contractions but with blunted secondary stripping waves resulting in slight ly delayed clearance of contrast from the thoracic esophagus. There is a small sliding hiatal hernia. No fixed narrowing is identified. Left anterior chest wall pacemaker generator. IMPRESSION: 1. Very limited exam as the patient was in pain and unable to stand. 2. 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 3. Mild esophageal dysmotility without stricture. 4. Small sliding hiatal hernia.
[2023-06-07 16:58] LABS: Glucose,Whole Blood 113 mg/dL (70-110)
[2023-06-07] MEDS ORDERED: bisacodyL 10 MG SUPP RECTAL PRN (19:48)
[2023-06-07] MEDS ORDERED: HYDROcodone/APAP 7.5-325MG 1 EACH TAB PO PRN (19:48)
[2023-06-07] MEDS ORDERED: NA PHOS,M-B/NA PHOS,DI-BA 133 ML ENEMA RECTAL PRN (19:48)
[2023-06-07] MEDS ORDERED: ACETAMINOPHEN TAB 325 MG TAB PO PRN (19:48)
[2023-06-07] MEDS ORDERED: DEXTROSE 50% SYRINGE 50 ML IVP PRN ×2 (19:54)
[2023-06-07] MEDS ORDERED: INSULIN DETEMIR (LEVEMIR) 100 UNIT/ML SYR SQ SCH (20:30)
[2023-06-07 20:34] LABS: Glucose,Whole Blood 135 mg/dL (70-110)
[2023-06-07] MEDS: ALBUTEROL HFA INHALER INHALATION SCH (20:59)
[2023-06-07] MEDS: INSULIN ASPART (NovoLOG) 100 UNIT/ML VIAL SQ SCH (21:22)
[2023-06-07] MEDS: CHOLECALCIFEROL 25 MCG (1000 IU) TABLET PO SCH (21:42)
[2023-06-07] MEDS: ASCORBIC ACID 500 MG TAB PO SCH (21:42)
[2023-06-07] MEDS: SENNOSIDES-DOCUSATE SODIUM 1 EACH TAB PO SCH (21:42)
[2023-06-07] MEDS: ZINC SULFATE 220 MG CAP PO SCH (21:42)
[2023-06-07] MEDS: ATORVASTATIN 40 MG TAB PO SCH (21:42)
[2023-06-07] MEDS: PANTOPRAZOLE 40 MG/10 ML VIAL IVP SCH (21:49)
[2023-06-07] MEDS: hydrALAZINE HCL 50 MG TAB PO SCH (21:54)
[2023-06-08] MEDS: DEXTROSE 5%-0.45% NACL 1,000 ML IV SCH ×2 (05:55→18:56)
[2023-06-08 06:12] LABS: Glucose,Whole Blood 238 mg/dL (70-110)
[2023-06-08] MEDS: hydrALAZINE HCL 50 MG TAB PO SCH ×3 (06:16→22:12)
[2023-06-08] MEDS: INSULIN ASPART (NovoLOG) 100 UNIT/ML VIAL SQ SCH ×4 (06:41→22:11)
[2023-06-08] MEDS ORDERED: INSULIN DETEMIR (LEVEMIR) 100 UNIT/ML SYR SQ SCH ×2 (09:00→21:00)
[2023-06-08] MEDS: SYMBICORT 80-4.5 MCG INHALER INHALATION SCH ×2 (09:25→18:33)
[2023-06-08] MEDS: ALBUTEROL HFA INHALER INHALATION SCH ×4 (09:25→18:33)
[2023-06-08] MEDS: ASPIRIN 325 MG TAB PO SCH (09:45)
[2023-06-08] MEDS: CHOLECALCIFEROL 25 MCG (1000 IU) TABLET PO SCH (09:45)
[2023-06-08] MEDS: PANTOPRAZOLE 40 MG/10 ML VIAL IVP SCH (09:46)
[2023-06-08] MEDS: ZINC SULFATE 220 MG CAP PO SCH (09:46)
[2023-06-08] MEDS: TAMSULOSIN 0.4 MG CAP.ER.24H PO SCH (09:46)
[2023-06-08] MEDS: ASCORBIC ACID 500 MG TAB PO SCH ×2 (09:46→22:12)
[2023-06-08] MEDS: IBUPROFEN 600 MG TAB PO SCH ×4 (09:46→22:11)
[2023-06-08] MEDS: atenoloL 25 MG TAB PO SCH (09:46)
--- NOTE | 2023-06-08 10:36 | P.PN ---
Subjective Progress Note Date: 06/08/23 Principal diagnosis: Right ankle/foot pain; history of recent right hip IT fracture with IM nail fixation Patient was seen at bedside this morning sitting up in chair with legs elevated. Patient says his hip pain is tolerable when he is sitting in bed/tear. Patient says the pain does increase when he gets up and bears weight on the right lower extremity. Patient said he is also having right ankle/foot pain. X-rays were negative for any fracture/dislocation. Patient did have right hip IM nail fixation performed by Dr. Stubbs on 05/27/2023. Patient feels that he is improving in regards to this. Patient denies any other orthopedic issues at this time. Objective - Vital Signs Vital signs: Vital Signs Temp 98.2 F 06/08/23 04:43 Pulse 64 06/08/23 08:00 Resp 16 06/08/23 08:00 BP 151/71 06/08/23 08:00 Pulse Ox 96 06/08/23 08:00 FiO2 Intake & Output 06/07/23 06/08/23 06/08/23 18:59 06:59 18:59 Output Total 515 Balance -515 Weight 71 kg Output: Urine 515 Other: Voiding Method Urinal # Voids 1 - Exam Incisions over her right hip appear to be clean, dry, intact. Negative for any active drainage. Kendall are well aligned and in good place. There is some ecchymosis surrounding the incision. Negative for any fluctuance/purulence. Sensation is equal, symmetric, bilaterally intact throughout the lower extremities. Patient does have limited range of motion in the right hip and right knee and flexion and extension secondary to referred pain/weakness in the right lower extremity. 4-/5 in resisted right hip and knee flexion/extension. 4/5 in all other major motor groups in bilateral lower extremities. Negative Homans bilaterally. DP pulses intact bilaterally. Cap refill under 3 seconds in digits of lower extremities. - Labs CBC & Chem 7: 06/06/23 12:31 06/06/23 12:31 Labs: Abnormal Lab Results - Last 24 Hours (Table) 06/07/23 06/07/23 06/07/23 Range/Units 07:25 14:04 16:57 POC Glucose (mg/dL) 54 L 113 H (70-110) mg/dL Troponin I (0.000-0.034) ng/mL HDL Cholesterol 39.40 L (40.00-60.00) mg/dL 06/07/23 06/07/23 06/08/23 Range/Units 20:31 21:57 06:10 POC Glucose (mg/dL) 135 H 238 H (70-110) mg/dL Troponin I 0.168 H* (0.000-0.034) ng/mL HDL Cholesterol (40.00-60.00) mg/dL Microbiology - Last 24 Hours (Table) 06/06/23 12:46 Blood Culture - Preliminary Blood 06/06/23 12:31 Blood Culture - Preliminary Blood Assessment and Plan Assessment: 1. Right ankle/foot pain; history of recent right hip IT fracture with IM nail fixation Plan: 1. Right ankle/foot pain; history of recent right hip IT fracture with IM nail fixation - patient stable at bedside this morning. X-rays right ankle/foot negative for any fracture/dislocation. Incisions along right hip. Really want this time. Kendall are well aligned and intact. Right hip IM nail surgery performed 05/27/2023. Maintain Kendall in place at this time. Plan for removal as early as Sunday. Pain medication as needed. Weightbearing as tolerated with walker and assistance. We'll continue to be available as needed. 2. Appreciate medical management 3. Pain management - [place]; Tylenol 4. GI prophylaxis - Dulcolax; Protonix; senna 5. DVT prophylaxis - aspirin 6. PT/OT - weightbearing as tolerated with walker and assistance 7. Encourage incentive spirometer use Time with Patient: Less than 30
[2023-06-08 11:23] LABS: Basophils % (A) 0 %; Eosinophils # (A) 0.2 k/uL (0-0.7); Eosinophils % (A) 1 %; HCT 35.3 % (39.0-53.0); HGB 11.6 gm/dL (13.0-17.5); Lymphocytes # (A) 0.9 k/uL (1.0-4.8); Lymphocytes % (A) 7 %; MCH 30.7 pg (25.0-35.0); MCHC 32.8 g/dL (31.0-37.0); MCV 93.5 fL (80.0-100.0); Monocytes # (A) 0.6 k/uL (0-1.0); Monocytes % (A) 5 %; Neutrophils # (A) 9.7 k/uL (1.3-7.7); Neutrophils % (A) 85 %; Platelet Count 419 k/uL (150-450); RBC 3.78 m/uL (4.30-5.90); RDW 12.5 % (11.5-15.5); WBC 11.5 k/uL (3.8-10.6)
[2023-06-08 11:40] LABS: African American GFR (CKD) 82 (>60 ml/min/1.73 sqM); Anion Gap 12 mmol/L; Blood Urea Nitrogen 25 mg/dL (9-20); Calcium 8.3 mg/dL (8.4-10.2); Carbon Dioxide 18 mmol/L (22-30); Chloride 101 mmol/L (98-107); Glucose 253 mg/dL (74-99); Non-African American GFR(CKD) 71 (>60 ml/min/1.73 sqM); Potassium 3.6 mmol/L (3.5-5.1); Sodium 131 mmol/L (137-145)
[2023-06-08 12:34] LABS: Glucose,Whole Blood 286 mg/dL (70-110)
[2023-06-08 16:57] LABS: Glucose,Whole Blood 376 mg/dL (70-110)
--- NOTE | 2023-06-08 17:50 | P.PN ---
Subjective Progress Note Date: 06/08/23 HISTORY OF PRESENTING ILLNESS Patient is a 88-year-old male who presented to the ER with the right foot pain and right hip pain. On 05/27/2023 patient underwent a right hip intertr ochanteric nail fixation. He was discharged to [facility]. Patient also has history of type 2 diabetes, hypertension, also arthritis and pacemaker in 2007 for complete heart block. This time patient presented due to right hip pain. His labs showed a troponin of 0.16. His creatinine was 0.96, hemoglobin was 11.6 ECG showed ventricular paced rhythm with PVC REVIEW OF SYSTEMS 14 point review of system is negative except what is mentioned above in HPI. PHYSICAL EXAMINATION Vital signs reviewed. Head: Normocephalic. Eyes: Sclerae nonicteric. Neck: Brisk carotid upstroke, no jugular venous distention. Lungs: Poor inspiratory effort Heart: Regular rate and rhythm, S1-S2, no S3, no murmur or rub. Abdomen: Soft nontender, positive bowel sounds no organomegaly. Extremities: Pain and right high and ankle Alert oriented, normal mood and affect ASSESSMENT Status post fall with right intertrochanteric fracture status post internal fixation Complete heart block status post dual-chamber pacemaker Rhabdomyolysis status post fall Elevated troponin, likely due to recent rhabdomyolysis and postoperative state. His troponin has been trending down PLAN Recent echo from May 2023 shows an EF of 55%, enlarged left atrium, moderate mitral regurgitation, mild aortic stenosis, severe tricuspid regurgitation suggestive of pulmonary hypertension. At this time troponin elevation is noncardiac and most likely related to rhabdomyolysis and postoperative state. No further cardiac testing needed at this time. Cardiology team will sign off. Please reconsult us in case of any cushions. Objective - Vital Signs Vital signs: Vital Signs Temp 98.2 F 06/08/23 04:43 Pulse 64 06/08/23 08:00 Resp 16 06/08/23 08:00 BP 151/71 06/08/23 08:00 Pulse Ox 96 06/08/23 08:00 FiO2 Intake & Output 06/07/23 06/08/23 06/08/23 18:59 06:59 18:59 Intake Total 240 Output Total 515 Balance -515 240 Weight 71 kg Intake: Oral 240 Output: Urine 515 Other: Voiding Method Urinal # Voids 1 - Labs CBC & Chem 7: 06/08/23 10:48 06/08/23 10:47 Labs: Abnormal Lab Results - Last 24 Hours (Table) 06/07/23 06/07/23 06/08/23 Range/Units 20:31 21:57 06:10 WBC (3.8-10.6) k/uL RBC (4.30-5.90) m/uL Hgb (13.0-17.5) gm/dL Hct (39.0-53.0) % Neutrophils # (1.3-7.7) k/uL Lymphocytes # (1.0-4.8) k/uL Sodium (137-145) mmol/L Carbon Dioxide (22-30) mmol/L BUN (9-20) mg/dL Glucose (74-99) mg/dL POC Glucose (mg/dL) 135 H 238 H (70-110) mg/dL Hemoglobin A1c (<=6.0) % Calcium (8.4-10.2) mg/dL Troponin I 0.168 H* (0.000-0.034) ng/mL 06/08/23 06/08/23 06/08/23 Range/Units 10:47 10:48 10:48 WBC 11.5 H (3.8-10.6) k/uL RBC 3.78 L (4.30-5.90) m/uL Hgb 11.6 L (13.0-17.5) gm/dL Hct 35.3 L (39.0-53.0) % Neutrophils # 9.7 H (1.3-7.7) k/uL Lymphocytes # 0.9 L (1.0-4.8) k/uL Sodium 131 L (137-145) mmol/L Carbon Dioxide 18 L (22-30) mmol/L BUN 25 H (9-20) mg/dL Glucose 253 H (74-99) mg/dL POC Glucose (mg/dL) (70-110) mg/dL Hemoglobin A1c 10.8 H (<=6.0) % Calcium 8.3 L (8.4-10.2) mg/dL Troponin I (0.000-0.034) ng/mL 06/08/23 06/08/23 Range/Units 12:31 16:55 WBC (3.8-10.6) k/uL RBC (4.30-5.90) m/uL Hgb (13.0-17.5) gm/dL Hct (39.0-53.0) % Neutrophils # (1.3-7.7) k/uL Lymphocytes # (1.0-4.8) k/uL Sodium (137-145) mmol/L Carbon Dioxide (22-30) mmol/L BUN (9-20) mg/dL Glucose (74-99) mg/dL POC Glucose (mg/dL) 286 H 376 H (70-110) mg/dL Hemoglobin A1c (<=6.0) % Calcium (8.4-10.2) mg/dL Troponin I (0.000-0.034) ng/mL Microbiology - Last 24 Hours (Table) 06/06/23 12:46 Blood Culture - Preliminary Blood 06/06/23 12:31 Blood Culture - Preliminary Blood
[2023-06-08] MEDS ORDERED: DEXTROSE 50% SYRINGE 50 ML IVP PRN ×2 (18:12)
--- NOTE | 2023-06-08 18:28 | P.HPIM ---
History of Present Illness H&P Date: 06/07/23 This is an 88-year-old gentleman with past medical history significant for recent Right hip IT fracture status post fall, right hip IM Nail, discharged on 05/30/2023 to [facility] subacute rehab. and multiple other medical issues. On that prior visit, patient presented with rhabdomyolysis, acute hypoxic respiratory failure secondary to atelectasis and acute bronchitis, hyperglycemia with A1c of 11.9 and multiple other medical issues. Return to the ER with significant postop pain right lower extremity, tested positive for Covid-19. Denies any chest pain, palpitations or shortness of breath. Troponins elevated/higher than previous admission: 0.355, 0.334, 0.289. Maintaining O2 sats in the 90s on room air. Denies nausea, vomiting or diarrhea. Denies abdominal pain. Radiology studies reviewed by orthopedic surgery, no further surgical intervention recommended, continue with prior pain management previously recommended.Afebrile, WBC 13.2, hemoglobin 11.0, platelets 327, sodium 132, pota ssium 3.5, bicarb 22, BUN 44, creatinine 1.2. Lactic acid 0.7, total bili 1.4, alk phos 167. UA reporting 18 WBCs, moderate leukocyte esterases, negative nitrates and trace protein. Glucose 120s to 130s. Chest x-ray reporting small effusions posterior on the lateral projection, pulmonary venous congestion without overt failure. Review of Systems ROS Statement: Those systems with pertinent positive or pertinent negative responses have been documented in the HPI. ROS Other: All systems not noted in ROS Statement are negative. Past Medical History Past Medical History: Diabetes Mellitus, Hypertension, Osteoarthritis (OA) Additional Past Medical History / Comment(s): hiatal hernia, History of Any Multi-Drug Resistant Organisms: None Reported Past Surgical History: Joint Replacement, Pacemaker Additional Past Surgical History / Comment(s): saeid cataracts rt hip surgery 3-4 days ago. Past Anesthesia/Blood Transfusion Reactions: No Reported Reaction Type of Cardiac Device: Permanent Pacemaker Device Placement Date:: 2007 Past Psychological History: No Psychological Hx Reported Smoking Status: Former smoker Past Alcohol Use History: None Reported Additional Past Alcohol Use History / Comment(s): quit smoking 50 yrs, smoked for 15 yrs- mostly pipe or cigar Past Drug Use History: None Reported - Past Family History Mother Family Medical History: Cancer Father Family Medical History: Cancer Medications and Allergies Home Medications Medication Instructions Recorded Confirmed Type Warfarin [Coumadin] 5 mg PO DAILY@1700 03/15/16 06/06/23 History amLODIPine [Norvasc] 5 mg PO DAILY@0800 03/15/16 06/06/23 History atenoloL [Tenormin] 25 mg PO DAILY@0800 03/15/16 06/06/23 History hydrALAZINE HCL [Apresoline] 50 mg PO Q8HR@0600,1400,2200 03/15/16 06/06/23 History hydroCHLOROthiazide [Hydrodiuril] 25 mg PO DAILY@0800 03/15/16 06/06/23 History lisinopriL [Zestril] 20 mg PO BID@0800,1700 03/15/16 06/06/23 History Ipratropium-Albuterol Nebulize 3 ml INHALATION Q4H PRN each 05/29/23 06/06/23 Rx [Duoneb 0.5 mg-3 mg/3 ml Soln] Ipratropium-Albuterol Nebulize 3 ml INHALATION RT-QID each 05/29/23 06/06/23 Rx [Duoneb 0.5 mg-3 mg/3 ml Soln] Acetaminophen Tab [Tylenol] 650 mg PO Q6HR PRN tab 05/30/23 06/06/23 Rx HYDROcodone/APAP 7.5-325MG [[place] 1 tab PO Q6HR PRN #24 tab 05/30/23 06/06/23 Rx 7.5-325] Atorvastatin [Lipitor] 40 mg PO HS 06/06/23 06/06/23 History Budesonide/Formoterol Fumarate 2 puff INHALATION RT-BID@0800,1700 06/06/23 06/06/23 History [Symbicort 80-4.5 Mcg Inhaler] Doxycycline Hyclate 100 mg PO BID@0800,1700 06/06/23 06/06/23 History Glucerna Shake 120 - 237 ml PO TID@0800,1200,1700 06/06/23 06/06/23 History INSULIN ASPART (NovoLOG) [NovoLOG 8 unit SQ AC-TID 06/06/23 06/06/23 History (formulary)] INSULIN LISPRO (HumaLOG) [humaLOG] See Protocol SQ ACHS 06/06/23 06/06/23 History Insulin Detemir (Levemir) [Levemir] 32 unit SQ DAILY@0700 06/06/23 06/06/23 History Magnesium Hydroxide [Milk of 7,200 mg PO DAILY PRN 06/06/23 06/06/23 History Magnesia Concentrate] Na Phos,M-B/Na Phos,Di-Ba [Fleet 133 ml RECTAL DAILY PRN 06/06/23 06/06/23 Hist ory Adult] Nystatin [Nystatin Oral Susp] 500,000 unit PO QID 06/06/23 06/06/23 History Sennosides-Docusate Sodium 2 tab PO HS 06/06/23 06/06/23 History [Senokot-S] Tamsulosin [Flomax] 0.4 mg PO DAILY@0800 06/06/23 06/06/23 History bisacodyL [Dulcolax] 10 mg RECTAL DAILY PRN 06/06/23 06/06/23 History guaiFENesin [guaiFENesin ER] 600 mg PO Q12HR@0800,2100 06/06/23 06/06/23 History Allergies Allergy/AdvReac Type Severity Reaction Status Date / Time No Known Allergies Allergy Verified 06/06/23 13:14 Physical Exam Vitals: Vital Signs Temp Pulse Pulse Resp BP BP Pulse Ox 06/07/23 18:58 97.3 F L 97 16 152/71 97 06/07/23 17:45 60 22 149/77 98 06/07/23 16:03 60 18 149/77 100 06/07/23 14:18 97.6 F 60 16 149/77 94 L 06/07/23 11:00 79 18 160/80 96 06/07/23 07:35 60 18 140/88 98 06/07/23 03:49 60 16 151/76 97 06/07/23 03:27 60 16 144/89 93 L 06/07/23 00:15 60 16 137/69 98 PHYSICAL EXAM: VITAL SIGNS: [As above] GENERAL: Alert and oriented 3, lying in bed, planing of hip pain HEENT: Normocephalic, Conjunctivae normal. eyes normal. MMM. NECK: Supple, No JVD. CARDIOVASCULAR: S1, S2 regular.No murmur RESPIRATION: Unlabored, equal air entry, Breath sounds diminished in the bases. ABDOMEN: Soft, nondistended, nontender . No guarding. +Bowel sounds. LEGS: Right lower extremity dressings clean dry and intact. No edema. no swelling , no clubbing, no cyanosis, positive DP pulse NERVOUS SYSTEM: Cranial N 2-12 grossly normal.No focal deficits.Strength and sensation grossly intact. Skin: Warm and dry, no rash. Results CBC & Chem 7: 06/08/23 10:48 06/08/23 10:47 Labs: Abnormal Lab Results - Last 24 Hours (Table) 06/06/23 06/06/23 06/07/23 Range/Units 19:18 21:54 07:25 POC Glucose (mg/dL) (70-110) mg/dL Troponin I 0.334 H* 0.289 H* (0.000-0.034) ng/mL HDL Cholesterol 39.40 L (40.00-60.00) mg/dL 06/07/23 06/07/23 Range/Units 14:04 16:57 POC Glucose (mg/dL) 54 L 113 H (70-110) mg/dL Troponin I (0.000-0.034) ng/mL HDL Cholesterol (40.00-60.00) mg/dL Thrombosis Risk Factor Assmnt - Choose All That Apply Each Factor Represents 1 point: Serious lung disease incl. pneumonia (< 1month) Each Risk Factor Represents 3 Points: Age 75 years or older Each Risk Factor Represents 5 Points: Hip, pelvis, or leg fracture (< 1 month) Thrombosis Risk Factor Assessment Total Risk Factor Score: 9 Thrombosis Risk Factor Assessment Level: High Risk Assessment and Plan Assessment: Acute COVID-19 infection Acute UTI, possible, culture pending Uncontrolled postoperative pain in a patient with recent Right hip IT fracture status post fall, right hip IM Nail on 05/27/2023. Discharge to subacute rehab on 05/30/2023. History of recent Rhabdomyolysis secondary to the above Elevated troponins, increased from prior admission, cardiology following History of postoperative hypoxic respiratory failure secondary to all the above plus atelectasis and acute bronchitis which patient completed treatment with Augmentin Diabetes mellitus, uncontrolled, hemoglobin A1c 11.9 ,hyperglycemic, further diabetic teaching outpatient in clinic with PCP. 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 Persistent atrial fibrillation on Coumadin COPD Prior nicotine dependence Plan continue on current medication regime ,monitoring and symptomatic treatment. Pain management. COVID cocktail with vitamin supplements. ID consulted. Maintain empiric IV antibiotics of ceftriaxone , urine culture pending .Cardiology consult in place, regarding elevated troponins, recommendations pending. Orthopedics surgery following. Recently notified of patient having difficulty swallowing, speech therapy consulted. Prognosis guarded given multiple complex medical issues. The impression and plan of care has been dictated as directed. : I performed a history and examination of this patient, discussed the same with the dictator. I agree with the dictator's note ,documented as a scribe. Any additional findings or plans will be noted.
[2023-06-08] MEDS ORDERED: MAGNESIUM HYDROXIDE 2,400 MG/30 ML CUP PO PRN (18:33)
--- NOTE | 2023-06-08 18:55 | P.PN ---
Subjective Progress Note Date: 06/08/23 H&P Date: 06/07/23 This is an 88-year-old gentleman with past medical history significant for recent Right hip IT fracture status post fall, right hip IM Nail, discharged on 05/30/2023 to [facility] subacute rehab. and multiple other medical issues. On that prior visit, patient presented with rhabdomyolysis, acute hypoxic respiratory failure secondary to atelectasis and acute bronchitis, hyperglycemia with A1c of 11.9 and multiple other medical issues. Return to the ER with significant postop pain right lower extremity, tested positive for Covid-19. Denies any chest pain, palpitations or shortness of breath. Troponins elevated/higher than previous admission: 0.355, 0.334, 0.289. Maintaining O2 sats in the 90s on room air. Denies nausea, vomiting or diarrhea. Denies abdominal pain. Radiology studies reviewed by orthopedic surgery, no further surgical intervention r ecommended, continue with prior pain management previously recommended.Afebrile, WBC 13.2, hemoglobin 11.0, platelets 327, sodium 132, potassium 3.5, bicarb 22, BUN 44, creatinine 1.2. Lactic acid 0.7, total bili 1.4, alk phos 167. UA reporting 18 WBCs, moderate leukocyte esterases, negative nitrates and trace protein. Glucose 120s to 130s. Chest x-ray reporting small effusions posterior on the lateral projection, pulmonary venous congestion without overt failure. 06/08/2023 evaluated by orthopedic surgery, recommending activity of weightbearing as tolerated with walker and assistance .continues complaining of ongoing postoperative pain-right lower extremity. Blood sugars running higher this morning, in the low 200s. Denies chest pain, palpitations or shortness of breath. Troponin last night decreased to 0.168. Maintaining O2 sats in the mid to high 90s on room air. Aspiration precautions maintained, Speech therapy evaluation pending. Labs pending. Objective - Vital Signs Vital signs: Vital Signs Temp 98.2 F 06/08/23 04:43 Pulse 64 06/08/23 08:00 Resp 16 06/08/23 08:00 BP 151/71 06/08/23 08:00 Pulse Ox 96 06/08/23 08:00 FiO2 Intake & Output 10/12/23 10/13/23 10/13/23 18:59 06:59 18:59 Intake Total 358 Output Total 515 Balance -515 358 Weight 71 kg Intake: Oral 358 Output: Urine 515 Other: Voiding Method Urinal # Voids 1 - Exam PHYSICAL EXAM: VITAL SIGNS: [As above] GENERAL: Alert and oriented 3, lying in bed, complaining of hip pain HEENT: Normocephalic, Conjunctivae normal. eyes normal. MMM. NECK: Supple, No JVD. CARDIOVASCULAR: S1, S2 regular.No murmur RESPIRATION: Unlabored, equal air entry, Breath sounds diminished in the bases. ABDOMEN: Soft, nondistended, nontender . No guarding. +Bowel sounds. LEGS: Right lower extremity dressings clean dry and intact. Mild ecchymosis, No edema. no swelling , no clubbing, no cyanosis, positive DP pulse NERVOUS SYSTEM: Cranial N 2-12 grossly normal.No focal deficits.Strength and sensation grossly intact. Skin: Warm and dry, no rash. - Labs CBC & Chem 7: 06/08/23 10:48 06/08/23 10:47 Labs: Abnormal Lab Results - Last 24 Hours (Table) 06/07/23 06/07/23 06/08/23 Range/Units 20:31 21:57 06:10 WBC (3.8-10.6) k/uL RBC (4.30-5.90) m/uL Hgb (13.0-17.5) gm/dL Hct (39.0-53.0) % Neutrophils # (1.3-7.7) k/uL Lymphocytes # (1.0-4.8) k/uL Sodium (137-145) mmol/L Carbon Dioxide (22-30) mmol/L BUN (9-20) mg/dL Glucose (74-99) mg/dL POC Glucose (mg/dL) 135 H 238 H (70-110) mg/dL Hemoglobin A1c (<=6.0) % Calcium (8.4-10.2) mg/dL Troponin I 0.168 H* (0.000-0.034) ng/mL 06/08/23 06/08/23 06/08/23 Range/Units 10:47 10:48 10:48 WBC 11.5 H (3.8-10.6) k/uL RBC 3.78 L (4.30-5.90) m/uL Hgb 11.6 L (13.0-17.5) gm/dL Hct 35.3 L (39.0-53.0) % Neutrophils # 9.7 H (1.3-7.7) k/uL Lymphocytes # 0.9 L (1.0-4.8) k/uL Sodium 131 L (137-145) mmol/L Carbon Dioxide 18 L (22-30) mmol/L BUN 25 H (9-20) mg/dL Glucose 253 H (74-99) mg/dL POC Glucose (mg/dL) (70-110) mg/dL Hemoglobin A1c 10.8 H (<=6.0) % Calcium 8.3 L (8.4-10.2) mg/dL Troponin I (0.000-0.034) ng/mL 06/08/23 06/08/23 Range/Units 12:31 16:55 WBC (3.8-10.6) k/uL RBC (4.30-5.90) m/uL Hgb (13.0-17.5) gm/dL Hct (39.0-53.0) % Neutrophils # (1.3-7.7) k/uL Lymphocytes # (1.0-4.8) k/uL Sodium (137-145) mmol/L Carbon Dioxide (22-30) mmol/L BUN (9-20) mg/dL Glucose (74-99) mg/dL POC Glucose (mg/dL) 286 H 376 H (70-110) mg/dL Hemoglobin A1c (<=6.0) % Calcium (8.4-10.2) mg/dL Troponin I (0.000-0.034) ng/mL Microbiology - Last 24 Hours (Table) 06/06/23 12:46 Blood Culture - Preliminary Blood 06/06/23 12:31 Blood Culture - Preliminary Blood Assessment and Plan Assessment: Acute COVID-19 infection Acute UTI, possible, culture pending Uncontrolled postoperative pain in a patient with recent Right hip IT fracture status post fall, right hip IM Nail on 05/27/2023. Discharge to subacute rehab on 05/30/2023. History of recent Rhabdomyolysis secondary to the above Elevated troponins, increased from prior admission, cardiology following History of postoperative hypoxic respiratory failure secondary to all the above plus atelectasis and acute bronchitis which patient completed treatment with Augmentin Diabetes mellitus, uncontrolled, hemoglobin A1c 10.8 ,hyperglycemic, further diabetic teaching outpatient in clinic with PCP. 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 Persistent atrial fibrillation on Coumadin COPD Prior nicotine dependence Hyponatremia Plan continue on current medication regime ,monitoring and symptomatic treatment. Labs pending. Pain management-further evaluation as per orthopedic surgery. COVID cocktail . Aggressive pulmonary toileting with incentive spirometer reinforced. Coumadin per pharmacy dosing.Urine culture pending .Cardiology recommendations pending. Lantus dose adjusted , close monitoring of blood sugars, Aspiration precautions.Speech therapy recmmendations pending. Prognosis guarded given multiple complex medical issues. The impression and plan of care has been dictated as directed. : I performed a history and examination of this patient, discussed the same with the dictator. I agree with the dictator's note ,documented as a scribe. Any additional findings or plans will be noted.
[2023-06-08 19:45] LABS: INR 3.3 (<1.2)
[2023-06-08] MEDS ORDERED: WARFARIN 0.5 MG TAB PO ONE (20:00)
[2023-06-08 20:24] LABS: Glucose,Whole Blood 346 mg/dL (70-110)
--- NOTE | 2023-06-08 21:48 | P.CONS ---
History of Present Illness - Reason for Consult Consult date: 06/08/23 - History of Present Illness Patient is a 88-year-old male who recently did have a fall with resultant right hip fracture for which the patient did have a right hip intramedullary nail fixation on 05/27/2023 the patient was stabilized and was subsequently [facility] patient has been brought back to the hospital 2 days ago in this patient who was recently diagnosed with pneumonia at the jail and was started with the doxycycline patient on presentation to the hospital was afebrile and no fever has been recorded subsequently patient was not tachycardic hypotensive or hypoxic and currently not on any supplemental oxygen patient did have vital of 11.5 creatinine was normal liver enzymes are normal troponins are elevated urine was mildly positive patient did tested positive for COVID blood cultures are currently pending patient did have a chest x-ray on admission small effusion seen posteriorly pulmonary vascular congestion without overt failure x-ray of the foot was negative for any fracture dislocation infectious he was consulted for his positive COVID test patient did have a history of COVID vaccination and mention he was tested twice at the jail and was negative for COVID- 19 patient is currently breathing comfortably did vomit but denies having any URI symptoms mention he did have a slight sore throat few days ago patient denies having any chest pain or cough no nausea vomiting no abdominal pain and no diarrhea Past Medical History Past Medical History: Diabetes Mellitus, Hypertension, Osteoarthritis (OA) Additional Past Medical History / Comment(s): hiatal hernia, History of Any Multi-Drug Resistant Organisms: None Reported Past Surgical History: Joint Replacement, Pacemaker Additional Past Surgical History / Comment(s): saeid cataracts rt hip surgery 3-4 days ago. Past Anesthesia/Blood Transfusion Reactions: No Reported Reaction Type of Cardiac Device: Permanent Pacemaker Device Placement Date:: 2007 Past Psychological History: No Psychological Hx Reported Smoking Status: Former smoker Past Alcohol Use History: None Reported Additional Past Alcohol Use History / Comment(s): quit smoking 50 yrs, smoked for 15 yrs- mostly pipe or cigar Past Drug Use History: None Reported - Past Family History Mother Family Medical History: Cancer Father Family Medical History: Cancer Medications and Allergies Home Medications Medication Instructions Recorded Confirmed Type Warfarin [Coumadin] 5 mg PO DAILY@1700 03/15/16 06/06/23 History amLODIPine [Norvasc] 5 mg PO DAILY@0800 03/15/16 06/06/23 History atenoloL [Tenormin] 25 mg PO DAILY@0800 03/15/16 06/06/23 History hydrALAZINE HCL [Apresoline] 50 mg PO Q8HR@0600,1400,2200 03/15/16 06/06/23 History hydroCHLOROthiazide [Hydrodiuril] 25 mg PO DAILY@0800 03/15/16 06/06/23 History lisinopriL [Zestril] 20 mg PO BID@0800,1700 03/15/16 06/06/23 History Ipratropium-Albuterol Nebulize 3 ml INHALATION Q4H PRN each 05/29/23 06/06/23 Rx [Duoneb 0.5 mg-3 mg/3 ml Soln] Ipratropium-Albuterol Nebulize 3 ml INHALATION RT-QID each 05/29/23 06/06/23 Rx [Duoneb 0.5 mg-3 mg/3 ml Soln] Acetaminophen Tab [Tylenol] 650 mg PO Q6HR PRN tab 05/30/23 06/06/23 Rx HYDROcodone/APAP 7.5-325MG [[place] 1 tab PO Q6HR PRN #24 tab 05/30/23 06/06/23 Rx 7.5-325] Atorvastatin [Lipitor] 40 mg PO HS 06/06/23 06/06/23 History Budesonide/Formoterol Fumarate 2 puff INHALATION RT-BID@0800,1700 06/06/23 06/06/23 History [Symbicort 80-4.5 Mcg Inhaler] Doxycycline Hyclate 100 mg PO BID@0800,1700 06/06/23 06/06/23 History Glucerna Shake 120 - 237 ml PO TID@0800,1200,1700 06/06/23 06/06/23 History INSULIN ASPART (NovoLOG) [[place]ovo[place] 8 unit SQ AC-TID 06/06/23 06/06/23 History (formulary)] INSULIN LISPRO (HumaLOG) [humaLOG] See Protocol SQ ACHS 06/06/23 06/06/23 History Insulin Detemir (Levemir) [Levemir] 32 unit SQ DAILY@0700 06/06/23 06/06/23 History Magnesium Hydroxide [Milk of 7,200 mg PO DAILY PRN 06/06/23 06/06/23 History Magnesia Concentrate] Na Phos,M-B/Na Phos,Di-Ba [Fleet 133 ml RECTAL DAILY PRN 06/06/23 06/06/23 History Adult] Nystatin [Nystatin Oral Susp] 500,000 unit PO QID 06/06/23 06/06/23 History Sennosides-Docusate Sodium 2 tab PO HS 06/06/23 06/06/23 History [Senokot-S] Tamsulosin [Flomax] 0.4 mg PO DAILY@0800 06/06/23 06/06/23 History bisacodyL [Dulcolax] 10 mg RECTAL DAILY PRN 06/06/23 06/06/23 History guaiFENesin [guaiFENesin ER] 600 mg PO Q12HR@0800,2100 06/06/23 06/06/23 History Allergies Allergy/AdvReac Type Severity Reaction Status Date / Time No Known Allergies Allergy Verified 06/06/23 13:14 Physical Exam Vitals: Vital Signs Temp Pulse Pulse Resp BP BP Pulse Ox 06/08/23 08:00 64 16 151/71 96 06/08/23 04:43 98.2 F 58 L 16 151/69 98 06/08/23 02:00 60 06/08/23 01:11 60 16 157/73 98 06/07/23 21:48 97.6 F 67 16 154/70 97 06/07/23 20:00 67 06/07/23 18:58 97.3 F L 97 16 152/71 97 06/07/23 17:45 60 22 149/77 98 06/07/23 16:03 60 18 149/77 100 06/07/23 14:18 97.6 F 60 16 149/77 94 L Intake and Output 06/07/23 06/08/23 06/08/23 22:59 06:59 14:59 Output Total 75 440 Balance -75 -440 Output: Urine 75 440 Other: Voiding Method Urinal Urinal # Voids 1 1 Weight 71 kg Results CBC & Chem 7: 06/08/23 10:48 06/08/23 10:47 Labs: Abnormal Lab Results - Last 24 Hours (Table) 06/07/23 06/07/23 06/07/23 Range/Units 07:25 14:04 16:57 WBC (3.8-10.6) k/uL RBC (4.30-5.90) m/uL Hgb (13.0-17.5) gm/dL Hct (39.0-53.0) % Neutrophils # (1.3-7.7) k/uL Lymphocytes # (1.0-4.8) k/uL POC Glucose (mg/dL) 54 L 113 H (70-110) mg/dL Troponin I (0.000-0.034) ng/mL HDL Cholesterol 39.40 L (40.00-60.00) mg/dL 06/07/23 06/07/23 06/08/23 Range/Units 20:31 21:57 06:10 WBC (3.8-10.6) k/uL RBC (4.30-5.90) m/uL Hgb (13.0-17.5) gm/dL Hct (39.0-53.0) % Neutrophils # (1.3-7.7) k/uL Lymphocytes # (1.0-4.8) k/uL POC Glucose (mg/dL) 135 H 238 H (70-110) mg/dL Troponin I 0.168 H* (0.000-0.034) ng/mL HDL Cholesterol (40.00-60.00) mg/dL 06/08/23 Range/Units 10:48 WBC 11.5 H (3.8-10.6) k/uL RBC 3.78 L (4.30-5.90) m/uL Hgb 11.6 L (13.0-17.5) gm/dL Hct 35.3 L (39.0-53.0) % Neutrophils # 9.7 H (1.3-7.7) k/uL Lymphocytes # 0.9 L (1.0-4.8) k/uL POC Glucose (mg/dL) (70-110) mg/dL Troponin I (0.000-0.034) ng/mL HDL Cholesterol (40.00-60.00) mg/dL Microbiology - Last 24 Hours (Table) 06/06/23 12:46 Blood Culture - Preliminary Blood 06/06/23 12:31 Blood Culture - Preliminary Blood Assessment and Plan Plan: 1patient was in the hospital with weakness not feeling well which is likely multifactorial in this patient who tested positive for COVID-19 patient did have mild URI symptoms and no significant fever or hypoxemia or need for supplemental oxygen chest x-ray did not show any groundglass opacities, the patient not behaving as COVID-19 pneumonia and treatment will be mostly supportive patient will not qualify for remdesivir or steroids 2-we will check a CRP and a procalcitonin 3-patient is on zinc vitamin C and Coumadin to continue 4-droplet isolation Family at the bedside questions were answered We will follow on clinical condition and cultures to further adjust medication if needed Thank you for this consultation we will follow the patient along with you Dictation was produced using [employer] dictation software. please excuse any grammatical, word or spelling errors. Time with Patient: Greater than 30
[2023-06-08] MEDS: ATORVASTATIN 40 MG TAB PO SCH (22:11)
[2023-06-08] MEDS: SENNOSIDES-DOCUSATE SODIUM 1 EACH TAB PO SCH (22:12)
[2023-06-08] MEDS: polyethylene glycoL 3350 17 GM POWD.PACK PO SCH (22:12)
[2023-06-08] MEDS: amLODIPine 5 MG TAB PO SCH (22:12)
[2023-06-08] MEDS: guaiFENesin 600 MG TABLET.ER PO SCH (22:13)
[2023-06-09] MEDS: hydrALAZINE HCL 50 MG TAB PO SCH ×4 (01:41→17:13)
[2023-06-09] MEDS: DEXTROSE 5%-0.45% NACL 1,000 ML IV SCH ×3 (03:54→20:44)
[2023-06-09 06:19] LABS: Glucose,Whole Blood 166 mg/dL (70-110)
[2023-06-09] MEDS: INSULIN ASPART (NovoLOG) 100 UNIT/ML VIAL SQ SCH ×7 (06:53→21:31)
[2023-06-09] MEDS ORDERED: INSULIN ASPART (NovoLOG) 100 UNIT/ML VIAL SQ SCH (07:30)
[2023-06-09] MEDS: CHOLECALCIFEROL 25 MCG (1000 IU) TABLET PO SCH (08:42)
[2023-06-09] MEDS: IBUPROFEN 600 MG TAB PO SCH ×4 (08:42→21:30)
[2023-06-09] MEDS: PANTOPRAZOLE 40 MG/10 ML VIAL IVP SCH (08:42)
[2023-06-09] MEDS: INSULIN DETEMIR (LEVEMIR) 100 UNIT/ML SYR SQ SCH (08:42)
[2023-06-09] MEDS: ASPIRIN 325 MG TAB PO SCH (08:42)
[2023-06-09] MEDS: amLODIPine 5 MG TAB PO SCH (08:43)
[2023-06-09] MEDS: TAMSULOSIN 0.4 MG CAP.ER.24H PO SCH (08:43)
[2023-06-09] MEDS: polyethylene glycoL 3350 17 GM POWD.PACK PO SCH (08:43)
[2023-06-09] MEDS: ASCORBIC ACID 500 MG TAB PO SCH ×2 (08:43→21:30)
[2023-06-09] MEDS: atenoloL 25 MG TAB PO SCH (08:43)
[2023-06-09] MEDS: guaiFENesin 600 MG TABLET.ER PO SCH ×2 (08:43→21:30)
[2023-06-09] MEDS: ZINC SULFATE 220 MG CAP PO SCH (08:43)
[2023-06-09] MEDS: ALBUTEROL HFA INHALER INHALATION SCH ×4 (08:50→19:07)
[2023-06-09] MEDS: SYMBICORT 80-4.5 MCG INHALER INHALATION SCH ×2 (08:50→19:06)
[2023-06-09 09:08] LABS: African American GFR (CKD) 82 (>60 ml/min/1.73 sqM); Anion Gap 10 mmol/L; Blood Urea Nitrogen 18 mg/dL (9-20); Calcium 8.6 mg/dL (8.4-10.2); Carbon Dioxide 22 mmol/L (22-30); Chloride 104 mmol/L (98-107); Glucose 118 mg/dL (74-99); Non-African American GFR(CKD) 71 (>60 ml/min/1.73 sqM); Potassium 3.3 mmol/L (3.5-5.1); Sodium 136 mmol/L (137-145)
[2023-06-09 09:13] LABS: INR 2.1 (<1.2); Prothrombin Time 20.6 sec (10.0-12.5)
[2023-06-09 11:58] LABS: Glucose,Whole Blood 117 mg/dL (70-110)
[2023-06-09] MEDS ORDERED: Acetaminophen-Codeine 300-30mg TAB PO STA (12:58)
[2023-06-09] MEDS: HYDROmorphone 0.5 MG/0.5 ML SYRINGE IVP PRN (13:02)
[2023-06-09 13:20] VITALS: BMI 23.1
--- NOTE | 2023-06-09 13:52 | P.PN ---
Subjective This is an 88-year-old gentleman with past medical history significant for recent Right hip IT fracture status post fall, right hip IM Nail, discharged on 05/30/2023 to [facility] subacute rehab. and multiple other medical issues. On that prior visit, patient presented with rhabdomyolysis, acute hypoxic respiratory failure secondary to atelectasis and acute bronchitis, hyperglycemia with A1c of 11.9 and multiple other medical issues. Return to the ER with significant postop pain right lower extremity, tested positive for Covid-19. Denies any chest pain, palpitations or shortness of breath. Troponins elevated/higher than previous admission: 0.355, 0.334, 0.289. Maintaining O2 sats in the 90s on room air. Denies nausea, vomiting or diarrhea. Denies abdominal pain. Radiology studies reviewed by orthopedic surgery, no further surgical intervention recommended, continue with prior pain management previously recommended.Afebrile, WBC 13.2, hemoglobin 11.0, platelets 327, sodium 132, potassium 3.5, bicarb 22, BUN 44, creatinine 1.2. Lactic acid 0.7, total bili 1.4, alk phos 167. UA reporting 18 WBCs, moderate leukocyte esterases, negative nitrates and trace protein. Glucose 120s to 130s. Chest x-ray reporting small effusions posterior on the lateral projection, pulmonary venous congestion without overt failure. 06/08/2023 evaluated by orthopedic surgery, recommending activity of weightbearing as tolerated with walker and assistance .continues complaining of ongoing postoperative pain-right lower extremity. Blood sugars running higher this morning, in the low 200s. Denies chest pain, palpitations or shortness of breath. Troponin last night decreased to 0.168. Maintaining O2 sats in the mid to high 90s on room air. Aspiration precautions maintained, Speech therapy evaluation pending. Labs pending. 06/09/2023 This is a pleasant 88 years old male who presents initially with upper respiratory signs symptoms secondary to call with infection. His been treated with multiple vitamins. Also is on ceftriaxone for urinary tract infection. Pickle Sorter evaluated the patient for high troponin and currently is on aspirin 325 mg. Also his INR is therapeutic today 2.1 and he is going to receive 5 mg of Coumadin ( confirmed with the daughter at bedside and she told me he takes Coumadin for his heart disease) Objective - Vital Signs Vital signs: Vital Signs Temp 97.9 F 06/09/23 08:00 Pulse 67 06/09/23 08:00 Resp 18 06/09/23 11:32 BP 125/76 06/09/23 08:00 Pulse Ox 96 06/09/23 08:00 FiO2 Intake & Output 06/08/23 06/09/23 06/09/23 18:59 06:59 18:59 Intake Total 358 890 118 Output Total 400 500 Balance 358 490 -382 Weight 71 kg Intake: Intake, IV Titration 640 Amount Dextrose 5%-0.45% NaCl 1, 640 000 ml @ 80 mls/hr IV . [id number] [facility] Rx#:[id number] Oral 358 250 118 Output: Urine 400 500 Uretheral (Danielle) 350 Other: Voiding Method Toilet Urinal # Voids 2 # Bowel Movements 1 - Labs CBC & Chem 7: 06/08/23 10:48 06/09/23 07:57 Labs: Abnormal Lab Results - Last 24 Hours (Table) 06/08/23 06/08/23 06/08/23 Range/Units 10:48 16:55 19:09 PT 32.0 H (10.0-12.5) sec INR 3.3 H (<1.2) Sodium (137-145) mmol/L Potassium (3.5-5.1) mmol/L Glucose (74-99) mg/dL POC Glucose (mg/dL) 376 H (70-110) mg/dL Hemoglobin A1c 10.8 H (<=6.0) % 06/08/23 06/09/23 06/09/23 Range/Units 20:23 06:17 07:57 PT (10.0-12.5) sec INR (<1.2) Sodium 136 L (137-145) mmol/L Potassium 3.3 L (3.5-5.1) mmol/L Glucose 118 H (74-99) mg/dL POC Glucose (mg/dL) 346 H 166 H (70-110) mg/dL Hemoglobin A1c (<=6.0) % 06/09/23 06/09/23 Range/Units 07:57 11:43 PT 20.6 H (10.0-12.5) sec INR 2.1 H (<1.2) Sodium (137-145) mmol/L Potassium (3.5-5.1) mmol/L Glucose (74-99) mg/dL POC Glucose (mg/dL) 117 H (70-110) mg/dL Hemoglobin A1c (<=6.0) % Microbiology - Last 24 Hours (Table) 06/06/23 12:46 Blood Culture - Preliminary Blood 06/06/23 12:31 Blood Culture - Preliminary Blood Assessment and Plan Assessment: Acute COVID-19 infection Acute UTI, possible, culture pending Uncontrolled postoperative pain in a patient with recent Right hip IT fracture status post fall, right hip IM Nail on 05/27/2023. Discharge to subacute rehab on 05/30/2023. History of recent Rhabdomyolysis secondary to the above Elevated troponins, increased from prior admission, cardiology following History of postoperative hypoxic respiratory failure secondary to all the above plus atelectasis and acute bronchitis which patient completed treatment with Augmentin Diabetes mellitus, uncontrolled, hemoglobin A1c 10.8 ,hyperglycemic, further diabetic teaching outpatient in clinic with PCP. 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 Persistent atrial fibrillation on Coumadin COPD Prior nicotine dependence Hyponatremia Plan: Continue with ceftriaxone D5 half-normal saline at 80 Continue with vitamin C, vitamin D and zinc Continue with warfarin for a fib Patient is on aspirin Cardiology, infectious disease and orthopedic team consult Labs and medication were reviewed.. Continue same treatment. Continue with symptomatic treatment. Resume home medication. Monitor labs and vitals. DVT and GI prophylaxis. Further recommendations as per clinical course of the patient DVT prophylaxis: Warfarin GI Prophylaxis: ppi PT/OT: rehab Prognosis is guarded
--- NOTE | 2023-06-09 15:14 | P.PN ---
Subjective Progress Note Date: 06/09/23 Principal diagnosis: Covid 19 Patient is a 88-year-old male who recently did have a fall with resultant right hip fracture for which the patient did have a right hip intr amedullary nail fixation on 05/27/2023 the patient was stabilized and was subsequently [facility] patient has been brought back to the hospital for evaluation of her weakness not feeling well the patient did tested positive for COVID-19. On today's evaluation that is 06/09/2023, the patient denies having any fever or any chills patient is breathing comfortably on room air satting over 96. He denies having any chest pain or worsening cough no vomiting no abdominal pain or diarrhea. Patient did have vital of 11.5 as of yesterday creatinine 0.96. Objective - Vital Signs Vital signs: Vital Signs Temp 97.9 F 06/09/23 08:00 Pulse 67 06/09/23 08:00 Resp 18 06/09/23 08:00 BP 125/76 06/09/23 08:00 Pulse Ox 96 06/09/23 08:00 FiO2 Intake & Output 06/08/23 06/09/23 06/09/23 18:59 06:59 18:59 Intake Total 358 890 118 Output Total 400 150 Balance 358 490 -32 Intake: Intake, IV Titration 640 Amount Dextrose 5%-0.45% NaCl 1, 640 000 ml @ 80 mls/hr IV . [id number] [facility] Rx#:[id number] Oral 358 250 118 Output: Urine 400 150 Other: Voiding Method Toilet Urinal # Voids 2 # Bowel Movements 1 - Exam GENERAL DESCRIPTION: Elderly age male lying in bed in no distress RESPIRATORY SYSTEM: Unlabored breathing , decreased breath sounds at bases HEART: S1 S2 regular rate and rhythm ,no loud murmurs ABDOMEN: Soft , no tenderness EXTREMITIES: no edema - Labs CBC & Chem 7: 06/08/23 10:48 06/09/23 07:57 Labs: Abnormal Lab Results - Last 24 Hours (Table) 06/08/23 06/08/23 06/08/23 Range/Units 10:47 10:48 10:48 WBC 11.5 H (3.8-10.6) k/uL RBC 3.78 L (4.30-5.90) m/uL Hgb 11.6 L (13.0-17.5) gm/dL Hct 35.3 L (39.0-53.0) % Neutrophils # 9.7 H (1.3-7.7) k/uL Lymphocytes # 0.9 L (1.0-4.8) k/uL PT (10.0-12.5) sec INR (<1.2) Sodium 131 L (137-145) mmol/L Potassium (3.5-5.1) mmol/L Carbon Dioxide 18 L (22-30) mmol/L BUN 25 H (9-20) mg/dL Glucose 253 H (74-99) mg/dL POC Glucose (mg/dL) (70-110) mg/dL Hemoglobin A1c 10.8 H (<=6.0) % Calcium 8.3 L (8.4-10.2) mg/dL 06/08/23 06/08/23 06/08/23 Range/Units 12:31 16:55 19:09 WBC (3.8-10.6) k/uL RBC (4.30-5.90) m/uL Hgb (13.0-17.5) gm/dL Hct (39.0-53.0) % Neutrophils # (1.3-7.7) k/uL Lymphocytes # (1.0-4.8) k/uL PT 32.0 H (10.0-12.5) sec INR 3.3 H (<1.2) Sodium (137-145) mmol/L Potassium (3.5-5.1) mmol/L Carbon Dioxide (22-30) mmol/L BUN (9-20) mg/dL Glucose (74-99) mg/dL POC Glucose (mg/dL) 286 H 376 H (70-110) mg/dL Hemoglobin A1c (<=6.0) % Calcium (8.4-10.2) mg/dL 06/08/23 06/09/23 06/09/23 Range/Units 20:23 06:17 07:57 WBC (3.8-10.6) k/uL RBC (4.30-5.90) m/uL Hgb (13.0-17.5) gm/dL Hct (39.0-53.0) % Neutrophils # (1.3-7.7) k/uL Lymphocytes # (1.0-4.8) k/uL PT (10.0-12.5) sec INR (<1.2) Sodium 136 L (137-145) mmol/L Potassium 3.3 L (3.5-5.1) mmol/L Carbon Dioxide (22-30) mmol/L BUN (9-20) mg/dL Glucose 118 H (74-99) mg/dL POC Glucose (mg/dL) 346 H 166 H (70-110) mg/dL Hemoglobin A1c (<=6.0) % Calcium (8.4-10.2) mg/dL 06/09/23 Range/Units 07:57 WBC (3.8-10.6) k/uL RBC (4.30-5.90) m/uL Hgb (13.0-17.5) gm/dL Hct (39.0-53.0) % Neutrophils # (1.3-7.7) k/uL Lymphocytes # (1.0-4.8) k/uL PT 20.6 H (10.0-12.5) sec INR 2.1 H (<1.2) Sodium (137-145) mmol/L Potassium (3.5-5.1) mmol/L Carbon Dioxide (22-30) mmol/L BUN (9-20) mg/dL Glucose (74-99) mg/dL POC Glucose (mg/dL) (70-110) mg/dL Hemoglobin A1c (<=6.0) % Calcium (8.4-10.2) mg/dL Microbiology - Last 24 Hours (Table) 06/06/23 12:46 Blood Culture - Preliminary Blood 06/06/23 12:31 Blood Culture - Preliminary Blood Assessment and Plan (1) COVID-19 Current Visit: Yes Status: Acute Code(s): U07.1 - COVID-19 SNOMED Code(s): 484239510 Plan: 1patient was in the hospital with weakness not feeling well which is likely multifactorial in this patient who tested positive for COVID-19 patient did have mild URI symptoms and no significant fever or hypoxemia or need for supplemental oxygen chest x-ray did not show any groundglass opacities, the patient not behaving as COVID-19 pneumonia and treatment will be mostly supportive patient will not qualify for remdesivir or steroids 2we currently waiting for the CRP and a procalcitonin. 3patient to continue zinc vitamin C Coumadin and droplet isolation, no need for steroids or remdesivir Dictation was produced using [employer] dictation software. please excuse any grammatical, word or spelling errors.
[2023-06-09 15:28] LABS: Appearance,Urine Clear (Clear); Bilirubin,Urine Negative (Negative); Blood,Urine Large (Negative); Budding Yeast,Urine Occasional /hpf; Color,Urine Light Yellow; Glucose,Urine (UA) 1+ (Negative); Ketones,Urine Negative (Negative); Leukocyte Esterase,Urine Moderate (Negative); Mucus,Urine Rare /hpf; Nitrite,Urine Negative (Negative); PH, Urine 5.5 (5.0-8.0); Protein,Urine Negative (Negative); RBC,Urine 15 /hpf (0-5); Specific Gravity,Urine 1.006 (1.001-1.035); Squamous Epithelial Cell,Urine <1 /hpf (0-4); Urobilinogen,Urine <2.0 mg/dL (<2.0); WBC,Urine 14 /hpf (0-5)
[2023-06-09] MEDS ORDERED: WARFARIN 5 MG TAB PO SCH (17:00)
[2023-06-09 17:18] LABS: Glucose,Whole Blood 212 mg/dL (70-110)
[2023-06-09] MEDS ORDERED: WARFARIN 5 MG TAB PO ONE (18:00)
[2023-06-09 20:32] LABS: Glucose,Whole Blood 37 mg/dL (70-110)
[2023-06-09 20:33] LABS: Glucose,Whole Blood 37 mg/dL (70-110)
[2023-06-09 20:56] LABS: Glucose,Whole Blood 127 mg/dL (70-110)
[2023-06-09] MEDS: SENNOSIDES-DOCUSATE SODIUM 1 EACH TAB PO SCH (21:30)
[2023-06-09] MEDS: ATORVASTATIN 40 MG TAB PO SCH (21:30)
[2023-06-10] MEDS: hydrALAZINE HCL 50 MG TAB PO SCH ×5 (01:08→17:01)
[2023-06-10 06:27] LABS: Glucose,Whole Blood 110 mg/dL (70-110)
[2023-06-10] MEDS: INSULIN ASPART (NovoLOG) 100 UNIT/ML VIAL SQ SCH ×7 (07:01→21:11)
[2023-06-10] MEDS: SYMBICORT 80-4.5 MCG INHALER INHALATION SCH ×2 (08:51→16:24)
[2023-06-10] MEDS: ALBUTEROL HFA INHALER INHALATION SCH ×4 (08:51→22:15)
[2023-06-10 09:28] LABS: Basophils % (A) 0 %; Eosinophils # (A) 0.2 k/uL (0-0.7); Eosinophils % (A) 1 %; HCT 33.2 % (39.0-53.0); HGB 11.3 gm/dL (13.0-17.5); Lymphocytes # (A) 1.1 k/uL (1.0-4.8); Lymphocytes % (A) 10 %; MCH 31.6 pg (25.0-35.0); MCHC 34.1 g/dL (31.0-37.0); MCV 92.7 fL (80.0-100.0); Mean Platelet Volume 8.3; Monocytes # (A) 0.7 k/uL (0-1.0); Monocytes % (A) 6 %; Neutrophils # (A) 9.2 k/uL (1.3-7.7); Neutrophils % (A) 81 %; Platelet Count 464 k/uL (150-450); RBC 3.58 m/uL (4.30-5.90); RDW 12.6 % (11.5-15.5); WBC 11.3 k/uL (3.8-10.6)
[2023-06-10 09:41] LABS: ALT 28 U/L (4-49); AST 36 U/L (17-59); African American GFR (CKD) 82 (>60 ml/min/1.73 sqM); Albumin 2.8 g/dL (3.5-5.0); Alkaline Phosphatase 162 U/L (38-126); Anion Gap 11 mmol/L; Blood Urea Nitrogen 13 mg/dL (9-20); Calcium 8.6 mg/dL (8.4-10.2); Carbon Dioxide 22 mmol/L (22-30); Chloride 102 mmol/L (98-107); Glucose 131 mg/dL (74-99); Non-African American GFR(CKD) 71 (>60 ml/min/1.73 sqM); Potassium 3.7 mmol/L (3.5-5.1); Sodium 135 mmol/L (137-145); Total Bilirubin 1.1 mg/dL (0.2-1.3); Total Protein 6.1 g/dL (6.3-8.2)
[2023-06-10] MEDS: PANTOPRAZOLE 40 MG/10 ML VIAL IVP SCH (09:45)
[2023-06-10] MEDS: ASPIRIN 325 MG TAB PO SCH (09:46)
[2023-06-10] MEDS: TAMSULOSIN 0.4 MG CAP.ER.24H PO SCH (09:46)
[2023-06-10] MEDS: ASCORBIC ACID 500 MG TAB PO SCH ×2 (09:46→21:14)
[2023-06-10] MEDS: ZINC SULFATE 220 MG CAP PO SCH (09:46)
[2023-06-10] MEDS: IBUPROFEN 600 MG TAB PO SCH ×4 (09:46→21:14)
[2023-06-10] MEDS: atenoloL 25 MG TAB PO SCH (09:46)
[2023-06-10] MEDS: guaiFENesin 600 MG TABLET.ER PO SCH ×2 (09:46→21:14)
[2023-06-10] MEDS: CHOLECALCIFEROL 25 MCG (1000 IU) TABLET PO SCH (09:46)
[2023-06-10] MEDS: amLODIPine 5 MG TAB PO SCH (09:47)
[2023-06-10] MEDS: polyethylene glycoL 3350 17 GM POWD.PACK PO SCH (09:47)
[2023-06-10] MEDS: INSULIN DETEMIR (LEVEMIR) 100 UNIT/ML SYR SQ SCH (09:48)
[2023-06-10 09:53] LABS: INR 1.6 (<1.2); Prothrombin Time 16.5 sec (10.0-12.5)
[2023-06-10 09:55] LABS: C Reactive Protein 5.6 mg/dL (<1.0)
--- NOTE | 2023-06-10 11:20 | P.PN ---
Subjective This is an 88-year-old gentleman with past medical history significant for recent Right hip IT fracture status post fall, right hip IM Nail, discharged on 05/30/[address] [facility] subacute rehab. and multiple other medical issues. On that prior visit, patient presented with rhabdomyolysis, acute hypoxic respiratory failure secondary to atelectasis and acute bronchitis, hyperglycemia with A1c of 11.9 and multiple other medical issues. Return to the ER with significant postop pain right lower extremity, tested positive for Covid-19. Denies any chest pain, palpitations or shortness of breath. Troponins elevated/higher than previous admission: 0.355, 0.334, 0.289. Maintaining O2 sats in the 90s on room air. Denies nausea, vomiting or diarrhea. Denies abdominal pain. Radiology studies reviewed by orthopedic surgery, no further surgical intervention recommended, continue with prior pain management previously recommended.Afebrile, WBC 13.2, hemoglobin 11.0, platelets 327, sodium 132, potassium 3.5, bicarb 22, BUN 44, creatinine 1.2. Lactic acid 0.7, total bili 1.4, alk phos 167. UA reporting 18 WBCs, moderate leukocyte esterases, negative nitrates and trace protein. Glucose 120s to 130s. Chest x-ray reporting small effusions posterior on the lateral projection, pulmonary venous congestion without overt failure. 06/08/2023 evaluated by orthopedic surgery, recommending activity of weightbearing as tolerated with walker and assistance .continues complaining of ongoing postoperative pain-right lower extremity. Blood sugars running higher this morning, in the low 200s. Denies chest pain, palpitations or shortness of breath. Troponin last night decreased to 0.168. Maintaining O2 sats in the mid to high 90s on room air. Aspiration precautions maintained, Speech therapy evaluation pending. Labs pending. 06/09/2023 This is a pleasant 88 years old male who presents initially with upper respiratory signs symptoms secondary to call with infection. His been treated with multiple vitamins. Also is on ceftriaxone for urinary tract infection. Route Deliverer evaluated the patient for high troponin and currently is on aspirin 325 mg. Also his INR is therapeutic today 2.1 and he is going to receive 5 mg of Coumadin ( confirmed with the daughter at bedside and she told me he takes Coumadin for his heart disease) 06/10/2023 Patient awake alert, he feels little better compared to yesterday. He doesn't have much dyspnea at rest. He doesn't have exertional dyspnea when he goes from the bed to the chair. No chest pain or significant comfort. Still generally weak. She is hemodynamically stable. WBC 11.3, hemoglobin 11.3, INR 1.6. Yesterday he got 1 dose of Coumadin 5 mg we going to give 7.5 mg tonight. Keep checking INR Glucose was elevated yesterday however overnight she become hypoglycemic R 37. Now improved and patient is asymptomatic. We lowered his Levemir 15 units daily and NovoLog for 4 or 5 units with meals. Also patient is on ceftriaxone for his UTI, D5 half normal saline at 80 mL per hour. A still feels little dysuria at bedside Objective - Vital Signs Vital signs: Vital Signs Temp 98 F 06/10/23 08:00 Pulse 71 06/10/23 08:00 Resp 16 06/10/23 08:00 BP 139/66 06/10/23 08:00 Pulse Ox 98 06/10/23 08:00 FiO2 Intake & Output 06/09/23 06/10/23 06/10/23 18:59 06:59 18:59 Intake Total 236 700 320 Output Total 850 725 725 Balance -614 -25 -405 Weight 71 kg Intake: Intake, IV Titration 400 Amount Dextrose 5%-0.45% NaCl 1, 400 000 ml @ 80 mls/hr IV . [id number] Rx#:[id number] Oral 236 300 320 Output: Urine 850 725 725 Uretheral (Danielle) 700 725 725 Other: Voiding Method Toilet Urinal - Exam GENERAL: The patient is alert and oriented x3, not in any acute distress. Well developed, well nourished. HEENT: Pupils are round and equally reacting to light. EOMI. No scleral icterus. No conjunctival pallor. Normocephalic, atraumatic. No pharyngeal erythema. No thyromegaly. CARDIOVASCULAR: S1 and S2 present. No murmurs, rubs, or gallops. PULMONARY: Chest is clear to auscultation, no wheezing , no crackles. ABDOMEN: Soft, nontender, nondistended, normoactive bowel sounds. No palpable organomegaly. MUSCULOSKELETAL: No joint swelling or deformity. EXTREMITIES: No cyanosis, clubbing, or pedal edema. NEUROLOGICAL: Gross neurological examination did not reveal any focal deficits. SKIN: No rashes. no petechiae. - Labs CBC & Chem 7: 06/10/23 08:24 06/10/23 08:24 Labs: Abnormal Lab Results - Last 24 Hours (Table) 06/09/23 06/09/23 06/09/23 Range/Units 07:57 11:43 12:58 WBC (3.8-10.6) k/uL RBC (4.30-5.90) m/uL Hgb (13.0-17.5) gm/dL Hct (39.0-53.0) % Plt Count (150-450) k/uL Neutrophils # (1.3-7.7) k/uL PT (10.0-12.5) sec INR (<1.2) Sodium (137-145) mmol/L Glucose (74-99) mg/dL POC Glucose (mg/dL) 117 H (70-110) mg/dL Hemoglobin A1c 11.1 H (<=6.0) % Alkaline Phosphatase (38-126) U/L C-Reactive Protein (<1.0) mg/dL Total Protein (6.3-8.2) g/dL Albumin (3.5-5.0) g/dL Urine Glucose (UA) 1+ H (Negative) Urine Blood Large H (Negative) Ur Leukocyte Esterase Moderate H (Negative) Urine RBC 15 H (0-5) /hpf Urine WBC 14 H (0-5) /hpf Urine Mucus Rare H (None) /hpf Urine Yeast (Budding) Occasional H (None) /hpf 06/09/23 06/09/23 06/09/23 Range/Units 16:58 20:31 20:32 WBC (3.8-10.6) k/uL RBC (4.30-5.90) m/uL Hgb (13.0-17.5) gm/dL Hct (39.0-53.0) % Plt Count (150-450) k/uL Neutrophils # (1.3-7.7) k/uL PT (10.0-12.5) sec INR (<1.2) Sodium (137-145) mmol/L Glucose (74-99) mg/dL POC Glucose (mg/dL) 212 H 37 L 37 L (70-110) mg/dL Hemoglobin A1c (<=6.0) % Alkaline Phosphatase (38-126) U/L C-Reactive Protein (<1.0) mg/dL Total Protein (6.3-8.2) g/dL Albumin (3.5-5.0) g/dL Urine Glucose (UA) (Negative) Urine Blood (Negative) Ur Leukocyte Esterase (Negative) Urine RBC (0-5) /hpf Urine WBC (0-5) /hpf Urine Mucus (None) /hpf Urine Yeast (Budding) (None) /hpf 06/09/23 06/10/23 06/10/23 Range/Units 20:55 08:24 08:24 WBC 11.3 H (3.8-10.6) k/uL RBC 3.58 L (4.30-5.90) m/uL Hgb 11.3 L (13.0-17.5) gm/dL Hct 33.2 L (39.0-53.0) % Plt Count 464 H (150-450) k/uL Neutrophils # 9.2 H (1.3-7.7) k/uL PT 16.5 H (10.0-12.5) sec INR 1.6 H (<1.2) Sodium (137-145) mmol/L Glucose (74-99) mg/dL POC Glucose (mg/dL) 127 H (70-110) mg/dL Hemoglobin A1c (<=6.0) % Alkaline Phosphatase (38-126) U/L C-Reactive Protein (<1.0) mg/dL Total Protein (6.3-8.2) g/dL Albumin (3.5-5.0) g/dL Urine Glucose (UA) (Negative) Urine Blood (Negative) Ur Leukocyte Esterase (Negative) Urine RBC (0-5) /hpf Urine WBC (0-5) /hpf Urine Mucus (None) /hpf Urine Yeast (Budding) (None) /hpf 06/10/23 Range/Units 08:24 WBC (3.8-10.6) k/uL RBC (4.30-5.90) m/uL Hgb (13.0-17.5) gm/dL Hct (39.0-53.0) % Plt Count (150-450) k/uL Neutrophils # (1.3-7.7) k/uL PT (10.0-12.5) sec INR (<1.2) Sodium 135 L (137-145) mmol/L Glucose 131 H (74-99) mg/dL POC Glucose (mg/dL) (70-110) mg/dL Hemoglobin A1c (<=6.0) % Alkaline Phosphatase 162 H (38-126) U/L C-Reactive Protein 5.6 H (<1.0) mg/dL Total Protein 6.1 L (6.3-8.2) g/dL Albumin 2.8 L (3.5-5.0) g/dL Urine Glucose (UA) (Negative) Urine Blood (Negative) Ur Leukocyte Esterase (Negative) Urine RBC (0-5) /hpf Urine WBC (0-5) /hpf Urine Mucus (None) /hpf Urine Yeast (Budding) (None) /hpf Microbiology - Last 24 Hours (Table) 06/06/23 12:46 Blood Culture - Preliminary Blood 06/06/23 12:31 Blood Culture - Preliminary Blood Assessment and Plan Assessment: Acute COVID-19 infection Acute UTI, possible, culture pending Uncontrolled postoperative pain in a patient with recent Right hip IT fracture status post fall, right hip IM Nail on 05/27/2023. Discharge to subacute rehab on 05/30/2023. History of recent Rhabdomyolysis secondary to the above Elevated troponins, increased from prior admission, cardiology following History of postoperative hypoxic respiratory failure secondary to all the above plus atelectasis and acute bronchitis which patient completed treatment with Augmentin Diabetes mellitus, uncontrolled, hemoglobin A1c 10.8 ,hyperglycemic, further diabetic teaching outpatient in clinic with PCP. 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 Persistent atrial fibrillation on Coumadin COPD Prior nicotine dependence Hyponatremia Plan: Continue with ceftriaxone D5 half-normal saline at 80 Continue with vitamin C, vitamin D and zinc Continue with warfarin for a fib Patient is on aspirin Cardiology, infectious disease and orthopedic team consult Labs and medication were reviewed.. Continue same treatment. Continue with symptomatic treatment. Resume home medication. Monitor labs and vitals. DVT and GI prophylaxis. Further recommendations as per clinical course of the patient DVT prophylaxis: Warfarin GI Prophylaxis: ppi PT/OT: rehab Prognosis is guarded
[2023-06-10 12:06] LABS: Glucose,Whole Blood 218 mg/dL (70-110)
[2023-06-10] MEDS: DEXTROSE 5%-0.45% NACL 1,000 ML IV SCH (16:36)
[2023-06-10 17:02] LABS: Glucose,Whole Blood 107 mg/dL (70-110)
[2023-06-10] MEDS ORDERED: WARFARIN 7.5 MG TAB PO ONE (18:00)
--- NOTE | 2023-06-10 18:43 | P.PN ---
Subjective Progress Note Date: 06/10/23 Principal diagnosis: Covid 19 Patient is a 88-year-old male who recently did have a fall with resultant right hip fracture for which the patient did have a right hip intr amedullary nail fixation on 05/27/2023 the patient was stabilized and was subsequently discharged to the local correction for rehabilitation patient has been brought back to the hospital for evaluation of her weakness not feeling well the patient did tested positive for COVID-19. On today's evaluation that is 06/10/2023, the patient denies any fever or chills , the patient is breathing comfortably without need for supplemental oxygen, the patient denies chest pain or worsening cough/sputum production, patient denies nausea/vomiting , abdominal pain and no diarrhea reported Patient did have vital of 11.3, creatinine 0.97. UA + Objective - Vital Signs Vital signs: Vital Signs Temp 98 F 06/10/23 08:00 Pulse 71 06/10/23 08:00 Resp 16 06/10/23 11:57 BP 139/66 06/10/23 08:00 Pulse Ox 98 06/10/23 08:00 FiO2 Intake & Output 06/09/23 06/10/23 06/10/23 18:59 06:59 18:59 Intake Total 236 700 320 Output Total 850 725 725 Balance -614 -25 -405 Weight 71 kg Intake: Intake, IV Titration 400 Amount Dextrose 5%-0.45% NaCl 1, 400 000 ml @ 80 mls/hr IV . [id number] [facility] Rx#:[id number] Oral 236 300 320 Output: Urine 850 725 725 Uretheral (Danielle) 700 725 725 Other: Voiding Method Toilet Urinal - Exam GENERAL DESCRIPTION: Elderly age male lying in bed in no distress RESPIRATORY SYSTEM: Unlabored breathing , decreased breath sounds at bases HEART: S1 S2 regular rate and rhythm ,no loud murmurs ABDOMEN: Soft , no tenderness EXTREMITIES: no edema - Labs CBC & Chem 7: 06/10/23 08:24 06/10/23 08:24 Labs: Abnormal Lab Results - Last 24 Hours (Table) 06/09/23 06/09/23 06/09/23 Range/Units 07:57 12:58 16:58 WBC (3.8-10.6) k/uL RBC (4.30-5.90) m/uL Hgb (13.0-17.5) gm/dL Hct (39.0-53.0) % Plt Count (150-450) k/uL Neutrophils # (1.3-7.7) k/uL PT (10.0-12.5) sec INR (<1.2) Sodium (137-145) mmol/L Glucose (74-99) mg/dL POC Glucose (mg/dL) 212 H (70-110) mg/dL Hemoglobin A1c 11.1 H (<=6.0) % Alkaline Phosphatase (38-126) U/L C-Reactive Protein (<1.0) mg/dL Total Protein (6.3-8.2) g/dL Albumin (3.5-5.0) g/dL Urine Glucose (UA) 1+ H (Negative) Urine Blood Large H (Negative) Ur Leukocyte Esterase Moderate H (Negative) Urine RBC 15 H (0-5) /hpf Urine WBC 14 H (0-5) /hpf Urine Mucus Rare H (None) /hpf Urine Yeast (Budding) Occasional H (None) /hpf 06/09/23 06/09/23 06/09/23 Range/Units 20:31 20:32 20:55 WBC (3.8-10.6) k/uL RBC (4.30-5.90) m/uL Hgb (13.0-17.5) gm/dL Hct (39.0-53.0) % Plt Count (150-450) k/uL Neutrophils # (1.3-7.7) k/uL PT (10.0-12.5) sec INR (<1.2) Sodium (137-145) mmol/L Glucose (74-99) mg/dL POC Glucose (mg/dL) 37 L 37 L 127 H (70-110) mg/dL Hemoglobin A1c (<=6.0) % Alkaline Phosphatase (38-126) U/L C-Reactive Protein (<1.0) mg/dL Total Protein (6.3-8.2) g/dL Albumin (3.5-5.0) g/dL Urine Glucose (UA) (Negative) Urine Blood (Negative) Ur Leukocyte Esterase (Negative) Urine RBC (0-5) /hpf Urine WBC (0-5) /hpf Urine Mucus (None) /hpf Urine Yeast (Budding) (None) /hpf 06/10/23 06/10/23 06/10/23 Range/Units 08:24 08:24 08:24 WBC 11.3 H (3.8-10.6) k/uL RBC 3.58 L (4.30-5.90) m/uL Hgb 11.3 L (13.0-17.5) gm/dL Hct 33.2 L (39.0-53.0) % Plt Count 464 H (150-450) k/uL Neutrophils # 9.2 H (1.3-7.7) k/uL PT 16.5 H (10.0-12.5) sec INR 1.6 H (<1.2) Sodium 135 L (137-145) mmol/L Glucose 131 H (74-99) mg/dL POC Glucose (mg/dL) (70-110) mg/dL Hemoglobin A1c (<=6.0) % Alkaline Phosphatase 162 H (38-126) U/L C-Reactive Protein 5.6 H (<1.0) mg/dL Total Protein 6.1 L (6.3-8.2) g/dL Albumin 2.8 L (3.5-5.0) g/dL Urine Glucose (UA) (Negative) Urine Blood (Negative) Ur Leukocyte Esterase (Negative) Urine RBC (0-5) /hpf Urine WBC (0-5) /hpf Urine Mucus (None) /hpf Urine Yeast (Budding) (None) /hpf 06/10/23 Range/Units 12:04 WBC (3.8-10.6) k/uL RBC (4.30-5.90) m/uL Hgb (13.0-17.5) gm/dL Hct (39.0-53.0) % Plt Count (150-450) k/uL Neutrophils # (1.3-7.7) k/uL PT (10.0-12.5) sec INR (<1.2) Sodium (137-145) mmol/L Glucose (74-99) mg/dL POC Glucose (mg/dL) 218 H (70-110) mg/dL Hemoglobin A1c (<=6.0) % Alkaline Phosphatase (38-126) U/L C-Reactive Protein (<1.0) mg/dL Total Protein (6.3-8.2) g/dL Albumin (3.5-5.0) g/dL Urine Glucose (UA) (Negative) Urine Blood (Negative) Ur Leukocyte Esterase (Negative) Urine RBC (0-5) /hpf Urine WBC (0-5) /hpf Urine Mucus (None) /hpf Urine Yeast (Budding) (None) /hpf Microbiology - Last 24 Hours (Table) 06/06/23 12:46 Blood Culture - Preliminary Blood 06/06/23 12:31 Blood Culture - Preliminary Blood Assessment and Plan (1) COVID-19 Current Visit: Yes Status: Acute Code(s): U07.1 - COVID-19 SNOMED Code(s): 700144955 Plan: 1patient was in the hospital with weakness not feeling well which is likely multifactorial in this patient who tested positive for COVID-19 patient did have mild URI symptoms and no significant fever or hypoxemia or need for supplemental oxygen chest x-ray did not show any groundglass opacities, the patient not behaving as COVID-19 pneumonia and treatment will be mostly supportive patient will not qualify for remdesivir or steroids 2patient to continue zinc vitamin C Coumadin and droplet isolation, 3- positive UA , some urinary symptoms , continue with Rocephin while waiting for cultures to finalize Dictation was produced using [employer] dictation software. please excuse any grammatical, word or spelling errors. Time with Patient: Less than 30
[2023-06-10 20:52] LABS: Glucose,Whole Blood 250 mg/dL (70-110)
[2023-06-10] MEDS: SENNOSIDES-DOCUSATE SODIUM 1 EACH TAB PO SCH (21:14)
[2023-06-10] MEDS: ATORVASTATIN 40 MG TAB PO SCH (21:14)
[2023-06-11] MEDS: hydrALAZINE HCL 50 MG TAB PO SCH ×4 (05:52→20:37)
[2023-06-11 06:03] LABS: Glucose,Whole Blood 153 mg/dL (70-110)
[2023-06-11] MEDS: INSULIN ASPART (NovoLOG) 100 UNIT/ML VIAL SQ SCH ×7 (06:12→20:37)
[2023-06-11] MEDS: DEXTROSE 5%-0.45% NACL 1,000 ML IV SCH ×2 (06:14→17:47)
[2023-06-11] MEDS: ALBUTEROL HFA INHALER INHALATION SCH ×4 (08:39→20:32)
[2023-06-11] MEDS: SYMBICORT 80-4.5 MCG INHALER INHALATION SCH ×2 (08:39→20:32)
[2023-06-11] MEDS: CHOLECALCIFEROL 25 MCG (1000 IU) TABLET PO SCH (08:57)
[2023-06-11] MEDS: guaiFENesin 600 MG TABLET.ER PO SCH ×2 (08:58→20:39)
[2023-06-11] MEDS: PANTOPRAZOLE 40 MG/10 ML VIAL IVP SCH (08:58)
[2023-06-11] MEDS: atenoloL 25 MG TAB PO SCH (08:58)
[2023-06-11] MEDS: ZINC SULFATE 220 MG CAP PO SCH (08:58)
[2023-06-11] MEDS: TAMSULOSIN 0.4 MG CAP.ER.24H PO SCH (08:58)
[2023-06-11] MEDS: polyethylene glycoL 3350 17 GM POWD.PACK PO SCH (08:58)
[2023-06-11] MEDS: ASPIRIN 325 MG TAB PO SCH (08:58)
[2023-06-11] MEDS: ASCORBIC ACID 500 MG TAB PO SCH ×2 (08:58→20:37)
[2023-06-11] MEDS: IBUPROFEN 600 MG TAB PO SCH ×4 (08:58→20:31)
[2023-06-11] MEDS: INSULIN DETEMIR (LEVEMIR) 100 UNIT/ML SYR SQ SCH (08:59)
[2023-06-11] MEDS: amLODIPine 5 MG TAB PO SCH (08:59)
[2023-06-11 10:58] LABS: INR 2.4 (<1.2); Prothrombin Time 23.9 sec (10.0-12.5)
[2023-06-11 12:05] LABS: Glucose,Whole Blood 264 mg/dL (70-110)
--- NOTE | 2023-06-11 13:55 | XR ---
EXAMINATION TYPE: XR chest 2V DATE OF EXAM: 06/11/2023 1:48 PM COMPARISON: Chest radiographs from 06/06/2023 TECHNIQUE: XR chest 2V Portable AP radiograph of the chest. CLINICAL INDICATION:Male, 88 years old with history of Shortness of breath and cough; FINDINGS: Lungs/Pleura: Blunting of both costophrenic angles. No focal consolidation or pneumothorax. Hyperinfl ation. Pulmonary vascularity: Unremarkable. Heart/mediastinum: Cardiomediastinal silhouette is prominent in size. Atherosclerotic calcifications are seen in the aorta. Two lead cardiac conduction device overlying the left hemithorax with lead ti ps projecting over the right ventricle and right atrium. Musculoskeletal: Multiple level degenerative disc disease changes seen throughout the spine. IMPRESSION: 1. Similar small bilateral pleural effusions. 2. COPD changes.
[2023-06-11 17:06] LABS: Glucose,Whole Blood 140 mg/dL (70-110)
[2023-06-11] MEDS ORDERED: WARFARIN 5 MG TAB PO ONE (18:00)
[2023-06-11 20:05] LABS: Glucose,Whole Blood 200 mg/dL (70-110)
[2023-06-11] MEDS: ATORVASTATIN 40 MG TAB PO SCH (20:37)
[2023-06-11] MEDS: SENNOSIDES-DOCUSATE SODIUM 1 EACH TAB PO SCH (20:37)
--- NOTE | 2023-06-11 22:00 | P.PN ---
Subjective Progress Note Date: 06/11/23 This is a pleasant 88-year-old white male who was having some difficulty cough and today. He has come down with COVID-19 infection well at rehabilitation Center for a fractured right hip. His hip pain is improved over the last few days he denies any fever has been eating fairly well his INR was 2.4 today Objective - Vital Signs Vital signs: Vital Signs Temp 97.3 F L 06/11/23 20:00 Pulse 60 06/11/23 20:00 Resp 16 06/11/23 20:00 BP 142/71 06/11/23 20:00 Pulse Ox 98 06/11/23 20:00 FiO2 Intake & Output 06/11/23 06/11/23 06/12/23 06:59 18:59 06:59 Intake Total 290 240 Output Total 1800 650 Balance -1800 -360 240 Intake: IV 10 Invasive Line 2 10 Oral 280 240 Output: Urine 1800 650 Other: Voiding Method Indwelling Catheter Indwelling Catheter - Exam PHYSICAL EXAM: VITAL SIGNS: [As above] GENERAL: Alert and oriented 3, Sitting up in chair. NAD,MMM. HEENT: Normocephalic, Conjunctivae normal. NECK: Supple, no JVD. CARDIOVASCULAR: S1, S2 regular.No murmur RESPIRATION: Unlabored, Equal air entry. Bibasilar crackles. ABDOMEN: Soft, nondistended, nontender . No guarding. +BS. LEGS: No edema. no swelling . NERVOUS SYSTEM: Cranial N 2-12 grossly normal. No focal deficits. Strength and sensation grossly intact. Skin: Warm and dry, no rash - Labs CBC & Chem 7: 06/10/23 08:24 06/10/23 08:24 Labs: Abnormal Lab Results - Last 24 Hours (Table) 06/11/23 06/11/23 06/11/23 Range/Units 06:02 10:08 12:04 PT 23.9 H (10.0-12.5) sec INR 2.4 H (<1.2) POC Glucose (mg/dL) 153 H 264 H (70-110) mg/dL 06/11/23 06/11/23 Range/Units 17:04 20:03 PT (10.0-12.5) sec INR (<1.2) POC Glucose (mg/dL) 140 H 200 H (70-110) mg/dL Microbiology - Last 24 Hours (Table) 06/09/23 12:00 Urine Culture - Final Urine,Catheterized Radha albicans 06/06/23 12:46 Blood Culture - Final Blood 06/06/23 12:31 Blood Culture - Final Blood Assessment and Plan (1) COVID-19 Current Visit: Yes Status: Acute Code(s): U07.1 - COVID-19 SNOMED Code(s): 786032809 (2) Postoperative pain, acute, hip Current Visit: Yes Status: Acute Code(s): G89.18 - OTHER ACUTE POSTPROCEDURAL PAIN; M25.559 - PAIN IN UNSPECIFIED HIP SNOMED Code(s): 07971770 (3) Urinary tract infection Current Visit: Yes Status: Acute Code(s): N39.0 - URINARY TRACT INFECTION, SITE NOT SPECIFIED SNOMED Code(s): 97559719 Plan: Plan is to get ready for transfer within the next 12-24 hours patient is doing better but he'll still need full rehabilitation for his right hip ORIF the previous week continue supportive care for his cough. Continue anticoagulation in the form of Coumadin as ordered.
[2023-06-12] MEDS: hydrALAZINE HCL 50 MG TAB PO SCH ×3 (00:22→12:59)
[2023-06-12 05:46] LABS: Glucose,Whole Blood 207 mg/dL (70-110)
[2023-06-12] MEDS: INSULIN ASPART (NovoLOG) 100 UNIT/ML VIAL SQ SCH ×4 (06:31→12:59)
[2023-06-12] MEDS: DEXTROSE 5%-0.45% NACL 1,000 ML IV SCH (06:46)
[2023-06-12 08:10] LABS: INR 3.7 (<1.2); Prothrombin Time 36.2 sec (10.0-12.5)
[2023-06-12] MEDS: SYMBICORT 80-4.5 MCG INHALER INHALATION SCH (08:17)
[2023-06-12] MEDS: ALBUTEROL HFA INHALER INHALATION SCH ×3 (08:17→15:42)
[2023-06-12] MEDS: PANTOPRAZOLE 40 MG/10 ML VIAL IVP SCH (09:55)
[2023-06-12] MEDS: guaiFENesin 600 MG TABLET.ER PO SCH (09:56)
[2023-06-12] MEDS: TAMSULOSIN 0.4 MG CAP.ER.24H PO SCH (09:56)
[2023-06-12] MEDS: atenoloL 25 MG TAB PO SCH (09:57)
[2023-06-12] MEDS: IBUPROFEN 600 MG TAB PO SCH ×2 (09:57→12:59)
[2023-06-12] MEDS: ASPIRIN 325 MG TAB PO SCH (09:57)
[2023-06-12] MEDS: ASCORBIC ACID 500 MG TAB PO SCH (09:57)
[2023-06-12] MEDS: INSULIN DETEMIR (LEVEMIR) 100 UNIT/ML SYR SQ SCH (09:57)
[2023-06-12] MEDS: ZINC SULFATE 220 MG CAP PO SCH (09:57)
[2023-06-12] MEDS: CHOLECALCIFEROL 25 MCG (1000 IU) TABLET PO SCH (09:57)
[2023-06-12] MEDS: amLODIPine 5 MG TAB PO SCH (09:57)
[2023-06-12] MEDS: polyethylene glycoL 3350 17 GM POWD.PACK PO SCH (09:58)
[2023-06-12 11:17] VITALS: TEMP 97.3
[2023-06-12 11:48] LABS: Glucose,Whole Blood 301 mg/dL (70-110)
--- NOTE | 2023-06-12 12:54 | FL ---
EXAMINATION TYPE: FL barium swallow w video DATE OF EXAM: 06/12/2023 COMPARISON: NONE HISTORY: Zenker's diverticulum, coughing TECHNIQUE: Fluoroscopy. FINDINGS: Fluoroscopic guidance was provided for the procedure performed in conjunction with the [facility] pathology department. Please see complete report forthcoming from the Speech Pathology departmen t. Various consistencies from thin liquid to solids were administered. Fluoroscopy time 1 minute 35 seconds. Number of images: 0. There was deep penetration with thin liquids. Spontaneous coughing was noted during the exam. No significant pooling was observed in the vallecula. There was normal propulsion of the bolus. IMPRESSION: 1. Deep penetration with thin liquids. No definite aspiration.
--- NOTE | 2023-06-12 14:45 | P.PN ---
Subjective Progress Note Date: 06/11/23 Principal diagnosis: Covid 19 Patient is a 88-year-old male who recently did have a fall with resultant right hip fracture for which the patient did have a right hip intr amedullary nail fixation on 05/27/2023 the patient was stabilized and was subsequently discharged to the local long-term for rehabilitation patient has been brought back to the hospital for evaluation of her weakness not feeling well the patient did tested positive for COVID-19. On today's evaluation that is 06/12/2023, the patient continues to be afebrile the patient is breathing comfortably on room air, the patient denies chest pain, shortness of breath however he did have significant cough and is bringing up some sputum, patient denies abdominal pain, no nausea/vomiting and no diarrhea Patient did have white count of 11.3 , creatinine 0.97 as of 06/10/2023 Objective - Vital Signs Vital signs: Vital Signs Temp 98.2 F 06/11/23 08:49 Pulse 67 06/11/23 08:49 Resp 15 06/11/23 08:49 BP 127/66 06/11/23 08:49 Pulse Ox 100 06/11/23 08:49 FiO2 Intake & Output 06/10/23 06/11/23 06/11/23 18:59 06:59 18:59 Intake Total 978 290 Output Total 725 1800 Balance 253 -1800 290 Intake: IV 10 Invasive Line 2 10 Oral 978 280 Output: Urine 725 1800 Uretheral (Danielle) 725 Other: Voiding Method Indwelling Catheter Indwelling Catheter - Exam GENERAL DESCRIPTION: Elderly age male lying in bed in no distress RESPIRATORY SYSTEM: Unlabored breathing , decreased breath sounds at bases HEART: S1 S2 regular rate and rhythm ,no loud murmurs ABDOMEN: Soft , no tenderness EXTREMITIES: no edema - Labs CBC & Chem 7: 06/10/23 08:24 06/10/23 08:24 Labs: Abnormal Lab Results - Last 24 Hours (Table) 06/10/23 06/10/23 06/11/23 Range/Units 08:24 20:50 06:02 PT (10.0-12.5) sec INR (<1.2) POC Glucose (mg/dL) 250 H 153 H (70-110) mg/dL Procalcitonin 0.15 H (0.02-0.09) ng/mL 06/11/23 06/11/23 Range/Units 10:08 12:04 PT 23.9 H (10.0-12.5) sec INR 2.4 H (<1.2) POC Glucose (mg/dL) 264 H (70-110) mg/dL Procalcitonin (0.02-0.09) ng/mL Assessment and Plan (1) COVID-19 Current Visit: Yes Status: Acute Code(s): U07.1 - COVID-19 SNOMED Code(s): 495696387 Plan: 1patient was in the hospital with weakness not feeling well which is likely multifactorial in this patient who tested positive for COVID-19 patient did have mild URI symptoms and no significant fever or hypoxemia or need for supplemental oxygen chest x-ray did not show any groundglass opacities, the patient not behaving as COVID-19 pneumonia and treatment will be mostly supportive patient will not qualify for remdesivir or steroids 2patient to continue zinc vitamin C Coumadin and droplet isolation, 3- positive UA , some urinary symptoms , continue with Rocephin with significant cough and sputum ration we'll repeat his chest x-ray Dictation was produced using [employer] dictation software. please excuse any grammatical, word or spelling errors. Time with Patient: Less than 30
--- NOTE | 2023-06-12 14:46 | P.PN ---
Subjective Progress Note Date: 06/12/23 Principal diagnosis: Covid 19 Patient is a 88-year-old male who recently did have a fall with resultant right hip fracture for which the patient did have a right hip intr amedullary nail fixation on 05/27/2023 the patient was stabilized and was subsequently [facility] patient has been brought back to the hospital for evaluation of her weakness not feeling well the patient did tested positive for COVID-19. On today's evaluation that is 06/12/2023, the patient continues to be afebrile the patient is breathing comfortably on room air, the patient denies chest pain, shortness of breath, still complaining of cough and is bringing up some sputum, patient denies abdominal pain, no nausea/vomiting and no diarrhea Patient did have white count of 11.3 , creatinine 0.97 as of 06/10/2023 patient denies any CBC, INR was 3.7 Objective - Vital Signs Vital signs: Vital Signs Temp 97.3 F L 06/12/23 08:00 Pulse 71 06/12/23 11:28 Resp 16 06/12/23 11:28 BP 140/60 06/12/23 11:28 Pulse Ox 98 06/12/23 11:28 FiO2 Intake & Output 06/11/23 06/12/23 06/12/23 18:59 06:59 18:59 Intake Total 290 240 240 Output Total 650 500 Balance -360 -260 240 Intake: IV 10 Invasive Line 2 10 Oral 280 240 240 Output: Urine 650 500 Other: Voiding Method Indwelling Catheter Indwelling Catheter Indwelling Catheter # Bowel Movements 1 - Exam GENERAL DESCRIPTION: Elderly age male lying in bed in no distress RESPIRATORY SYSTEM: Unlabored breathing , decreased breath sounds at bases HEART: S1 S2 regular rate and rhythm ,no loud murmurs ABDOMEN: Soft , no tenderness EXTREMITIES: no edema - Labs CBC & Chem 7: 06/10/23 08:24 06/10/23 08:24 Labs: Abnormal Lab Results - Last 24 Hours (Table) 06/11/23 06/11/23 06/12/23 Range/Units 17:04 20:03 05:44 PT (10.0-12.5) sec INR (<1.2) POC Glucose (mg/dL) 140 H 200 H 207 H (70-110) mg/dL 06/12/23 06/12/23 Range/Units 06:53 11:46 PT 36.2 H (10.0-12.5) sec INR 3.7 H (<1.2) POC Glucose (mg/dL) 301 H (70-110) mg/dL Microbiology - Last 24 Hours (Table) 06/09/23 12:00 Urine Culture - Final Urine,Catheterized Radha albicans 06/06/23 12:46 Blood Culture - Final Blood 06/06/23 12:31 Blood Culture - Final Blood Assessment and Plan (1) COVID-19 Current Visit: Yes Status: Acute Code(s): U07.1 - COVID-19 SNOMED Code(s): 199775657 Plan: 1patient was in the hospital with weakness not feeling well which is likely multifactorial in this patient who tested positive for COVID-19 patient did have mild URI symptoms and no significant fever or hypoxemia or need for supplemental oxygen chest x-ray did not show any groundglass opacities, the patient not behaving as COVID-19 pneumonia and treatment will be mostly supportive patient will not qualify for remdesivir or steroids 2patient to continue zinc vitamin C Coumadin and droplet isolation, 3- positive UA , some urinary symptoms , patient chest x-ray was negative for acute infiltrate, urine is growing Radha, we will discontinue Rocephin and Diflucan repeat CBC and a BMP with a.m. lab Dictation was produced using [employer] dictation software. please excuse any grammatical, word or spelling errors. Time with Patient: Less than 30
--- NOTE | 2023-06-12 14:58 | P.DS ---
Providers Date of admission: 06/08/23 15:27 Expected date of discharge: 06/12/23 Attending physician: Kranthi Cuevas Consults: 06/06/23 16:38 Consult Physician Urgent Consulting Provider: Delbert Stubbs Consult Reason/Comments: Postsurgical hip pain Do you want consulting provider notified?: Yes 06/07/23 19:58 Consult Physician Routine Consulting Provider: Chaparrita De La Fuente Consult Reason/Comments: covid Do you want consulting provider notified?: Yes Primary care physician: Kranthi Cuevas - Discharge Diagnosis(es) (1) COVID-19 Current Visit: Yes Status: Acute (2) Postoperative pain, acute, hip Current Visit: Yes Status: Acute (3) Urinary tract infection Current Visit: Yes Status: Acute (4) Fracture, intertrochanteric, right femur Current Visit: No Status: Acute Hospital Course: This 88-year-old white male who was admitted back to the hospital after developing COVID-19 infection patient was sent to rehab after he sustained a fall and a fracture of his right intertrochanteric hip this was fixed by orthopedics and patient was in rehab setting developed increasing problems with pain in Covid. He is treated supportive supportively on vitamin C zinc trouble IV hydration. He was seen by infectious disease who felt patient didn't qualify for any other intervention at this time he be released back to inpatient rehab for his right hip procedure. Patient's pain is in control he is ambulating 10- 15 feet with walker and one assist is a Danielle catheter in place he did require thickened nectar liquids because of some dysphagia but he has refused and understands the risk is and is willing to accept that just make sure head of bed is 45 or more Plan - Discharge Summary New Discharge Prescriptions: New Ibuprofen [Motrin] 600 mg PO QID tab Zinc Sulfate [Orazinc] 220 mg PO DAILY cap Ascorbic Acid [Vitamin C] 500 mg PO BID tab Insulin Detemir (Levemir) [Levemir] 15 unit SQ DAILY each Cholecalciferol [Vitamin D3 (25 Mcg = 1000 Iu)] 100 mcg PO DAILY tab Continue lisinopriL [Zestril] 20 mg PO BID@0800,1700 hydrALAZINE HCL [Apresoline] 50 mg PO Q8HR@0600,1400,2200 Warfarin [Coumadin] 5 mg PO DAILY@1700 atenoloL [Tenormin] 25 mg PO DAILY@0800 amLODIPine [Norvasc] 5 mg PO DAILY@0800 Ipratropium-Albuterol Nebulize [Duoneb 0.5 mg-3 mg/3 ml Soln] 3 ml INHALATION Q4H PRN each PRN Reason: Shortness Of Breath Or Wheezing HYDROcodone/APAP 7.5-325MG [[place] 7.5-325] 1 tab PO Q6HR PRN #24 tab PRN Reason: Pain Acetaminophen Tab [Tylenol] 650 mg PO Q6HR PRN tab PRN Reason: Fever And/ Or Pain bisacodyL [Dulcolax] 10 mg RECTAL DAILY PRN PRN Reason: Constipation Budesonide/Formoterol Fumarate [Symbicort 80-4.5 Mcg Inhaler] 2 puff INHALATION RT-BID@0800,1700 Ipratropium-Albuterol Nebulize [Duoneb 0.5 mg-3 mg/3 ml Soln] 3 ml INHALATION RT-QID each Glucerna Shake 120 - 237 ml PO TID@0800,1200,1700 guaiFENesin [guaiFENesin ER] 600 mg PO Q12HR@0800,2100 Magnesium Hydroxide [Milk of Magnesia Concentrate] 7,200 mg PO DAILY PRN PRN Reason: Constipation Na Phos,M-B/Na Phos,Di-Ba [Fleet Adult] 133 ml RECTAL DAILY PRN PRN Reason: Constipation Atorvastatin [Lipitor] 40 mg PO HS Sennosides-Docusate Sodium [Senokot-S] 2 tab PO HS Tamsulosin [Flomax] 0.4 mg PO DAILY@0800 Discontinued hydroCHLOROthiazide [Hydrodiuril] 25 mg PO DAILY@0800 Doxycycline Hyclate 100 mg PO BID@0800,1700 INSULIN LISPRO (HumaLOG) [humaLOG] See Protocol SQ ACHS INSULIN ASPART (NovoLOG) [NovoLOG (formulary)] 8 unit SQ AC-TID Nystatin [Nystatin Oral Susp] 500,000 unit PO QID Insulin Detemir (Levemir) [Levemir] 32 unit SQ DAILY@0700 Discharge Medication List Warfarin [Coumadin] 5 mg PO DAILY@1700 03/15/16 [History] amLODIPine [Norvasc] 5 mg PO DAILY@0800 03/15/16 [History] atenoloL [Tenormin] 25 mg PO DAILY@0800 03/15/16 [History] hydrALAZINE HCL [Apresoline] 50 mg PO Q8HR@0600,1400,2200 03/15/16 [History] lisinopriL [Zestril] 20 mg PO BID@0800,1700 03/15/16 [History] Ipratropium-Albuterol Nebulize [Duoneb 0.5 mg-3 mg/3 ml Soln] 3 ml INHALATION Q4H PRN each 05/29/23 [Rx] Ipratropium-Albuterol Nebulize [Duoneb 0.5 mg-3 mg/3 ml Soln] 3 ml INHALATION RT-QID each 05/29/23 [Rx] Acetaminophen Tab [Tylenol] 650 mg PO Q6HR PRN tab 05/30/23 [Rx] HYDROcodone/APAP 7.5-325MG [[place] 7.5-325] 1 tab PO Q6HR PRN #24 tab 05/30/23 [Rx] Atorvastatin [Lipitor] 40 mg PO HS 06/06/23 [History] Budesonide/Formoterol Fumarate [Symbicort 80-4.5 Mcg Inhaler] 2 puff INHALATION RT-BID@0800,1700 06/06/23 [History] Glucerna Shake 120 - 237 ml PO TID@0800,1200,1700 06/06/23 [History] Magnesium Hydroxide [Milk of Magnesia Concentrate] 7,200 mg PO DAILY PRN 06/06/23 [History] Na Phos,M-B/Na Phos,Di-Ba [Fleet Adult] 133 ml RECTAL DAILY PRN 06/06/23 [History] Sennosides-Docusate Sodium [Senokot-S] 2 tab PO HS 06/06/23 [History] Tamsulosin [Flomax] 0.4 mg PO DAILY@0800 06/06/23 [History] bisacodyL [Dulcolax] 10 mg RECTAL DAILY PRN 06/06/23 [History] guaiFENesin [guaiFENesin ER] 600 mg PO Q12HR@0800,2100 06/06/23 [History] Ascorbic Acid [Vitamin C] 500 mg PO BID tab 06/12/23 [Rx] Cholecalciferol [Vitamin D3 (25 Mcg = 1000 Iu)] 100 mcg PO DAILY tab 06/12/23 [Rx] Ibuprofen [Motrin] 600 mg PO QID tab 06/12/23 [Rx] Insulin Detemir (Levemir) [Levemir] 15 unit SQ DAILY each 06/12/23 [Rx] Zinc Sulfate [Orazinc] 220 mg PO DAILY cap 06/12/23 [Rx] Follow up Appointment(s)/Referral(s): Kranthi Cuevas DO [Primary Care Provider] - 2 Weeks Discharge Disposition: TRANSFER TO SNF/ECF
[2023-06-12] MEDS ORDERED: FLUCONAZOLE 100 MG TAB PO SCH (15:00)
[2023-06-12 16:25] VITALS: BP 142/70; PULSE 55; RESP 18
[2023-06-12] MEDS ORDERED: WARFARIN 0.5 MG TAB PO ONE (18:00)
== END 2023-06-12 16:17 | DRG 178 ==
LOC: EC 12:04 → 3SCARD 16:38 → OBSVTOIN 06-08 15:27
PROVIDERS: ADMIT Family Medicine; ATTEND Family Medicine
DX: U07.1 COVID-19 (principal); B37.49 Other urogenital candidiasis; I44.2 Atrioventricular block, complete; E87.1 Hypo-osmolality and hyponatremia; I48.19 Other persistent atrial fibrillation; E11.649 Type 2 diabetes mellitus with hypoglycemia without coma; E11.22 Type 2 diabetes mellitus with diabetic chronic kidney disease; E11.65 Type 2 diabetes mellitus with hyperglycemia; N18.30 Chronic kidney disease, stage 3 unspecified; Z79.4 Long term (current) use of insulin; I12.9 Hypertensive chronic kidney disease with stage 1 through stage 4 chronic kidney disease, or unspecified chronic kidney disease; G89.18 Other acute postprocedural pain; S72.141D Displaced intertrochanteric fracture of right femur, subsequent encounter for closed fracture with routine healing; R13.10 Dysphagia, unspecified; K44.9 Diaphragmatic hernia without obstruction or gangrene; M19.90 Unspecified osteoarthritis, unspecified site; M79.671 Pain in right foot; R77.8 Other specified abnormalities of plasma proteins; Z79.01 Long term (current) use of anticoagulants; Z79.51 Long term (current) use of inhaled steroids; Z79.899 Other long term (current) drug therapy; Z95.0 Presence of cardiac pacemaker; Z87.891 Personal history of nicotine dependence
CPT/HCPCS: 36415; 71046; 73501; 74220; 74230; 80048; 80053; 80061; 81001; 83036; 83605; 84145; 84484; 85025; 85610; 85730; 86140; 87040; 87086; 87635; 93005; 94640; 96361; 96365; 96375; 96376; 99285

== ENCOUNTER 2023-10-10 09:23 | Day surgery (SDC) | payer MEDICARE, BC ==
[2023-10-05 09:01] VITALS: BMI 22.2
[~2023-10-10 09:23] MED LIST: Pre Op ABX Message 1 EACH MISC MISCELLANE ONE
[2023-10-10] MEDS ORDERED: HYDROmorphone 0.5 MG/0.5 ML SYRINGE IVP PRN (09:37)
[2023-10-10] MEDS ORDERED: DEXAMETHASONE SOD PHOSPHATE 4 MG/ML 1 ML VIAL IV ONE (09:37)
[2023-10-10] MEDS: LACTATED RINGERS 1,000 ML IV SCH (09:50)
[2023-10-10 10:19] LABS: Prothrombin Time 11.3 sec (10.0-12.5)
[2023-10-10 10:19] LABS: Glucose,Whole Blood 298 mg/dL (70-110)
[2023-10-10] MEDS ORDERED: ACETAMINOPHEN TAB 500 MG TAB ONE (10:22)
[2023-10-10] MEDS: INSULIN ASPART (NovoLOG) 100 UNIT/ML VIAL SQ ONE (10:34)
[2023-10-10] MEDS: HEPARIN SODIUM,PORCINE 5,000 UNIT/ML 1 ML VIAL SQ PRN (10:34)
[2023-10-10] MEDS: ACETAMINOPHEN TAB 500 MG TAB PO PRN (10:34)
[2023-10-10] MEDS: ONDANSETRON 4 MG/2 ML VIAL IVP ONE (10:34)
[2023-10-10 10:41] VITALS: TEMP 98.2
[2023-10-10] MEDS ORDERED: PROPOFOL 10 MG/ML 20 ML VIAL IV ONE (10:57)
[2023-10-10] MEDS ORDERED: fentaNYL (PF) 50 MCG/ML 2 ML AMP ONE (10:57)
[2023-10-10] MEDS ORDERED: ceFAZolin 1 GM/50 ML BAG (PMX) ONE (10:57)
[2023-10-10] MEDS: LIDOCAINE 1%-EPI 1:100,000 50 ML VIAL SQ ONE ×2 (11:16)
[2023-10-10] MEDS: SODIUM CHLORIDE 0.9% 50 ML with ceFAZolin 1,000 MG IV ONE (11:16)
--- NOTE | 2023-10-10 11:46 | P.OP ---
Date of Procedure: 10/10/23 Preoperative Diagnosis: Posterior neck lipoma Postoperative Diagnosis: Posterior neck sebaceous cyst Procedure(s) Performed: Excision of sebaceous cyst posterior neck Anesthesia: MAC Surgeon: Popeye Miranda Estimated Blood Loss (ml): 10 Pathology: other (Sebaceous cyst) Condition: stable Disposition: PACU Description of Procedure: The patient was placed on the operative table in the lateral position. He received IV sedation. His posterior neck was prepped draped you sterile fashion. The skin was excised 1% local Xylocaine. The skin was sized. The septations were divided. The mass appeared to be a sebaceous cyst. At this point using blunt sharp/electrocautery the cyst was dissected free. The cyst measured approxi-10 cm diameter. There was better hemostasis. Due to the risk of infection the wound was not closed. The wound was then packed with 2 inch Kerlix. Patient Toller procedure well. He was sent to recovery room in stable condition.
[2023-10-10 12:15] VITALS: BP 124/76; PULSE 70; RESP 20
[2023-10-10] MEDS ORDERED: INSULIN ASPART (NovoLOG) 100 UNIT/ML VIAL SQ SCH (12:30)
== END 2023-10-10 12:32 | disposition home or self-care (01) ==
LOC: OR 09:23
PROVIDERS: ATTEND Surgery
DX: D17.0 Benign lipomatous neoplasm of skin and subcutaneous tissue of head, face and neck (principal); L72.0 Epidermal cyst; L72.3 Sebaceous cyst; I10 Essential (primary) hypertension; E11.9 Type 2 diabetes mellitus without complications; N40.0 Benign prostatic hyperplasia without lower urinary tract symptoms; M19.90 Unspecified osteoarthritis, unspecified site; K21.9 Gastro-esophageal reflux disease without esophagitis; K44.9 Diaphragmatic hernia without obstruction or gangrene; Z79.84 Long term (current) use of oral hypoglycemic drugs; Z79.899 Other long term (current) drug therapy; Z95.0 Presence of cardiac pacemaker
CPT/HCPCS: 21933; 88304; 84132; 85610; J1644; J2405; J0690 ×2; J3010; J2704

== ENCOUNTER 2023-12-31 07:07 | Day surgery (SDC) | payer MEDICARE, BC ==
[~2023-12-31 07:07] MED LIST changes: +HYDROmorphone 0.5 MG/0.5 ML SYRINGE IVP PRN
[2023-12-31] MEDS: LACTATED RINGERS 1,000 ML IV SCH (07:37)
[2023-12-31] MEDS: ACETAMINOPHEN TAB 500 MG TAB PO PRN (08:09)
[2023-12-31] MEDS: INSULIN ASPART (NovoLOG) 100 UNIT/ML VIAL SQ ONE ×2 (08:09→09:30)
[2023-12-31] MEDS: HEPARIN SODIUM,PORCINE 5,000 UNIT/ML 1 ML VIAL SQ PRN (08:10)
[2023-12-31 08:15] LABS: Glucose,Whole Blood 418 mg/dL (70-110)
[2023-12-31] MEDS ORDERED: MIDAZOLAM 2 MG/2 ML VIAL ONE (08:42)
[2023-12-31] MEDS ORDERED: fentaNYL (PF) 50 MCG/ML 2 ML AMP ONE (08:42)
[2023-12-31] MEDS ORDERED: PROPOFOL 10 MG/ML 20 ML VIAL IV ONE (08:42)
[2023-12-31] MEDS ORDERED: KETAMINE HCL IN 0.9 % NACL 50 MG/5 ML SYRINGE ONE (08:42)
[2023-12-31] MEDS: LIDOCAINE 1%-EPI 1:100,000 20 ML VIAL SQ ONE (09:03)
--- NOTE | 2023-12-31 09:19 | P.OP ---
Date of Procedure: 12/31/23 Preoperative Diagnosis: back skin lesion Postoperative Diagnosis: back skin lesion Procedure(s) Performed: excision of back skin lesion Anesthesia: MAC Surgeon: Popeye Miranda Estimated Blood Loss (ml): 5 Pathology: other (back skin lesion) Condition: stable Disposition: PACU Description of Procedure: the patient's placed on the operating table in the lateral position. His back was prepped and draped usual sterile fashion. Patient had a 5 cm skin lesion in the midback. Elliptical skin incision was made after thethe areas of localized 1% local Xylocaine. using electrocauterythe skin lesion was dissected free to pathology. The skin was then closed with 2-0 nylon suture. Patient tolerated the procedure well. Sent to recovery room in stable condition.
[2023-12-31 09:27] LABS: Glucose,Whole Blood 407 mg/dL (70-110)
[2023-12-31 09:48] VITALS: TEMP 98
[2023-12-31 10:40] LABS: Glucose,Whole Blood 368 mg/dL (70-110)
[2023-12-31 11:19] VITALS: BP 155/63; PULSE 71; RESP 16
== END 2023-12-31 11:44 | disposition home or self-care (01) ==
LOC: OR 07:07
PROVIDERS: ATTEND Surgery
DX: C44.80 Unspecified malignant neoplasm of overlapping sites of skin (principal); I10 Essential (primary) hypertension; E11.9 Type 2 diabetes mellitus without complications; Z79.899 Other long term (current) drug therapy; Z79.84 Long term (current) use of oral hypoglycemic drugs; Z95.0 Presence of cardiac pacemaker
CPT/HCPCS: 88305; 11606; J2250; J1644; J3010; J2704

== ENCOUNTER 2024-04-21 13:59 | Inpatient (IN) | payer MEDICARE, BC ==
[2024-04-21 14:11] LABS: Glucose,Whole Blood 308 mg/dL (70-110)
--- NOTE | 2024-04-21 14:35 | ED ---
General Adult HPI - General Chief complaint: Altered Mental Status Stated complaint: hyperglycemia Time Seen by Provider: 04/21/24 14:05 Source: patient, family, RN notes reviewed, old records reviewed Mode of arrival: wheelchair Limitations: no limitations - History of Present Illness Initial comments: 89-year-old male history of sick sinus syndrome, diabetes presenting from the outpatient procedure for evaluation. Patient was noted to have an elevated blood sugar at 600. He has had increased dysuria and urinary frequency. Patient is noncompliant with insulin. Family reports weight loss and failure to thrive with very poor appetite. Patient was sent down from the Facility Coordinator for ER evaluation and admission. Patient denies chest or abdominal pain. There is but no measured fever. No vomiting. Patient has poor appetite according to family. - Related Data Home Medications Medication Instructions Recorded Confirmed amLODIPine [Norvasc] 5 mg PO DAILY 03/15/16 04/21/24 atenoloL [Tenormin] 25 mg PO DAILY 03/15/16 04/21/24 hydrALAZINE HCL [Apresoline] 50 mg PO DIRECTED 03/15/16 04/21/24 lisinopriL [Zestril] 20 mg PO BID 03/15/16 04/21/24 Tamsulosin [Flomax] 0.4 mg PO DAILY 06/06/23 04/21/24 Glimepiride [Amaryl] 4 mg PO AC-BID 10/05/23 04/21/24 Pioglitazone [Actos] 15 mg PO DAILY 10/05/23 04/21/24 hydroCHLOROthiazide 25 mg PO DAILY 10/05/23 04/21/24 metFORMIN HCL [Glucophage] 1,000 mg PO BID 10/05/23 04/21/24 Rivaroxaban [Xarelto] 15 mg PO DIRECTED 04/21/24 04/21/24 Allergies Allergy/AdvReac Type Severity Reaction Status Date / Time No Known Allergies Allergy Verified 04/21/24 09:58 Review of Systems ROS Statement: Those systems with pertinent positive or pertinent negative responses have been documented in the HPI. ROS Other: All systems not noted in ROS Statement are negative. Past Medical History Past Medical History: Diabetes Mellitus, GERD/Reflux, Hypertension, Osteoarthritis (OA), Pneumonia Additional Past Medical History / Comment(s): hiatal hernia, bph., ddd with back pain, hx fall with right hip fx and surgery (05/27/2023)-using walker, pacemaker., hx of Covid and pneumonia (may 2023), pts states patient stopped his warfarin 6 months ago - advised to contact Dr. Akhtar. History of Any Multi-Drug Resistant Organisms: None Reported Past Surgical History: Joint Replacement, Pacemaker Additional Past Surgical History / Comment(s): saeid cataracts, rt hip fx surgery 05/27/2023, benign cyst removed 2023 posterior neck Past Anesthesia/Blood Transfusion Reactions: No Reported Reaction Type of Cardiac Device: Permanent Pacemaker Device Placement Date:: 2007 Past Psychological History: No Psychological Hx Reported Smoking Status: Former smoker - Past Family History Mother Family Medical History: Cancer Father Family Medical History: Cancer General Exam Limitations: no limitations General appearance: alert, cachectic Head exam: Present: atraumatic, normocephalic Eye exam: Present: normal appearance, PERRL ENT exam: Present: mucous membranes dry Neck exam: Present: normal inspection. Absent: tenderness, meningismus Respiratory exam: Present: decreased breath sounds. Absent: respiratory distress Cardiovascular Exam: Present: regular rate, normal rhythm GI/Abdominal exam: Present: soft. Absent: distended, tenderness, guarding Extremities exam: Present: normal inspection, normal capillary refill. Absent: calf tenderness Course Vital Signs 04/21/24 04/21/24 04/21/24 14:03 14:54 16:50 Temperature 97.0 F L 97.9 F Pulse Rate 56 L 60 60 Respiratory 36 H 26 H 12 Rate Blood Pressure 88/57 113/64 101/56 O2 Sat by Pulse 95 93 L 92 L Oximetry 04/21/24 18:44 Temperature Pulse Rate 60 Respiratory 22 Rate Blood Pressure 114/67 O2 Sat by Pulse 95 Oximetry Medical Decision Making - Medical Decision Making Was pt. sent in by a medical professional or institution (, PA, WORKERS COMPENSATION MANAGER, urgent care, hospital, or fci...) When possible be specific @sent in by Dr. Talamantes Did you speak to anyone other than the patient for history (EMS, parent, family, police, friend...)? What history was obtained from this source @ -No Did you review nursing and triage notes (agree or disagree)? Why? @ -I reviewed and agree with nursing and triage notes Were old charts reviewed (outside hosp., previous admission, EMS record, old EKG, old radiological studies, urgent care reports/EKG's, fci records)? Report findings @ -No old charts were reviewed Differential Weakness: Hypoglycemia, shock, sepsis, hyponatremia, anemia, infection, ID, ETOH, adverse medicine reaction, overdose, stroke, this is not meant to be an all-inclusive list. EKG interpreted by me (3pts min.). @ -: Paced rhythm wide-complex rate of 70 QRS duration 170, QTc 510 X-rays interpreted by me (1pt min.). @No acute cardiopulmonary findings on chest x-ray CT interpreted by me (1pt min.). @ -None done U/S interpreted by me (1pt. min.). @ -None done What testing was considered but not performed or refused? (CT, X-rays, U/S, labs)? Why? @ -None What meds were considered but not given or refused? Why? @ -None Did you discuss the management of the patient with other professionals (professionals i.e. , PA, WORKERS COMPENSATION MANAGER, lab, RT, psych nurse, director social welfare, apprenticeship consultant, teacher, chief compliance officer, shoe parts caser)? Give summary @ -Discussed with Dr. Cuevas will admit Was smoking cessation discussed for >3mins.? @ -No Was critical care preformed (if so, how long)? @ -No Were there social determinants of health that impacted care today? How? (Homelessness, low income, unemployed, alcoholism, drug addiction, transportation, low edu. Level, literacy, decrease access to med. care, halfway, rehab)? @ -No Was there de-escalation of care discussed even if they declined (Discuss DNR or withdrawal of care, Hospice)? DNR status @ -No What co-morbidities impacted this encounter? (DM, HTN, Smoking, COPD, CAD, Cancer, CVA, ARF, Chemo, Hep., AIDS, mental health diagnosis, sleep apnea, morbid obesity)? @ -None Was patient admitted / discharged? Hospital course, mention meds given and route, prescriptions, significant lab abnormalities, going to OR and other pertinent info. @ -Admitted with dehydration, hyperglycemia, and UTI. Patient has a leukocytosis of 23. Undiagnosed new problem with uncertain prognosis? @ -No Drug Therapy requiring intensive monitoring for toxicity (Heparin, Nitro, Insulin, Cardizem)? @ -No Were any procedures done? @ -No Diagnosis/symptom? @ -UTI, dehydration, failure to thrive Acute, or Chronic, or Acute on Chronic? @ -acute Uncomplicated (without systemic symptoms) or Complicated (systemic symptoms)? @ -Default Side effects of treatment? @ -No Exacerbation, Progression, or Severe Exacerbation? @ -No Poses a threat to life or bodily function? How? (Chest pain, USA, ID, pneumonia, PE, COPD, DKA, ARF, appy, cholecystitis, CVA, Diverticulitis, Homicidal, Suicidal, threat to staff... and all critical care pts) @ yes, sepsis - Lab Data Result diagrams: 04/21/24 14:50 04/21/24 14:50 Lab Results 04/21/24 04/21/24 04/21/24 Range/Units 14:05 14:34 14:50 WBC 23.3 H (3.8-10.6) k/uL RBC 4.56 (4.30-5.90) m/uL Hgb 14.5 (13.0-17.5) gm/dL Hct 42.7 (39.0-53.0) % MCV 93.5 (80.0-100.0) fL MCH 31.8 (25.0-35.0) pg MCHC 34.0 (31.0-37.0) g/dL RDW 12.8 (11.5-15.5) % Plt Count 419 (150-450) k/uL MPV 8.9 Neutrophils % 89 % Lymphocytes % 6 % Monocytes % 4 % Eosinophils % 1 % Basophils % 0 % Neutrophils # 20.7 H (1.3-7.7) k/uL Lymphocytes # 1.4 (1.0-4.8) k/uL Monocytes # 0.9 (0-1.0) k/uL Eosinophils # 0.2 (0-0.7) k/uL Basophils # 0.1 (0-0.2) k/uL PT (10.0-12.5) sec INR (<1.2) APTT (22.0-30.0) sec Sodium (137-145) mmol/L Potassium (3.5-5.1) mmol/L Chloride (98-107) mmol/L Carbon Dioxide (22-30) mmol/L Anion Gap mmol/L BUN (9-20) mg/dL Creatinine (0.66-1.25) mg/dL Est GFR (CKD-EPI)AfAm (>60 ml/min/1.73 sqM) Est GFR (CKD-EPI)NonAf (>60 ml/min/1.73 sqM) Glucose (74-99) mg/dL POC Glucose (mg/dL) 308 H 236 H (70-110) mg/dL POC Glu Software Applications Engineer ID Kenneth, Javan Collado, Naz Calcium (8.4-10.2) mg/dL Total Bilirubin (0.2-1.3) mg/dL AST (17-59) U/L ALT (4-49) U/L Alkaline Phosphatase (38-126) U/L Total Protein (6.3-8.2) g/dL Albumin (3.5-5.0) g/dL Urine Color Urine Appearance (Clear) Urine pH (5.0-8.0) Ur Specific Surrency (1.001-1.035) Urine Protein (Negative) Urine Glucose (UA) (Negative) Urine Ketones (Negative) Urine Blood (Negative) Urine Nitrite (Negative) Urine Bilirubin (Negative) Urine Urobilinogen (<2.0) mg/dL Ur Leukocyte Esterase (Negative) Urine RBC (0-5) /hpf Urine WBC (0-5) /hpf Urine WBC Clumps (None) /hpf 04/21/24 04/21/24 04/21/24 Range/Units 14:50 14:50 14:50 WBC (3.8-10.6) k/uL RBC (4.30-5.90) m/uL Hgb (13.0-17.5) gm/dL Hct (39.0-53.0) % MCV (80.0-100.0) fL MCH (25.0-35.0) pg MCHC (31.0-37.0) g/dL RDW (11.5-15.5) % Plt Count (150-450) k/uL MPV Neutrophils % % Lymphocytes % % Monocytes % % Eosinophils % % Basophils % % Neutrophils # (1.3-7.7) k/uL Lymphocytes # (1.0-4.8) k/uL Monocytes # (0-1.0) k/uL Eosinophils # (0-0.7) k/uL Basophils # (0-0.2) k/uL PT 10.9 (10.0-12.5) sec INR 1.0 (<1.2) APTT 21.7 L (22.0-30.0) sec Sodium 144 (137-145) mmol/L Potassium 3.4 L (3.5-5.1) mmol/L Chloride 104 (98-107) mmol/L Carbon Dioxide 24 (22-30) mmol/L Anion Gap 16 mmol/L BUN 43 H (9-20) mg/dL Creatinine 1.63 H (0.66-1.25) mg/dL Est GFR (CKD-EPI)AfAm 43 (>60 ml/min/1.73 sqM) Est GFR (CKD-EPI)NonAf 37 (>60 ml/min/1.73 sqM) Glucose 171 H (74-99) mg/dL POC Glucose (mg/dL) (70-110) mg/dL POC Glu Software Applications Engineer ID Calcium 10.8 H (8.4-10.2) mg/dL Total Bilirubin 1.2 (0.2-1.3) mg/dL AST 25 (17-59) U/L ALT 22 (4-49) U/L Alkaline Phosphatase 148 H (38-126) U/L Total Protein 7.9 (6.3-8.2) g/dL Albumin 4.3 (3.5-5.0) g/dL Urine Color Colorless Urine Appearance Turbid (Clear) Urine pH 6.5 (5.0-8.0) Ur Specific [place] 1.013 (1.001-1.035) Urine Protein 2+ H (Negative) Urine Glucose (UA) 4+ H (Negative) Urine Ketones Trace H (Negative) Urine Blood Moderate H (Negative) Urine Nitrite Negative (Negative) Urine Bilirubin Negative (Negative) Urine Urobilinogen <2.0 (<2.0) mg/dL Ur Leukocyte Esterase Large H (Negative) Urine RBC 10 H (0-5) /hpf Urine WBC >182 H (0-5) /hpf Urine WBC Clumps Few H (None) /hpf 04/21/24 04/21/24 04/21/24 Range/Units 16:57 17:31 18:43 WBC (3.8-10.6) k/uL RBC (4.30-5.90) m/uL Hgb (13.0-17.5) gm/dL Hct (39.0-53.0) % MCV (80.0-100.0) fL MCH (25.0-35.0) pg MCHC (31.0-37.0) g/dL RDW (11.5-15.5) % Plt Count (150-450) k/uL MPV Neutrophils % % Lymphocytes % % Monocytes % % Eosinophils % % Basophils % % Neutrophils # (1.3-7.7) k/uL Lymphocytes # (1.0-4.8) k/uL Monocytes # (0-1.0) k/uL Eosinophils # (0-0.7) k/uL Basophils # (0-0.2) k/uL PT (10.0-12.5) sec INR (<1.2) APTT (22.0-30.0) sec Sodium (137-145) mmol/L Potassium (3.5-5.1) mmol/L Chloride (98-107) mmol/L Carbon Dioxide (22-30) mmol/L Anion Gap mmol/L BUN (9-20) mg/dL Creatinine (0.66-1.25) mg/dL Est GFR (CKD-EPI)AfAm (>60 ml/min/1.73 sqM) Est GFR (CKD-EPI)NonAf (>60 ml/min/1.73 sqM) Glucose (74-99) mg/dL POC Glucose (mg/dL) 80 117 H 94 (70-110) mg/dL POC Glu Software Applications Engineer ID Tobias, Naz Collado, Naz Collado, Naz Calcium (8.4-10.2) mg/dL Total Bilirubin (0.2-1.3) mg/dL AST (17-59) U/L ALT (4-49) U/L Alkaline Phosphatase (38-126) U/L Total Protein (6.3-8.2) g/dL Albumin (3.5-5.0) g/dL Urine Color Urine Appearance (Clear) Urine pH (5.0-8.0) Ur Specific [place] (1.001-1.035) Urine Protein (Negative) Urine Glucose (UA) (Negative) Urine Ketones (Negative) Urine Blood (Negative) Urine Nitrite (Negative) Urine Bilirubin (Negative) Urine Urobilinogen (<2.0) mg/dL Ur Leukocyte Esterase (Negative) Urine RBC (0-5) /hpf Urine WBC (0-5) /hpf Urine WBC Clumps (None) /hpf Disposition Clinical Impression: Urinary tract infection, Dehydration, Failure to thrive Disposition: ADMITTED IP TO THIS HOSP Condition: Stable Is patient prescribed a controlled substance at d/c from ED?: No Referrals: Kranthi Cuevas DO [Primary Care Provider] - 1-2 days Time of Disposition: 19:25
[2024-04-21 14:36] LABS: Glucose,Whole Blood 236 mg/dL (70-110)
[2024-04-21] MEDS: SODIUM CHLORIDE 0.9% 1,000 ML IV ONE (14:53)
[2024-04-21] MEDS: SODIUM CHLORIDE 0.9% 500 ML 500 ML IV ONE (14:53)
[2024-04-21 15:06] LABS: Basophils # (A) 0.1 k/uL (0-0.2); Basophils % (A) 0 %; Eosinophils # (A) 0.2 k/uL (0-0.7); Eosinophils % (A) 1 %; HCT 42.7 % (39.0-53.0); HGB 14.5 gm/dL (13.0-17.5); Lymphocytes # (A) 1.4 k/uL (1.0-4.8); Lymphocytes % (A) 6 %; MCH 31.8 pg (25.0-35.0); MCV 93.5 fL (80.0-100.0); Mean Platelet Volume 8.9; Monocytes # (A) 0.9 k/uL (0-1.0); Monocytes % (A) 4 %; Neutrophils # (A) 20.7 k/uL (1.3-7.7); Neutrophils % (A) 89 %; Platelet Count 419 k/uL (150-450); RBC 4.56 m/uL (4.30-5.90); RDW 12.8 % (11.5-15.5); WBC 23.3 k/uL (3.8-10.6)
[2024-04-21 15:19] LABS: ALT 22 U/L (4-49); AST 25 U/L (17-59); African American GFR (CKD) 43 (>60 ml/min/1.73 sqM); Albumin 4.3 g/dL (3.5-5.0); Alkaline Phosphatase 148 U/L (38-126); Anion Gap 16 mmol/L; Blood Urea Nitrogen 43 mg/dL (9-20); Calcium 10.8 mg/dL (8.4-10.2); Carbon Dioxide 24 mmol/L (22-30); Chloride 104 mmol/L (98-107); Glucose 171 mg/dL (74-99); Non-African American GFR(CKD) 37 (>60 ml/min/1.73 sqM); Potassium 3.4 mmol/L (3.5-5.1); Sodium 144 mmol/L (137-145); Total Bilirubin 1.2 mg/dL (0.2-1.3); Total Protein 7.9 g/dL (6.3-8.2)
[2024-04-21 15:27] LABS: Prothrombin Time 10.9 sec (10.0-12.5)
[2024-04-21 15:38] LABS: Partial Thromboplastin Time 21.7 sec (22.0-30.0)
[2024-04-21] MEDS: fentaNYL (PF) 50 MCG/ML 2 ML AMP IVP STA (16:55)
[2024-04-21 16:58] LABS: Glucose,Whole Blood 80 mg/dL (70-110)
--- NOTE | 2024-04-21 17:02 | XR ---
EXAMINATION TYPE: XR chest 2V DATE OF EXAM: 04/21/2024 4:46 PM CLINICAL INDICATION: Male, 89 years old with history of altered mental status; COMPARISON: Chest radiographs from 06/11/2020 TECHNIQUE: XR chest 2V Frontal view of the chest. FINDINGS: Lungs/Pleura: Nodular density in the left lower lung measuring up to 15 mm. There is flattening of th e diaphragm with increased lucency of the lungs. No evidence of pneumothorax, pleural effusion or foc al consolidation. Pulmonary vascularity: Unremarkable. Heart/mediastinum: Cardiomediastinal silhouette is unremarkable. Two lead cardiac conduction device o verlying the left hemithorax with lead tips projecting over the right ventricle and right atrium. Musculoskeletal: No acute osseous pathology. IMPRESSION: 1. No acute cardiopulmonary disease process. 2. Left lower lobe nodular density correlate with nonemergent CT imaging. 3. D changes.
[2024-04-21] MEDS: DEXTROSE 50% SYRINGE 50 ML IVP STA (17:08)
[2024-04-21 17:33] LABS: Glucose,Whole Blood 117 mg/dL (70-110)
[2024-04-21 18:44] LABS: Glucose,Whole Blood 94 mg/dL (70-110)
[2024-04-21 19:07] LABS: Appearance,Urine Turbid (Clear); Bilirubin,Urine Negative (Negative); Blood,Urine Moderate (Negative); Color,Urine Colorless; Glucose,Urine (UA) 4+ (Negative); Ketones,Urine Trace (Negative); Leukocyte Esterase,Urine Large (Negative); Nitrite,Urine Negative (Negative); PH, Urine 6.5 (5.0-8.0); Protein,Urine 2+ (Negative); RBC,Urine 10 /hpf (0-5); Specific Gravity,Urine 1.013 (1.001-1.035); Urobilinogen,Urine <2.0 mg/dL (<2.0); WBC,Urine >182 /hpf (0-5)
[2024-04-21] MEDS ORDERED: NALOXONE 0.4 MG/ML 1 ML VIAL IV PRN (19:22)
[2024-04-21 19:39] LABS: Glucose,Whole Blood 83 mg/dL (70-110)
[2024-04-21 20:32] LABS: Glucose,Whole Blood 91 mg/dL (70-110)
[2024-04-21 21:31] LABS: Glucose,Whole Blood 92 mg/dL (70-110)
[2024-04-22 05:35] LABS: Glucose,Whole Blood 301 mg/dL (70-110)
[2024-04-22] MEDS: INSULIN ASPART (NovoLOG) 100 UNIT/ML VIAL SQ SCH (06:30)
[2024-04-22 11:29] LABS: Glucose,Whole Blood 341 mg/dL (70-110)
--- NOTE | 2024-04-22 11:29 | P.PN ---
Subjective Progress Note Date: 04/22/24 89-year-old gentleman is electively brought into the hospital for a generator change by Dr. Talamantes. Patient had severely elevated blood sugars with over 600. Due to this the procedure was canceled and patient is admitted to hospital. They diagnosed a urinary tract infection on him and is currently on antibiotics. Patient has dementia and is refusing to take insulin and many of his medications at home. I spoke to the she states that her his blood sugars are usually very poorly controlled at home. I am going to resume the anticoagulant that he was on as I do not believe we will be doing the GEN change at this admission as we both need to treat the urinary tract infection and to better control his blood sugars On exam he appears comfortable at rest vital signs are stable chest exam reveals good air entry bilaterally heart exam reveals pleasant second heart sounds systolic murmur at the apex abdomen is soft exam extremities reveals mild edema sugar is around 300 this morning but was otherwise well-controlled. Persistent atrial fibrillation Sick sinus syndrome status post permanent pacemaker with battery depletion Plan: Will resume his home medications whenever the blood sugars are well-controlled and the UTI gets better we should be able to discharge him home and consider doing a generator change. It is not a bad idea to talk to patient about hospice care as he has dementia he is refusing to take his medications and the states that she is not able to do a whole lot in terms of convincing him to take medications hopefully the primary can address these issues Objective - Vital Signs Vital signs: Vital Signs Temp 98.1 F 04/22/24 08:55 Pulse 65 04/22/24 08:55 Resp 19 04/22/24 08:55 BP 147/71 04/22/24 08:55 Pulse Ox 97 04/22/24 08:55 FiO2 Intake & Output 04/21/24 04/22/24 04/22/24 18:59 06:59 18:59 Intake Total 980 Output Total 600 400 Balance -600 580 Weight 62.596 kg 60.5 kg Intake: Oral 980 Output: Urine 600 400 Straight 600 Other: Voiding Method Toilet Toilet # Voids 1 # Bowel Movements 1 - Labs CBC & Chem 7: 04/21/24 14:50 04/21/24 14:50 Labs: Abnormal Lab Results - Last 24 Hours (Table) 04/21/24 04/21/24 04/21/24 Range/Units 14:05 14:34 14:50 WBC 23.3 H (3.8-10.6) k/uL Neutrophils # 20.7 H (1.3-7.7) k/uL APTT (22.0-30.0) sec Potassium (3.5-5.1) mmol/L BUN (9-20) mg/dL Creatinine (0.66-1.25) mg/dL Glucose (74-99) mg/dL POC Glucose (mg/dL) 308 H 236 H (70-110) mg/dL Calcium (8.4-10.2) mg/dL Alkaline Phosphatase (38-126) U/L Urine Protein (Negative) Urine Glucose (UA) (Negative) Urine Ketones (Negative) Urine Blood (Negative) Ur Leukocyte Esterase (Negative) Urine RBC (0-5) /hpf Urine WBC (0-5) /hpf Urine WBC Clumps (None) /hpf 04/21/24 04/21/24 04/21/24 Range/Units 14:50 14:50 14:50 WBC (3.8-10.6) k/uL Neutrophils # (1.3-7.7) k/uL APTT 21.7 L (22.0-30.0) sec Potassium 3.4 L (3.5-5.1) mmol/L BUN 43 H (9-20) mg/dL Creatinine 1.63 H (0.66-1.25) mg/dL Glucose 171 H (74-99) mg/dL POC Glucose (mg/dL) (70-110) mg/dL Calcium 10.8 H (8.4-10.2) mg/dL Alkaline Phosphatase 148 H (38-126) U/L Urine Protein 2+ H (Negative) Urine Glucose (UA) 4+ H (Negative) Urine Ketones Trace H (Negative) Urine Blood Moderate H (Negative) Ur Leukocyte Esterase Large H (Negative) Urine RBC 10 H (0-5) /hpf Urine WBC >182 H (0-5) /hpf Urine WBC Clumps Few H (None) /hpf 04/21/24 04/22/24 Range/Units 17:31 05:34 WBC (3.8-10.6) k/uL Neutrophils # (1.3-7.7) k/uL APTT (22.0-30.0) sec Potassium (3.5-5.1) mmol/L BUN (9-20) mg/dL Creatinine (0.66-1.25) mg/dL Glucose (74-99) mg/dL POC Glucose (mg/dL) 117 H 301 H (70-110) mg/dL Calcium (8.4-10.2) mg/dL Alkaline Phosphatase (38-126) U/L Urine Protein (Negative) Urine Glucose (UA) (Negative) Urine Ketones (Negative) Urine Blood (Negative) Ur Leukocyte Esterase (Negative) Urine RBC (0-5) /hpf Urine WBC (0-5) /hpf Urine WBC Clumps (None) /hpf
[2024-04-22 13:43] VITALS: BMI 20.2
[2024-04-22 16:47] LABS: Glucose,Whole Blood 379 mg/dL (70-110)
--- NOTE | 2024-04-22 16:50 | P.HPIM ---
History of Present Illness H&P Date: 04/22/24 Chief Complaint: Hyperglycemic, generator change procedure canceled This is an 89-year-old gentleman presented yesterday for elective pacemaker generator change, blood sugars discovered to be in the 600 range, complaining of dysuria, frequency with concerns for acute UTI, elevated WBC and procedure was canceled with patient directed to the ER and admitted. Denies chest pain, palpitations or shortness of breath. Denies nausea vomiting or diarrhea. Denies abdominal pain. Family reported to the ER- poor appetite, failure to thrive, poor appetite. Patient reports he has been snacking frequently on cookies and ice cream. UA reported greater than 182 WBCs, large leukocytes, negative nitrates, moderate blood and trace ketones. Afebrile, WBC 23.3. hemoglobin 14.5, platelets 419, INR 21.7, sodium 144, potassium 3.4, bicarb 24 gap 16, BUN 43, creatinine 1.63. Blood sugars last night decrease into the 90s, currently 301. EKG paced, chest x-ray reported no acute cardiopulmonary disease process, left lower lobe nodular density. Review of Systems ROS Statement: Those systems with pertinent positive or pertinent negative responses have been documented in the HPI. ROS Other: All systems not noted in ROS Statement are negative. Past Medical History Past Medical History: Diabetes Mellitus, GERD/Reflux, Hypertension, Osteoarthritis (OA), Pneumonia Additional Past Medical History / Comment(s): hiatal hernia, bph., ddd with back pain, hx fall with right hip fx and surgery (05/27/2023)-using walker, pacemaker., hx of Covid and pneumonia (may 2023), pts states patient stopped his warfarin 6 months ago - advised to contact Dr. Akhtar. History of Any Multi-Drug Resistant Organisms: None Reported Past Surgical History: Joint Replacement, Pacemaker Additional Past Surgical History / Comment(s): saeid cataracts, rt hip fx surgery 05/27/2023, benign cyst removed 2023 posterior neck Past Anesthesia/Blood Transfusion Reactions: No Reported Reaction Type of Cardiac Device: Permanent Pacemaker Device Placement Date:: 2007 Past Psychological History: No Psychological Hx Reported Smoking Status: Former smoker Past Alcohol Use History: None Reported Additional Past Alcohol Use History / Comment(s): quit smoking 50 yrs, smoked for 15 yrs- mostly pipe or cigar Past Drug Use History: None Reported - Past Family History Mother Family Medical History: Cancer Father Family Medical History: Cancer Medications and Allergies Home Medications Medication Instructions Recorded Confirmed Type amLODIPine [Norvasc] 5 mg PO DAILY 03/15/16 04/21/24 History atenoloL [Tenormin] 25 mg PO DAILY 03/15/16 04/21/24 History hydrALAZINE HCL [Apresoline] 50 mg PO DIRECTED 03/15/16 04/21/24 History lisinopriL [Zestril] 20 mg PO BID 03/15/16 04/21/24 History Tamsulosin [Flomax] 0.4 mg PO DAILY 06/06/23 04/21/24 History Glimepiride [Amaryl] 4 mg PO AC-BID 10/05/23 04/21/24 History Pioglitazone [Actos] 15 mg PO DAILY 10/05/23 04/21/24 History hydroCHLOROthiazide 25 mg PO DAILY 10/05/23 04/21/24 History metFORMIN HCL [Glucophage] 1,000 mg PO BID 10/05/23 04/21/24 History Rivaroxaban [Xarelto] 15 mg PO DIRECTED 04/21/24 04/21/24 History Allergies Allergy/AdvReac Type Severity Reaction Status Date / Time No Known Allergies Allergy Verified 04/21/24 09:58 Physical Exam Vitals: Vital Signs Temp Pulse Pulse Resp BP BP Pulse Ox 04/22/24 12:00 98.1 F 58 L 19 153/78 98 04/22/24 08:55 98.1 F 65 19 147/71 97 04/22/24 04:00 60 18 170/74 96 04/22/24 02:00 75 20 04/22/24 00:00 97.5 F L 75 20 175/85 97 04/21/24 21:46 97.3 F L 61 18 153/69 99 04/21/24 21:06 97.8 F 60 19 140/80 96 04/21/24 20:00 61 16 04/21/24 19:42 97.3 F L 61 16 153/69 99 04/21/24 18:44 60 22 114/67 95 04/21/24 16:50 97.9 F 60 12 101/56 92 L Intake and Output 04/22/24 04/22/24 04/22/24 06:59 14:59 22:59 Intake Total 980 240 Output Total 400 Balance 580 240 Intake: Oral 980 240 Output: Urine 400 Other: Voiding Method Toilet Toilet # Voids 1 2 # Bowel Movements 1 Weight 60.5 kg 60.5 kg PHYSICAL EXAM: VITAL SIGNS: [As above] GENERAL: Alert and oriented 3, sitting up in bed, no acute distress HEENT: Normocephalic, Conjunctivae normal. eyes normal. MMM. NECK: Supple, No JVD. CARDIOVASCULAR: S1, S2 regular. System murmur RESPIRATION: Unlabored, equal air entry, Breath sounds diminished in the bases. ABDOMEN: Soft, nondistended, nontender . No guarding. +Bowel sounds. EXTREMITIES: No edema. no swelling , no clubbing, no cyanosis, positive DP pulses NERVOUS SYSTEM: Cranial N 2-12 grossly normal.No focal deficits.Strength and sensation grossly intact. Skin: Warm and dry, no rash. Results CBC & Chem 7: 04/21/24 14:50 04/21/24 14:50 Labs: Abnormal Lab Results - Last 24 Hours (Table) 04/21/24 04/21/24 04/22/24 Range/Units 14:50 17:31 05:34 POC Glucose (mg/dL) 117 H 301 H (70-110) mg/dL Urine Protein 2+ H (Negative) Urine Glucose (UA) 4+ H (Negative) Urine Ketones Trace H (Negative) Urine Blood Moderate H (Negative) Ur Leukocyte Esterase Large H (Negative) Urine RBC 10 H (0-5) /hpf Urine WBC >182 H (0-5) /hpf Urine WBC Clumps Few H (None) /hpf 04/22/24 Range/Units 11:27 POC Glucose (mg/dL) 341 H (70-110) mg/dL Urine Protein (Negative) Urine Glucose (UA) (Negative) Urine Ketones (Negative) Urine Blood (Negative) Ur Leukocyte Esterase (Negative) Urine RBC (0-5) /hpf Urine WBC (0-5) /hpf Urine WBC Clumps (None) /hpf Thrombosis Risk Factor Assmnt - Choose All That Apply Other Risk Factors: Yes Each Risk Factor Represents 3 Points: Age 75 years or older Other congenital or acquired thrombophilia - If yes, enter type in comment: No Thrombosis Risk Factor Assessment Total Risk Factor Score: 3 Thrombosis Risk Factor Assessment Level: Moderate Risk Assessment and Plan Assessment: Diabetes mellitus, uncontrolled, hemoglobin A1c 11.7 (11/05/2023),hyperglycemic, resulting in cancellation of pacemaker generator change- further diabetic teaching outpatient in clinic with PCP. Repeat A1c pending. Acute UTI Dehydration Acute on chronic kidney disease, stage III, baseline creatinine 1.3 secondary to all the above Sick sinus syndrome History of permanent pacemaker implantation secondary to complete heart block. Persistent atrial fibrillation on Coumadin Hypertension COPD Former nicotine dependence Gastroesophageal reflux disease Left lower lung nodular density measuring up to 15 mm reported per chest x-ray, nonemergent CT imaging recommended for correlation. Plan: Continue on current medication regimen ,monitoring and symptomatic treatment. Lantus long-acting insulin, NovoLog sliding scale initiated with close monitoring of Accu-Cheks. Ceftriaxone ordered to continue for acute UTI. Repeat labs ordered and pending. Cardiology consult in place, recommendations pending. The impression and plan of care has been dictated as directed. : I performed a history and examination of this patient, discussed the same with the dictator. I agree with the dictator's note ,documented as a scribe. Any additional findings or plans will be noted.
[2024-04-22] MEDS: INSULIN DETEMIR (LEVEMIR) 100 UNIT/ML SYR SQ SCH (17:06)
[2024-04-22] MEDS: SODIUM CHLORIDE 0.9% 1,000 ML IV SCH (17:07)
[2024-04-22] MEDS: PANTOPRAZOLE 40 MG/10 ML VIAL IVP SCH (17:07)
[2024-04-22] MEDS: TAMSULOSIN 0.4 MG CAP.ER.24H PO SCH (17:07)
[2024-04-22] MEDS: RIVAROXABAN 15 MG TAB PO SCH (17:07)
[2024-04-22 17:28] LABS: HCT 43.3 % (39.0-53.0); HGB 13.7 gm/dL (13.0-17.5); MCH 30.9 pg (25.0-35.0); MCHC 31.7 g/dL (31.0-37.0); MCV 97.4 fL (80.0-100.0); Mean Platelet Volume 9.5; Platelet Count 346 k/uL (150-450); RBC 4.44 m/uL (4.30-5.90); RDW 13.5 % (11.5-15.5); WBC 16.5 k/uL (3.8-10.6)
[2024-04-22 17:35] LABS: African American GFR (CKD) 61 (>60 ml/min/1.73 sqM); Anion Gap 17 mmol/L; Blood Urea Nitrogen 39 mg/dL (9-20); Calcium 9.7 mg/dL (8.4-10.2); Carbon Dioxide 17 mmol/L (22-30); Chloride 101 mmol/L (98-107); Glucose 359 mg/dL (74-99); Magnesium 1.8 mg/dL (1.6-2.3); Non-African American GFR(CKD) 52 (>60 ml/min/1.73 sqM); Potassium 4.4 mmol/L (3.5-5.1); Sodium 135 mmol/L (137-145)
[2024-04-22 20:19] LABS: Glucose,Whole Blood 420 mg/dL (70-110)
[2024-04-23] MEDS ORDERED: RX INFO: IV CONTRAST WAS GIVEN 1 EACH MISC MISCELLANE PRN (03:39)
--- NOTE | 2024-04-23 04:04 | P.CNPUL ---
History of Present Illness Consult date: 04/23/24 Requesting physician: Carola Garza Reason for consult: abnormal CXR/CT Chief complaint: Brought in for elective pacemaker generator exchange, found hyperglycemic History of present illness: Patient is an 89-year-old male with past medical history significant for complete heart block, permanent pacemaker, and uncontrolled diabetes mellitus. He was brought in on 04/21/2024 for an elective pacemaker generator exchange. The procedure never took place as the patient had severely elevated blood sugars at 600. Also, reportedly complained of dysuria and urinary frequency, and thought to have a urinary tract infection. He denies this on my interview. He is a questionable historian. Patient did have a chest x-ray which showed a possible left lower lobe 1.5 cm pulmonary nodule. For this reason, a pulmonary consult was placed. Patient denies any pulmonary symptoms such as shortness of breath, cough, chest pain, hemoptysis. He denies any known history of pulmonary nodules or cancer. Does admit to recent weight loss, unable to quantify. Appetite has been poor. States that he briefly smoked in his 20s. Denies history of COPD. He is currently lying in bed, on room air, in no acute respiratory distress. CBC: WBC count 16.5, hemoglobin 13.7, hematocrit 43.3, platelets 346. CMP: Sodium 135, potassium 4.4, chloride 101, serum bicarb 17, BUN 39, creatinine 1.23, glucose 359. Hemoglobin A1c 16.3. Urinalysis positive with large leukocytes esterase, proteinuria, trace ketones, glucosuria. Urine culture is pending. Empirically covered on Rocephin. Normal saline infusing at 50 mL/h. Anticoagulated on Xarelto. Hemodynamics are stable. Review of Systems REVIEW OF SYSTEMS: CONSTITUTIONAL: Admits weight loss, unable to quantify amount or timeframe EYES: Denies change in vision. EARS, NOSE, MOUTH, THROAT: Denies headaches, denies sore throat. CARDIOVASCULAR: Denies chest pain, palpitations or syncopal episodes. RESPIRATORY: Denies shortness of breath, cough, congestion or hemoptysis. GASTROINTESTINAL: Denies change in appetite, abdominal pain, nausea and vomiting, or diarrhea GENITOURINARY: See HPI MUSKULOSKELETAL: Denies pain, denies swelling. INTEGUMENTARY: Denies rash, denies eczema. NEUROLOGICAL: Denies recent memory loss, no recent seizure activity. PSYCHIATRIC: Denies anxiety, denies depression. HEMATOLOGIC/LYMPHATIC: Denies anemia, denies enlarged lymph node Past Medical History Past Medical History: Diabetes Mellitus, GERD/Reflux, Hypertension, Osteoarthritis (OA), Pneumonia Additional Past Medical History / Comment(s): hiatal hernia, bph., ddd with back pain, hx fall with right hip fx and surgery (05/27/2023)-using walker, pacemaker., hx of Covid and pneumonia (may 2023), pts states patient stopped his warfarin 6 months ago - advised to contact Dr. Akhtar. History of Any Multi-Drug Resistant Organisms: None Reported Past Surgical History: Joint Replacement, Pacemaker Additional Past Surgical History / Comment(s): saeid cataracts, rt hip fx surgery 05/27/2023, benign cyst removed 2023 posterior neck Past Anesthesia/Blood Transfusion Reactions: No Reported Reaction Type of Cardiac Device: Permanent Pacemaker Device Placement Date:: 2007 Past Psychological History: No Psychological Hx Reported Smoking Status: Former smoker Past Alcohol Use History: None Reported Additional Past Alcohol Use History / Comment(s): quit smoking 50 yrs, smoked for 15 yrs- mostly pipe or cigar Past Drug Use History: None Reported - Past Family History Mother Family Medical History: Cancer Father Family Medical History: Cancer Medications and Allergies Home Medications Medication Instructions Recorded Confirmed Type amLODIPine [Norvasc] 5 mg PO DAILY 03/15/16 04/21/24 History atenoloL [Tenormin] 25 mg PO DAILY 03/15/16 04/21/24 History hydrALAZINE HCL [Apresoline] 50 mg PO DIRECTED 03/15/16 04/21/24 History lisinopriL [Zestril] 20 mg PO BID 03/15/16 04/21/24 History Tamsulosin [Flomax] 0.4 mg PO DAILY 06/06/23 04/21/24 History Glimepiride [Amaryl] 4 mg PO AC-BID 10/05/23 04/21/24 History Pioglitazone [Actos] 15 mg PO DAILY 10/05/23 04/21/24 History hydroCHLOROthiazide 25 mg PO DAILY 10/05/23 04/21/24 History metFORMIN HCL [Glucophage] 1,000 mg PO BID 10/05/23 04/21/24 History Rivaroxaban [Xarelto] 15 mg PO DIRECTED 04/21/24 04/21/24 History Allergies Allergy/AdvReac Type Severity Reaction Status Date / Time No Known Allergies Allergy Verified 04/21/24 09:58 Physical Exam Vitals: Vital Signs Temp Pulse Resp BP Pulse Ox 04/22/24 23:16 97.6 F 68 16 126/70 99 04/22/24 20:00 97.4 F L 60 14 127/71 99 04/22/24 16:00 61 19 150/70 99 04/22/24 12:00 98.1 F 58 L 19 153/78 98 04/22/24 08:55 98.1 F 65 19 147/71 97 04/22/24 04:00 60 18 170/74 96 Intake and Output 04/22/24 04/22/24 04/23/24 14:59 22:59 06:59 Intake Total 240 240 Output Total 225 Balance 240 240 -225 Intake: Oral 240 240 Output: Urine 225 Other: Voiding Method Toilet Toilet Toilet # Voids 2 1 # Bowel Movements 1 Weight 60.5 kg GENERAL EXAM: Alert, 89-year-old white male, lying in bed, comfortable in no apparent distress. HEAD: Normocephalic and atraumatic EYES: Normal reaction of pupils, equal size. NOSE: Clear with pink turbinates. THROAT: No erythema or exudates. NECK: No masses, no JVD. CHEST: No chest wall deformity. Implanted left chest device LUNGS: Equal air entry with no crackles, wheeze, rhonchi or dullness. On room air. No conversational dyspnea or accessory muscle use.. CVS: S1 and S2 normal with no audible murmur, regular rhythm. No extra heart sounds ABDOMEN: No hepatosplenomegaly, active bowel sounds, no guarding or rigidity. SPINE: No scoliosis or deformity SKIN: No rashes CENTRAL NERVOUS SYSTEM: No focal deficits, tone is normal in all 4 extremities. EXTREMITIES: There is no peripheral edema, clubbing, or cyanosis. Peripheral pulses are intact. Results - Laboratory Findings CBC and BMP: 04/22/24 16:47 04/22/24 16:47 PT/INR, D-dimer PT 10.9 sec (10.0-12.5) 04/21/24 14:50 INR 1.0 (<1.2) 04/21/24 14:50 Abnormal lab findings: Abnormal Labs 04/21/24 04/21/24 04/21/24 14:05 14:34 14:50 WBC 23.3 H Neutrophils # 20.7 H APTT Sodium Potassium Carbon Dioxide BUN Creatinine Glucose POC Glucose (mg/dL) 308 H 236 H Hemoglobin A1c Calcium Alkaline Phosphatase Urine Protein Urine Glucose (UA) Urine Ketones Urine Blood Ur Leukocyte Esterase Urine RBC Urine WBC Urine WBC Clumps 04/21/24 04/21/24 04/21/24 14:50 14:50 14:50 WBC Neutrophils # APTT 21.7 L Sodium Potassium 3.4 L Carbon Dioxide BUN 43 H Creatinine 1.63 H Glucose 171 H POC Glucose (mg/dL) Hemoglobin A1c Calcium 10.8 H Alkaline Phosphatase 148 H Urine Protein 2+ H Urine Glucose (UA) 4+ H Urine Ketones Trace H Urine Blood Moderate H Ur Leukocyte Esterase Large H Urine RBC 10 H Urine WBC >182 H Urine WBC Clumps Few H 04/21/24 04/22/24 04/22/24 17:31 05:34 11:27 WBC Neutrophils # APTT Sodium Potassium Carbon Dioxide BUN Creatinine Glucose POC Glucose (mg/dL) 117 H 301 H 341 H Hemoglobin A1c Calcium Alkaline Phosphatase Urine Protein Urine Glucose (UA) Urine Ketones Urine Blood Ur Leukocyte Esterase Urine RBC Urine WBC Urine WBC Clumps 04/22/24 04/22/24 04/22/24 16:45 16:47 16:47 WBC 16.5 H Neutrophils # APTT Sodium Potassium Carbon Dioxide BUN Creatinine Glucose POC Glucose (mg/dL) 379 H Hemoglobin A1c 16.3 H Calcium Alkaline Phosphatase Urine Protein Urine Glucose (UA) Urine Ketones Urine Blood Ur Leukocyte Esterase Urine RBC Urine WBC Urine WBC Clumps 04/22/24 04/22/24 16:47 20:18 WBC Neutrophils # APTT Sodium 135 L Potassium Carbon Dioxide 17 L BUN 39 H Creatinine Glucose 359 H POC Glucose (mg/dL) 420 H Hemoglobin A1c Calcium Alkaline Phosphatase Urine Protein Urine Glucose (UA) Urine Ketones Urine Blood Ur Leukocyte Esterase Urine RBC Urine WBC Urine WBC Clumps - Diagnostic Findings Chest x-ray: image reviewed Assessment and Plan Assessment: Left lower lobe pulmonary nodule, measuring 1.5 cm Uncontrolled diabetes mellitus type 2, currently being covered with a combination of Levemir and sliding scale insulin. Hemoglobin's A1c elevated at 16 History of complete AV block and dual-chamber pacemaker, originally brought in for pacemaker generator exchange, procedure has been put on hold History of A.fib, currently paced rhythm Acute kidney injury, improved Possible UTI History of prostate disorder Hypertension Plan: Will order CT of the chest with contrast to further evaluate pulmonary nodule in question Further recommendations to follow Continue IV maintenance fluids Admitting physician managing patient's hyperglycemia Medication compliance encouraged Anticoagulated on Xarelto We will continue to follow I have personally seen and examined the patient, performed the documentation and the assessment and plan as written. Number of minutes spent on the visit:20 Time with Patient: Greater than 30
[2024-04-23 05:57] LABS: Glucose,Whole Blood 92 mg/dL (70-110)
[2024-04-23 08:17] LABS: Glucose,Whole Blood 138 mg/dL (70-110)
[2024-04-23 08:24] VITALS: RESP 17
[2024-04-23] MEDS: amLODIPine 5 MG TAB PO SCH (08:28)
[2024-04-23 10:05] LABS: Basophils % (A) 0 %; Eosinophils % (A) 0 %; HCT 37.9 % (39.0-53.0); HGB 12.1 gm/dL (13.0-17.5); Lymphocytes # (A) 1.4 k/uL (1.0-4.8); Lymphocytes % (A) 9 %; MCH 30.5 pg (25.0-35.0); MCV 95.3 fL (80.0-100.0); Mean Platelet Volume 9.1; Monocytes # (A) 0.8 k/uL (0-1.0); Monocytes % (A) 5 %; Neutrophils # (A) 12.4 k/uL (1.3-7.7); Neutrophils % (A) 84 %; Platelet Count 337 k/uL (150-450); RBC 3.98 m/uL (4.30-5.90); RDW 13.2 % (11.5-15.5); WBC 14.7 k/uL (3.8-10.6)
--- NOTE | 2024-04-23 10:13 | CT ---
EXAMINATION TYPE: CT chest w con DATE OF EXAM: 04/23/2024 COMPARISON: 04/21/2024 HISTORY: Abnormal CXR finding; pulmonary nodule CT DLP: 269.7 mGycm Automated exposure control for dose reduction was used. TECHNIQUE: CT scan of the chest is performed with IV Contrast, patient injected with 80ml mL of Isovue 300. MIP Images are created on CT scanner and reviewed. 3D reconstructed images are created on an independent workstation and reviewed. FINDINGS: LUNGS: Biapical pleural thickening with apical subpleural micronodule laterally which has a benign ap pearance. There is a peripheral enhancing nodule in the left lower lobe measuring 1.5 cm. Tiny amount of adjacent pleural fluid. Additional areas of subsegmental atelectasis or consolidation. MEDIASTINUM: Borderline mediastinal and hilar lymph nodes. Atherosclerotic change of the aorta. Moder ate coronary artery disease. Cardiac lead device is incidentally noted. Trace of pericardial fluid. OTHER: Degenerative changes of the spine. Shoulder arthropathy. Nonspecific thickening left adrenal gland. IMPRESSION: 1. There is a 1.5 cm nodule left lower lobe. Underlying malignancy in the differential diagnosis, rec ommend PET CT scan. Follow-up recommendations for incidental pulmonary nodules are per [employer] or [employer].
[2024-04-23 10:24] LABS: African American GFR (CKD) 58 (>60 ml/min/1.73 sqM); Anion Gap 6 mmol/L; Blood Urea Nitrogen 37 mg/dL (9-20); Carbon Dioxide 22 mmol/L (22-30); Chloride 102 mmol/L (98-107); Glucose 217 mg/dL (74-99); Non-African American GFR(CKD) 50 (>60 ml/min/1.73 sqM); Potassium 3.6 mmol/L (3.5-5.1); Sodium 130 mmol/L (137-145)
[2024-04-23 11:34] LABS: Glucose,Whole Blood 262 mg/dL (70-110)
--- NOTE | 2024-04-23 15:04 | P.PN ---
Subjective Progress Note Date: 04/23/24 89-year-old gentleman is electively brought into the hospital for a generator change by Dr. Talamantes. Patient had severely elevated blood sugars with over 600. Due to this the procedure was canceled and patient is admitted to hospital. They diagnosed a urinary tract infection on him and is currently on antibiotics. Patient has dementia and is refusing to take insulin and many of his medications at home. I spoke to the she states that her his blood sugars are usually very poorly controlled at home. I am going to resume the anticoagulant that he was on as I do not believe we will be doing the GEN change at this admission as we both need to treat the urinary tract infection and to better control his blood sugars 04/23 repeat blood work reveals WBC 14.7, hemoglobin 12, BUN 37 creatinine 1.27. Patient is anticipating discharge home today.Blood pressure 146/77, heart rate 62, pulse ox 96% on room air. On exam he appears comfortable at rest vital signs are stable chest exam reveals good air entry bilaterally heart exam reveals pleasant second heart sounds systolic murmur at the apex, abdomen is soft exam extremities reveals mild edema sugar is around 300 this morning but was otherwise well-controlled. Persistent atrial fibrillation Sick sinus syndrome status post permanent pacemaker with battery depletion Plan: Patient is cleared for discharge from cardiology. Plan is for follow-up and generator change at a later time. Nurse practitioner note has been reviewed, I agree with documented findings and plan of care. Patient was seen and examined. Objective - Vital Signs Vital signs: Vital Signs Temp 98.6 F 04/23/24 07:56 Pulse 60 04/23/24 07:56 Resp 17 04/23/24 07:56 BP 143/68 04/23/24 07:56 Pulse Ox 98 04/23/24 07:56 FiO2 Intake & Output 04/22/24 04/23/24 04/23/24 18:59 06:59 18:59 Intake Total 480 Output Total 400 Balance 480 -400 Weight 60.5 kg 64 kg Intake: Oral 480 Output: Urine 400 Other: Voiding Method Toilet Toilet # Voids 1 # Bowel Movements 1 - Labs CBC & Chem 7: 04/23/24 09:01 04/23/24 09:01 Labs: Abnormal Lab Results - Last 24 Hours (Table) 04/22/24 04/22/24 04/22/24 Range/Units 11:27 16:45 16:47 WBC (3.8-10.6) k/uL Sodium (137-145) mmol/L Carbon Dioxide (22-30) mmol/L BUN (9-20) mg/dL Glucose (74-99) mg/dL POC Glucose (mg/dL) 341 H 379 H (70-110) mg/dL Hemoglobin A1c 16.3 H (<=6.0) % 04/22/24 04/22/24 04/22/24 Range/Units 16:47 16:47 20:18 WBC 16.5 H (3.8-10.6) k/uL Sodium 135 L (137-145) mmol/L Carbon Dioxide 17 L (22-30) mmol/L BUN 39 H (9-20) mg/dL Glucose 359 H (74-99) mg/dL POC Glucose (mg/dL) 420 H (70-110) mg/dL Hemoglobin A1c (<=6.0) % 04/23/24 Range/Units 08:15 WBC (3.8-10.6) k/uL Sodium (137-145) mmol/L Carbon Dioxide (22-30) mmol/L BUN (9-20) mg/dL Glucose (74-99) mg/dL POC Glucose (mg/dL) 138 H (70-110) mg/dL Hemoglobin A1c (<=6.0) % Microbiology - Last 24 Hours (Table) 04/21/24 14:50 Urine Culture - Preliminary Urine,Voided
[2024-04-23 16:48] LABS: Glucose,Whole Blood 284 mg/dL (70-110)
[2024-04-23 20:25] LABS: Glucose,Whole Blood 432 mg/dL (70-110)
[2024-04-23] MEDS: INSULIN DETEMIR (LEVEMIR) 100 UNIT/ML SYR SQ SCH (20:41)
[2024-04-23] MEDS: ACETAMINOPHEN TAB 325 MG TAB PO PRN (21:12)
[2024-04-23 23:07] LABS: Glucose,Whole Blood 61 mg/dL (70-110)
[2024-04-23 23:12] LABS: Glucose,Whole Blood 46 mg/dL (70-110)
[2024-04-23 23:29] LABS: Glucose,Whole Blood 57 mg/dL (70-110)
[2024-04-23 23:49] LABS: Glucose,Whole Blood 59 mg/dL (70-110)
[2024-04-24 00:10] LABS: Glucose,Whole Blood 73 mg/dL (70-110)
[2024-04-24 02:01] LABS: Glucose,Whole Blood 155 mg/dL (70-110)
[2024-04-24] MEDS: INSULIN DETEMIR (LEVEMIR) 100 UNIT/ML SYR SQ ONE (04:12)
[2024-04-24] MEDS: INSULIN ASPART (NovoLOG) 100 UNIT/ML VIAL SQ ONE (04:12)
[2024-04-24] MEDS: DEXTROSE 50% SYRINGE 50 ML IVP ONE (04:14)
[2024-04-24 06:08] LABS: Glucose,Whole Blood 101 mg/dL (70-110)
[2024-04-24] MEDS: PANTOPRAZOLE 40 MG TABLET PO SCH (06:18)
[2024-04-24 07:30] LABS: Glucose,Whole Blood 81 mg/dL (70-110)
[2024-04-24 09:12] LABS: Glucose,Whole Blood 137 mg/dL (70-110)
[2024-04-24 09:41] VITALS: PULSE 60
[2024-04-24 11:23] LABS: Glucose,Whole Blood 139 mg/dL (70-110)
--- NOTE | 2024-04-24 12:14 | P.PN ---
Subjective Progress Note Date: 04/24/24 Principal diagnosis: Urinary tract infection, dehydration. Patient is an 89-year-old male with past medical history significant for complete heart block, permanent pacemaker, and uncontrolled diabetes mellitus. He was brought in on 04/21/2024 for an elective pacemaker generator exchange. The procedure never took place as the patient had severely elevated blood sugars at 600. Also, reportedly complained of dysuria and urinary frequency, and thought to have a urinary tract infection. He denies this on my interview. He is a questionable historian. Patient did have a chest x-ray which showed a possible left lower lobe 1.5 cm pulmonary nodule. For this reason, a pulmonary consult was placed. Patient denies any pulmonary symptoms such as shortness of breath, cough, chest pain, hemoptysis. He denies any known history of pulmonary nodules or cancer. Does admit to recent weight loss, unable to quantify. Appetite has been poor. States that he briefly smoked in his 20s. Denies history of COPD. He is currently lying in bed, on room air, in no acute respiratory distress. CBC: WBC count 16.5, hemoglobin 13.7, hematocrit 43.3, platelets 346. CMP: Sodium 135, potassium 4.4, chloride 101, serum bicarb 17, BUN 39, creatinine 1.23, glucose 359. Hemoglobin A1c 16.3. Urinalysis positive with large leukocytes esterase, proteinuria, trace ketones, glucosuria. Urine culture is pending. Empirically covered on Rocephin. Normal saline infusing at 50 mL/h. Anticoagulated on Xarelto. Hemodynamics are stable. Progress note dated April 24, 2024. 89-year-old male seen in room 363. The patient was admitted with a diagnosis of hyperglycemia, dysuria, urinary frequency, and likely urinary tract infection. The chest x-ray that was done showed a possible left lower lobe pulmonary nodule measuring 1.5 cm. He denied any pulmonary complaints. CT scan revealed a 1.5 cm nodule left lower lobe, and the patient will be scheduled for an outpatient PET scan. Currently, the patient is on room air. He is getting saline at 50 cc an hour. I did explain to the patient and to his , that the PET scan can only be done as an outpatient. Labs include a glucose of 139. Objective - Vital Signs Vital signs: Vital Signs Temp 98 F 04/24/24 09:15 Pulse 60 04/24/24 09:15 Resp 17 04/24/24 09:15 BP 131/69 04/24/24 09:15 Pulse Ox 93 L 04/24/24 09:15 FiO2 Intake & Output 04/23/24 04/24/24 04/24/24 18:59 06:59 18:59 Intake Total 476 118 Output Total 100 1000 Balance 376 -1000 118 Weight 61.5 kg Intake: Oral 476 118 Output: Urine 100 1000 Other: Voiding Method Toilet Toilet # Voids 3 # Bowel Movements 2 - Exam No acute distress, oriented 3. HEENT examination is grossly unremarkable. Mucous membranes are moist. No oral lesions. Neck supple. Full range of motion. No adenopathy thyromegaly or neck vein distention. Cardiovascular examination reveals regular rhythm rate. S1-S2 normal. No S3 or S4. No discernible murmur noted. Lungs reveal clear breath sounds. Breath sounds are equal bilaterally. No adventitious lung sounds including wheezes rhonchi or crackles. Abdomen soft bowel sounds are heard. No masses or tenderness. Extremities are intact. No cyanosis clubbing or edema. Skin is without rash or lesion. Neurologic examination is brief but nonfocal. - Labs CBC & Chem 7: 04/23/24 09:01 04/23/24 23:42 Labs: Abnormal Lab Results - Last 24 Hours (Table) 04/23/24 04/23/24 04/23/24 Range/Units 16:46 20:23 23:06 Glucose (74-99) mg/dL POC Glucose (mg/dL) 284 H 432 H 61 L (70-110) mg/dL 04/23/24 04/23/24 04/24/24 Range/Units 23:28 23:42 09:11 Glucose 48 L* (74-99) mg/dL POC Glucose (mg/dL) 57 L 137 H (70-110) mg/dL 04/24/24 Range/Units 11:21 Glucose (74-99) mg/dL POC Glucose (mg/dL) 139 H (70-110) mg/dL Assessment and Plan Assessment: Left lower lobe pulmonary nodule, measuring 1.5 cm. Uncontrolled diabetes mellitus type 2. History of complete AV block and dual-chamber pacemaker. History of A.fib. Acute kidney injury, improved. Possible UTI. History of prostate disorder. Hypertension. Plan: Plan dated April 24, 2024. The patient is doing well. The patient will need a outpatient PET scan to better evaluate the pulmonary nodule, in the left lower lobe. That was explained to the patient and the patient's . The patient is not have any pulmonary complaints at this time. We will continue to follow. The patient is currently not receiving any supplemental oxygen. He is on saline at 50 cc an hour. Time with Patient: Less than 30
--- NOTE | 2024-04-24 12:54 | P.PN ---
Subjective Progress Note Date: 04/24/24 89-year-old gentleman is electively brought into the hospital for a generator change by Dr. Talamantes. Patient had severely elevated blood sugars with over 600. Due to this the procedure was canceled and patient is admitted to hospital. They diagnosed a urinary tract infection on him and is currently on antibiotics. Patient has dementia and is refusing to take insulin and many of his medications at home. I spoke to the she states that her his blood sugars are usually very poorly controlled at home. I am going to resume the anticoagulant that he was on as I do not believe we will be doing the GEN change at this admission as we both need to treat the urinary tract infection and to better control his blood sugars 04/23 repeat blood work reveals WBC 14.7, hemoglobin 12, BUN 37 creatinine 1.27. Patient is anticipating discharge home today.Blood pressure 146/77, heart rate 62, pulse ox 96% on room air. 04/24 Blood pressure 131/69, heart rate in the 60s, pulse ox 93% on room air. CT chest performed yesterday revealed a 1.5 cm nodule left lower lobe. Underlying malignancy is within the differential. Recommend PET CT. Patient is expecting discharge home today. On exam he appears comfortable at rest vital signs are stable chest exam reveals good air entry bilaterally heart exam reveals pleasant second heart sounds systolic murmur at the apex, abdomen is soft exam extremities reveals mild edema sugar is around 300 this morning but was otherwise well-controlled. Persistent atrial fibrillation Sick sinus syndrome status post permanent pacemaker with battery depletion Plan: Patient is cleared for discharge from cardiology. Plan is for follow-up and g enerator change at a later time. Nurse practitioner note has been reviewed, I agree with documented findings and plan of care. Patient was seen and examined. Objective - Vital Signs Vital signs: Vital Signs Temp 97.5 F L 04/24/24 04:00 Pulse 65 04/24/24 04:00 Resp 17 04/24/24 04:00 BP 125/78 04/24/24 04:00 Pulse Ox 98 04/24/24 04:00 FiO2 Intake & Output 04/23/24 04/24/24 04/24/24 18:59 06:59 18:59 Intake Total 476 Output Total 100 1000 Balance 376 -1000 Weight 61.5 kg Intake: Oral 476 Output: Urine 100 1000 Other: Voiding Method Toilet # Voids 3 # Bowel Movements 2 - Labs CBC & Chem 7: 04/23/24 09:01 04/23/24 23:42 Labs: Abnormal Lab Results - Last 24 Hours (Table) 04/23/24 04/23/24 04/23/24 Range/Units 09:01 09:01 11:32 WBC 14.7 H (3.8-10.6) k/uL RBC 3.98 L (4.30-5.90) m/uL Hgb 12.1 L (13.0-17.5) gm/dL Hct 37.9 L (39.0-53.0) % Neutrophils # 12.4 H (1.3-7.7) k/uL Sodium 130 L (137-145) mmol/L BUN 37 H (9-20) mg/dL Creatinine 1.27 H (0.66-1.25) mg/dL Glucose 217 H (74-99) mg/dL POC Glucose (mg/dL) 262 H (70-110) mg/dL 04/23/24 04/23/24 04/23/24 Range/Units 16:46 20:23 23:06 WBC (3.8-10.6) k/uL RBC (4.30-5.90) m/uL Hgb (13.0-17.5) gm/dL Hct (39.0-53.0) % Neutrophils # (1.3-7.7) k/uL Sodium (137-145) mmol/L BUN (9-20) mg/dL Creatinine (0.66-1.25) mg/dL Glucose (74-99) mg/dL POC Glucose (mg/dL) 284 H 432 H 61 L (70-110) mg/dL 04/23/24 04/23/24 Range/Units 23:28 23:42 WBC (3.8-10.6) k/uL RBC (4.30-5.90) m/uL Hgb (13.0-17.5) gm/dL Hct (39.0-53.0) % Neutrophils # (1.3-7.7) k/uL Sodium (137-145) mmol/L BUN (9-20) mg/dL Creatinine (0.66-1.25) mg/dL Glucose 48 L* (74-99) mg/dL POC Glucose (mg/dL) 57 L (70-110) mg/dL
--- NOTE | 2024-04-24 13:32 | P.PN ---
Subjective Progress Note Date: 04/23/24 H&P Date: 04/22/24 Chief Complaint: Hyperglycemic, generator change procedure canceled This is an 89-year-old gentleman presented yesterday for elective pacemaker generator change, blood sugars discovered to be in the 600 range, complaining of dysuria, frequency with concerns for acute UTI, elevated WBC and procedure was canceled with patient directed to the ER and admitted. Denies chest pain, palpitations or shortness of breath. Denies nausea vomiting or diarrhea. Denies abdominal pain. Family reported to the ER- poor appetite, failure to thrive, poor appetite. Patient reports he has been snacking frequently on cookies and ice cream. UA reported greater than 182 WBCs, large leukocytes, negative nitrates, moderate blood and trace ketones. Afebrile, WBC 23.3. hemoglobin 14.5, platelets 419, INR 21.7, sodium 144, potassium 3.4, bicarb 24 g ap 16, BUN 43, creatinine 1.63. Blood sugars last night decrease into the 90s, currently 301. EKG paced, chest x-ray reported no acute cardiopulmonary disease process, left lower lobe nodular density. 04/23/2024 blood sugars better controlled, on Levemir. Hemoglobin A1c 16.3- discussed with patient and patient will be discharged home on Lantus insulin and metformin with further diabetic teaching outpatient in clinic with PCP. Consistent carb diet reinforced with dietitian consult in place. renal function returned to baseline, 1.23 with holding lisinopril and hydrochlorothiazide. Denies chest pain, palpitations or shortness of breath. Evaluated by pulmonary regarding left lower lobe nodular density, recommending outpatient PET scan for further follow-up. Objective - Vital Signs Vital signs: Vital Signs Temp 98.6 F 04/23/24 08:27 Pulse 60 04/23/24 08:27 Resp 17 04/23/24 08:27 BP 143/68 04/23/24 08:27 Pulse Ox 95 04/23/24 08:27 FiO2 Intake & Output 04/22/24 04/23/24 04/23/24 18:59 06:59 18:59 Intake Total 480 118 Output Total 400 100 Balance 480 -400 18 Weight 60.5 kg 64 kg Intake: Oral 480 118 Output: Urine 400 100 Other: Voiding Method Toilet Toilet Toilet # Voids 1 # Bowel Movements 1 - Exam PHYSICAL EXAM: VITAL SIGNS: [As above] GENERAL: Alert and oriented 3, sitting up in bed, no acute distress HEENT: Normocephalic, Conjunctivae normal. eyes normal. MMM. NECK: Supple, No JVD. CARDIOVASCULAR: S1, S2 regular. System murmur RESPIRATION: Unlabored, equal air entry, Breath sounds diminished in the bases. ABDOMEN: Soft, nondistended, nontender . No guarding. +Bowel sounds. EXTREMITIES: No edema. no swelling , no clubbing, no cyanosis, positive DP pulses NERVOUS SYSTEM: Cranial N 2-12 grossly normal.No focal deficits.Strength and sensation grossly intact. Skin: Warm and dry, no rash. - Labs CBC & Chem 7: 04/23/24 09:01 04/23/24 23:42 Labs: Abnormal Lab Results - Last 24 Hours (Table) 04/22/24 04/22/24 04/22/24 Range/Units 16:45 16:47 16:47 WBC 16.5 H (3.8-10.6) k/uL RBC (4.30-5.90) m/uL Hgb (13.0-17.5) gm/dL Hct (39.0-53.0) % Neutrophils # (1.3-7.7) k/uL Sodium (137-145) mmol/L Carbon Dioxide (22-30) mmol/L BUN (9-20) mg/dL Creatinine (0.66-1.25) mg/dL Glucose (74-99) mg/dL POC Glucose (mg/dL) 379 H (70-110) mg/dL Hemoglobin A1c 16.3 H (<=6.0) % 04/22/24 04/22/24 04/23/24 Range/Units 16:47 20:18 08:15 WBC (3.8-10.6) k/uL RBC (4.30-5.90) m/uL Hgb (13.0-17.5) gm/dL Hct (39.0-53.0) % Neutrophils # (1.3-7.7) k/uL Sodium 135 L (137-145) mmol/L Carbon Dioxide 17 L (22-30) mmol/L BUN 39 H (9-20) mg/dL Creatinine (0.66-1.25) mg/dL Glucose 359 H (74-99) mg/dL POC Glucose (mg/dL) 420 H 138 H (70-110) mg/dL Hemoglobin A1c (<=6.0) % 04/23/24 04/23/24 04/23/24 Range/Units 09:01 09:01 11:32 WBC 14.7 H (3.8-10.6) k/uL RBC 3.98 L (4.30-5.90) m/uL Hgb 12.1 L (13.0-17.5) gm/dL Hct 37.9 L (39.0-53.0) % Neutrophils # 12.4 H (1.3-7.7) k/uL Sodium 130 L (137-145) mmol/L Carbon Dioxide (22-30) mmol/L BUN 37 H (9-20) mg/dL Creatinine 1.27 H (0.66-1.25) mg/dL Glucose 217 H (74-99) mg/dL POC Glucose (mg/dL) 262 H (70-110) mg/dL Hemoglobin A1c (<=6.0) % Microbiology - Last 24 Hours (Table) 04/21/24 14:50 Urine Culture - Preliminary Urine,Voided Assessment and Plan Assessment: Diabetes mellitus, uncontrolled, hemoglobin A1c 11.7 (11/05/2023), currently 16.3 ,hyperglycemic, resulting in cancellation of pacemaker generator change- further diabetic teaching outpatient in clinic with PCP. Acute UTI, culture in progress Dehydration Acute on chronic kidney disease, stage III, baseline creatinine 1.3 secondary to all the above, improved Left lower lobe pulmonary nodule measuring 1.5 cm, outpatient PET/CT as per pulmonary recommended Sick sinus syndrome History of permanent pacemaker implantation secondary to complete heart block. Persistent atrial fibrillation on Xarelto Hypertension COPD Former nicotine dependence Gastroesophageal reflux disease Left lower lung nodular density measuring up to 15 mm reported per chest x-ray, nonemergent CT imaging recommended for correlation. Plan: Continue on current medication regimen ,monitoring and symptomatic treatment. Maintain antibiotics , urinary culture pending .discharge planning in progress for tomorrow with home care; patient will require Lantus insulin at [place]. Cardiology resuming Xarelto, has cleared patient for discharge , recommendi further follow-up for rescheduling of generator change. Evaluated by pulmonary recommending further follow-up outpatient/PET scan. The impression and plan of care has been dictated as directed. : I performed a history and examination of this patient, discussed the same with the dictator. I agree with the dictator's note ,documented as a scribe. Any additional findings or plans will be noted.
[2024-04-24 13:35] VITALS: BP 130/70; TEMP 98.6
--- NOTE | 2024-04-24 13:37 | P.DS ---
Providers Date of admission: 04/21/24 19:23 Expected date of discharge: 04/24/24 Attending physician: Kranthi Cuevas Consults: 04/21/24 19:22 Consult Physician Routine Consulting Provider: Smith Talamantes Consult Reason/Comments: pacemaker eval Do you want consulting provider notified?: Yes 04/22/24 16:51 Consult Physician Routine Consulting Provider: Homar Murray Consult Reason/Comments: abn. cxr Do you want consulting provider notified?: Yes Primary care physician: Kranthi Cuevas Hospital Course: Final Diagnoses: Diabetes mellitus, uncontrolled, hemoglobin A1c 11.7 (11/05/2023), currently 16.3 ,hyperglycemic, resulting in cancellation of pacemaker generator change- further diabetic teaching outpatient in clinic with PCP. Acute UTI, culture in progress Dehydration Acute on chronic kidney disease, stage III, baseline creatinine 1.3 secondary to all the above, improved Left lower lobe pulmonary nodule measuring 1.5 cm, outpatient PET/CT as per pulmonary recommended Sick sinus syndrome History of permanent pacemaker implantation secondary to complete heart block. Persistent atrial fibrillation on Xarelto Hypertension COPD Former nicotine dependence Gastroesophageal reflux disease Left lower lung nodular density measuring up to 15 mm reported per chest x-ray, nonemergent CT imaging recommended for correlation. Hospital course:Chief Complaint: Hyperglycemic, generator change procedure canceled This is an 89-year-old gentleman presented yesterday for elective pacemaker generator change, blood sugars discovered to be in the 600 range, complaining of dysuria, frequency with concerns for acute UTI, elevated WBC and procedure was canceled with patient directed to the ER and admitted. Denies chest pain, palpitations or shortness of breath. Denies nausea vomiting or diarrhea. Denies abdominal pain. Family reported to the ER- poor appetite, failure to thrive, poor appetite. Patient reports he has been snacking frequently on cookies and ice cream. UA reported greater than 182 WBCs, large leukocytes, negative nitrates, moderate blood and trace ketones. Afebrile, WBC 23.3. hemoglobin 14.5, platelets 419, INR 21.7, sodium 144, potassium 3.4, bicarb 24 gap 16, BUN 43, creatinine 1.63. Blood sugars last night decrease into the 90s, currently 301. EKG paced, chest x-ray reported no acute cardiopulmonary disease process, left lower lobe nodular density. 04/23/2024 blood sugars better controlled, on Levemir. Hemoglobin A1c 16.3- discussed with patient and patient will be discharged home on Lantus insulin and metformin with further diabetic teaching outpatient in clinic with PCP. Consistent carb diet reinforced with dietitian consult in place. renal function returned to baseline, 1.23 with holding lisinopril and hydrochlorothiazide. Denies chest pain, palpitations or shortness of breath. Evaluated by pulmonary regarding left lower lobe nodular density, recommending outpatient PET scan for further follow-up. Maintain antibiotics , urinary culture pending .discharge planning in progress for tomorrow with home care; patient will require Lantus insulin at [place]. Cardiology resuming Xarelto, has cleared patient for discharge , recommending further follow-up for rescheduling of generator change. Evaluated by pulmonary recommending further follow-up outpatient/PET scan. Significant clinical improvement. Patient will be discharged home with home care today in a stable condition with guarded prognosis. Denies chest pain, palpitations or shortness of breath. Maintaining O2 sats in the 90s on room air. The impression and plan of care has been dictated as directed. : I performed a history and examination of this patient, discussed the same with the dictator. I agree with the dictator's note ,documented as a scribe. Any additional findings or plans will be noted. Patient Condition at Discharge: Stable Plan - Discharge Summary Discharge Rx Participant: No New Discharge Prescriptions: New Insulin Glargine,Hum.rec.anlog [Lantus Solostar Pen] 15 units SQ DAILY #2 each Pantoprazole [Protonix] 40 mg PO AC-BRKFST #30 tab cefUROXime axetiL [Ceftin] 500 mg PO BID 4 Days #8 tab Continue hydrALAZINE HCL [Apresoline] 50 mg PO DIRECTED atenoloL [Tenormin] 25 mg PO DAILY amLODIPine [Norvasc] 5 mg PO DAILY Tamsulosin [Flomax] 0.4 mg PO DAILY metFORMIN HCL [Glucophage] 1,000 mg PO BID Changed Rivaroxaban [Xarelto] 15 mg PO W/SUPPER #0 Discontinued lisinopriL [Zestril] 20 mg PO BID Pioglitazone [Actos] 15 mg PO DAILY Glimepiride [Amaryl] 4 mg PO AC-BID hydroCHLOROthiazide 25 mg PO DAILY Discharge Medication List amLODIPine [Norvasc] 5 mg PO DAILY 03/15/16 [History] atenoloL [Tenormin] 25 mg PO DAILY 03/15/16 [History] hydrALAZINE HCL [Apresoline] 50 mg PO DIRECTED 03/15/16 [History] Tamsulosin [Flomax] 0.4 mg PO DAILY 06/06/23 [History] metFORMIN HCL [Glucophage] 1,000 mg PO BID 10/05/23 [History] Insulin Glargine,Hum.rec.anlog [Lantus Solostar Pen] 15 units SQ DAILY #2 each 04/24/24 [Rx] Pantoprazole [Protonix] 40 mg PO AC-BRKFST #30 tab 04/24/24 [Rx] Rivaroxaban [Xarelto] 15 mg PO W/SUPPER #0 04/24/24 [Rx] cefUROXime axetiL [Ceftin] 500 mg PO BID 4 Days #8 tab 04/24/24 [Rx] Follow up Appointment(s)/Referral(s): Mark Romero MD [STAFF PHYSICIAN] - 1 Week Kranthi Cuevas DO [Primary Care Provider] - 3 Days (please call to schedule appt. ) Homar Murray DO [Doctor of Osteopathic Medicine] - 1 Week (please call to schedule. ) [facility] [NON-[facility]] - (please call to schedule. ) Patient Instructions/Handouts: Dehydration (DC), Urinary Tract Infection in Older Adults (DC) Activity/Diet/Wound Care/Special Instructions: Glucometer, Accu-Cheks before meals and at bedtime. Maintain log and take to follow-up visit with PCP for further recommendations. Further diabetic teaching outpatient in clinic with PCP. Consistent carb diet Patient will need outpatient PET scan to further evaluate pulmonary nodule of left lower lobe as per pulmonary Resume anticoagulation as per Cardiology. Discharge Disposition: HOME WITH HOME HEALTH SERVICES
[2024-04-24] MEDS ORDERED: RIVAROXABAN 15 MG TAB PO SCH (17:30)
== END 2024-04-24 13:45 | disposition home health service (06) | DRG 638 ==
LOC: EC 13:59 → 3SCARD 19:23
PROVIDERS: ADMIT Family Medicine; ATTEND Family Medicine
DX: E11.65 Type 2 diabetes mellitus with hyperglycemia (principal); I44.2 Atrioventricular block, complete; I48.19 Other persistent atrial fibrillation; N17.9 Acute kidney failure, unspecified; N39.0 Urinary tract infection, site not specified; E11.22 Type 2 diabetes mellitus with diabetic chronic kidney disease; E86.0 Dehydration; F03.90 Unspecified dementia, unspecified severity, without behavioral disturbance, psychotic disturbance, mood disturbance, and anxiety; I12.9 Hypertensive chronic kidney disease with stage 1 through stage 4 chronic kidney disease, or unspecified chronic kidney disease; I49.5 Sick sinus syndrome; J44.9 Chronic obstructive pulmonary disease, unspecified; K21.9 Gastro-esophageal reflux disease without esophagitis; K44.9 Diaphragmatic hernia without obstruction or gangrene; M19.90 Unspecified osteoarthritis, unspecified site; N18.30 Chronic kidney disease, stage 3 unspecified; N40.0 Benign prostatic hyperplasia without lower urinary tract symptoms; R62.7 Adult failure to thrive; Z53.9 Procedure and treatment not carried out, unspecified reason; Z79.01 Long term (current) use of anticoagulants; Z79.4 Long term (current) use of insulin; Z79.84 Long term (current) use of oral hypoglycemic drugs; Z79.899 Other long term (current) drug therapy; Z86.16 Personal history of COVID-19; Z87.891 Personal history of nicotine dependence; Z95.0 Presence of cardiac pacemaker; T38.3X6A Underdosing of insulin and oral hypoglycemic [antidiabetic] drugs, initial encounter; Z91.128 Patient's intentional underdosing of medication regimen for other reason; R91.1 Solitary pulmonary nodule; Z87.01 Personal history of pneumonia (recurrent); Z71.3 Dietary counseling and surveillance; Z96.641 Presence of right artificial hip joint
CPT/HCPCS: 36415; 71046; 71260; 80048; 80053; 81001; 82947; 83036; 83735; 85025; 85027; 85610; 85730; 87086; 93005; 96365; 96366; 96374; 99285

== ENCOUNTER → 2024-04-21 | Day surgery (SDC) | payer MEDICARE, BC ==
[~2024-04-21] MED LIST changes: -HYDROmorphone 0.5 MG/0.5 ML SYRINGE IVP PRN; +INSULIN ASPART (NovoLOG) 100 UNIT/ML VIAL SQ SCH; -Pre Op ABX Message 1 EACH MISC MISCELLANE ONE; +SODIUM CHLORIDE 0.9% 1,000 ML IV SCH; +ceFAZolin 1 GM in SODIUM CHLORIDE 0.9% IRRIG BTL 250 ML IRRIGATION PRN
[2024-04-21 10:10] VITALS: BP 192/93; PULSE 67; RESP 18; TEMP 98
[2024-04-21] MEDS: IV FLUID CONTINUATION 1,000 ML IV ONE (10:10)
[2024-04-21] MEDS: SODIUM CHLORIDE 0.9% 1,000 ML IV SCH (10:10)
[2024-04-21 10:26] LABS: Glucose,Whole Blood 545 mg/dL (70-110)
[2024-04-21 10:26] LABS: Glucose,Whole Blood 526 mg/dL (70-110)
[2024-04-21 10:31] LABS: Basophils % (A) 0 %; Eosinophils # (A) 0.1 k/uL (0-0.7); Eosinophils % (A) 1 %; HCT 44.2 % (39.0-53.0); HGB 14.4 gm/dL (13.0-17.5); Lymphocytes # (A) 1.2 k/uL (1.0-4.8); Lymphocytes % (A) 11 %; MCH 31.9 pg (25.0-35.0); MCHC 32.6 g/dL (31.0-37.0); MCV 97.7 fL (80.0-100.0); Mean Platelet Volume 10.1; Monocytes # (A) 0.6 k/uL (0-1.0); Monocytes % (A) 5 %; Neutrophils # (A) 9.3 k/uL (1.3-7.7); Neutrophils % (A) 83 %; Platelet Count 338 k/uL (150-450); RBC 4.52 m/uL (4.30-5.90); RDW 13.3 % (11.5-15.5); WBC 11.3 k/uL (3.8-10.6)
[2024-04-21 10:38] LABS: Prothrombin Time 10.7 sec (10.0-12.5)
[2024-04-21] MEDS: INSULIN ASPART (NovoLOG) 100 UNIT/ML VIAL SQ ONE ×2 (10:38→11:43)
[2024-04-21 10:54] LABS: African American GFR (CKD) 55 (>60 ml/min/1.73 sqM); Anion Gap 16 mmol/L; Blood Urea Nitrogen 40 mg/dL (9-20); Calcium 10.7 mg/dL (8.4-10.2); Carbon Dioxide 20 mmol/L (22-30); Chloride 100 mmol/L (98-107); Non-African American GFR(CKD) 47 (>60 ml/min/1.73 sqM); Potassium 4.9 mmol/L (3.5-5.1); Sodium 136 mmol/L (137-145)
[2024-04-21 10:55] LABS: Glucose 606 mg/dL (74-99)
[2024-04-21 11:32] LABS: Glucose,Whole Blood 512 mg/dL (70-110)
[2024-04-21 11:35] LABS: Glucose,Whole Blood 552 mg/dL (70-110)
[2024-04-21 12:27] LABS: Glucose,Whole Blood 507 mg/dL (70-110)
[2024-04-21] MEDS: INSULIN ASPART (NovoLOG) 100 UNIT/ML VIAL SQ SCH (12:39)
[2024-04-21 13:07] LABS: Glucose,Whole Blood 429 mg/dL (70-110)
--- NOTE | 2024-04-21 13:41 | P.PN ---
Progress Note - Text Patient presented for elective pacemaker generator change however noted to have hyperglycemia with sugars in the 600 range. Patient with family members who states PCP has been encouraging him to go onto insulin over the last few years however he has refused. Unfortunately has had failure to thrive with decreased appetite, decreased energy level, weight loss, more fatigue over the last 1-2 months. Attempted to give insulin without much significant improvement and sugar levels and on further questioning he is also having dysuria concerning for UTI and exam significantly lethargic. Concern for active infection with mildly increased white blood cell count as well as failure to thrive and therefore recommended to go to emergency department for further evaluation. Patient family members in agreement. Reschedule generator change when active infection cleared as well as reevaluate goals of care with patient having significant decline last 2 months.
[2024-04-21 14:04] LABS: Glucose,Whole Blood 374 mg/dL (70-110)
== END ==
LOC: CATHEP 09:44
PROVIDERS: ATTEND Internal Medicine
DX: Z53.8 Procedure and treatment not carried out for other reasons (principal)
CPT/HCPCS: 80048; 85025; 85610

== ENCOUNTER 2024-05-26 09:47 | Day surgery (SDC) | payer MEDICARE, BC ==
[2024-05-20 11:10] VITALS: BMI 21.2
[~2024-05-26 09:47] MED LIST changes: -INSULIN ASPART (NovoLOG) 100 UNIT/ML VIAL SQ SCH
[2024-05-26 10:24] VITALS: RESP 18; TEMP 97.1
[2024-05-26 10:31] LABS: Glucose,Whole Blood 126 mg/dL (70-110)
[2024-05-26] MEDS: IV FLUID CONTINUATION 1,000 ML IV ONE (10:33)
[2024-05-26 10:39] LABS: Basophils # (A) 0.1 k/uL (0-0.2); Basophils % (A) 0 %; Eosinophils # (A) 0.2 k/uL (0-0.7); Eosinophils % (A) 2 %; HCT 41.2 % (39.0-53.0); HGB 13.3 gm/dL (13.0-17.5); Lymphocytes # (A) 1.3 k/uL (1.0-4.8); Lymphocytes % (A) 12 %; MCHC 32.3 g/dL (31.0-37.0); MCV 96.2 fL (80.0-100.0); Mean Platelet Volume 7.9; Monocytes # (A) 0.7 k/uL (0-1.0); Monocytes % (A) 7 %; Neutrophils # (A) 8.4 k/uL (1.3-7.7); Neutrophils % (A) 77 %; Platelet Count 346 k/uL (150-450); RBC 4.28 m/uL (4.30-5.90); RDW 13.6 % (11.5-15.5); WBC 10.8 k/uL (3.8-10.6)
[2024-05-26 10:48] LABS: African American GFR (CKD) 74 (>60 ml/min/1.73 sqM); Anion Gap 12 mmol/L; Blood Urea Nitrogen 29 mg/dL (9-20); Calcium 9.8 mg/dL (8.4-10.2); Carbon Dioxide 27 mmol/L (22-30); Chloride 104 mmol/L (98-107); Glucose 136 mg/dL (74-99); Non-African American GFR(CKD) 64 (>60 ml/min/1.73 sqM); Potassium 3.9 mmol/L (3.5-5.1); Sodium 143 mmol/L (137-145)
[2024-05-26] MEDS: MIDAZOLAM 2 MG/2 ML VIAL IVP ONE ×2 (12:11→12:14)
[2024-05-26] MEDS: fentaNYL (PF) 50 MCG/ML 2 ML AMP IVP ONE ×2 (12:11→12:17)
[2024-05-26] MEDS: LIDOCAINE 1% INJ 10MG/ML (20 ML MDV) SQ ONE (12:14)
[2024-05-26] MEDS: ceFAZolin 2 GM in SODIUM CHLORIDE 0.9% 500 ML 500 ML IRRIGATION ONE (12:18)
[2024-05-26 15:47] VITALS: BP 136/76; PULSE 62
--- NOTE | 2024-05-26 16:28 | P.PCN ---
Description of Procedure: CARDIOLOGY PROCEDURE NOTE Decal Applier: Dr. Smith Talamantes Procedure performed: Dual chamber permanent pacemaker generator change Site: Left subclavian Indications: Sick Sinus Syndrome, Complete heart block, end of battery life Complications: None Blood Loss: Minimal Description of Procedure: After the risks, benefits, and alternatives of the above-mentioned procedure was explained in detail with the patient, informed consent was obtained. The patient was taken to the cardiac catheterization suite where the left subclavian area was sterily prepped and draped in the usual fashion. Patient was given IV Versed and fentanyl for sedation. The skin over the existing pulse generator was infiltrated with lidocaine. An incision was made in the skin and was deepened until the pectoral fascia was exposed. Hemostasis was obtained. The existing pulse generator was pulled out of the pocket. The leads were disconnected and were checked for thresholds. The existing leads were then inserted into the appropriate position into the new generator. They were then secured with the setscrew provided. The leads and generator were inserted into the pocket with the leads posterior. The subcutaneous tissue was approximated utilizing #2.0 and 3.0 vicryl in an interrupted stitch fashion. The dermal layer was approximated utilizing #4.0 vicryl. The area was cleansed with sterile saline and dried. A sterile 4x4 dressing was applied and the patient was transferred to the post catheterization holding area in stable and satisfactory condition. The patient tolerated the procedure well. Generator Data Sales Inspector: [employer] Brand: [id number] Driscoll XT DR MRI Model #: [id number] Serial#: [id number] Right Atrial Bipolar Lead Data: Type: Active fixation lead Sales Inspector: [employer] Model#: 5592-45 Serial Number: [id number] Right Ventricular Bipolar Lead Data: Type: Active fixation lead Sales Inspector: [employer] Model #: 5092-58 Serial #: [id number] Stimulation Thresholds: Right atrial bipolar lead pacing and sensing thresholds Voltage: Afib Impedance: 418 ohms P-wave sensin.0 mV Right Ventricular bipolar lead pacing and sensing thresholds Pulse Width: 0.4ms Voltage: 0.75 volts Impedance: 494 ohms R-wave sensing: Dependent Parameter Setting: Pacing mode is DDDR Lower rate 60 bpm Upper rate 120 bpm Impressions: 1. Successful generator change of a dual chamber permanent pacemaker in the left pectoral site. Plan: 1. Routine post procedure care will be instituted as well as outpatient follow- up surveillance.
== END 2024-05-26 15:25 | disposition home or self-care (01) ==
LOC: CATHEP 09:47
PROVIDERS: ATTEND Internal Medicine
DX: T82.110A Breakdown (mechanical) of cardiac electrode, initial encounter
CPT/HCPCS: 33228; 80048; 85025